=== PATIENT | female | born 1945 | race Caucasian/White ===

== ENCOUNTER 2021-04-15 17:16 | Inpatient (IN) | payer MEDICARE, OTHER ==
[~2021-04-15] VITALS: Ht 172.7 cm; Wt 86.0 kg
[~2021-04-15 17:16] MED LIST: CALCIUM; ESTR50GE TD; MAGN400C PO; NORCO10T PO; OMEP-84 PO; ROSU20TA2 PO; SYN0.088T PO
--- NOTE | 2021-04-15 17:42 | NUR ---
DAUGHTER CALLED NUMBER IS IN CHART WANTS TO BE UPDATED ON PT WHEN CAN.
[2021-04-15 17:54] LABS: URINE AMPHETAMINE SCREEN NEGATIVE (Neg); URINE BARBITUATE SCREEN NEGATIVE (Neg); URINE BENZODIAZEPINES SCREEN NEGATIVE (Neg); URINE CANNABINOID SCREEN NEGATIVE (Neg); URINE COCAINE SCREEN NEGATIVE (Neg); URINE METHADONE SCREEN NEGATIVE (Neg); URINE OPIATE SCREEN NEGATIVE (Neg); URINE PHENCYCLIDINE SCREEN NEGATIVE (Neg)
[2021-04-15 18:26] LABS: BASOPHILS % (AUTO) 0.8 % (0-1); EOSINOPHILS # (AUTO) 0.1 X10'3 (0-0.9); EOSINOPHILS % (AUTO) 0.9 % (0-6); HEMATOCRIT 37.4 % (35.0-45.0); HEMOGLOBIN 12.2 g/dl (12.0-16.0); LYMPHOCYTES # (AUTO) 1.5 X10'3 (1.1-4.8); LYMPHOCYTES % (AUTO) 24.8 % (21-51); MEAN CORPUSCULAR HEMOGLOBIN 26.6 PG (27.0-31.0); MEAN CORPUSCULAR HGB CONC 32.7 g/dL (33.0-36.5); MEAN CORPUSCULAR VOLUME 81.4 FL (78-98); MEAN PLATELET VOLUME 9.2 FL (7.4-10.4); MONOCYTES # (AUTO) 0.4 X10'3 (0-0.9); MONOCYTES % (AUTO) 7.2 % (2-12); NEUTROPHILS # (AUTO) 4.1 X10'3 (1.8-7.7); NEUTROPHILS % (AUTO) 66.3 % (42-75); PLATELET COUNT 194 X10'3 (140-440); RED CELL DISTRIBUTION WIDTH 19.2 % (11.5-14.5); WHITE BLOOD COUNT 6.2 X10'3 (4.5-11.0)
[2021-04-15 18:37] LABS: APTT 23 SECONDS (22-32)
[2021-04-15 18:42] LABS: ALANINE AMINOTRANSFERASE 79 U/L (12-78); ALBUMIN 3.5 G/DL (3.4-5.0); ALBUMIN/GLOBULIN RATIO 0.8 (1.1-1.5); ALKALINE PHOSPHATASE 103 IU/L (46-116); ANION GAP 13 (8-16); ASPARTATE AMINO TRANSFERASE 88 U/L (10-37); BILIRUBIN,TOTAL 0.2 MG/DL (0.1-1.0); BLOOD UREA NITROGEN 16 MG/DL (7-18); BUN/CREATININE RATIO 15.5 (6.6-38.0); CALCIUM 8.6 MG/DL (8.5-10.1); CHLORIDE 97 MMOL/L (99-107); CREATININE 1.03 MG/DL (0.40-0.90); GLUCOSE 112 MG/DL (70-104); SODIUM 138 MMOL/L (135-145); TOTAL CARBON DIOXIDE 27.6 MMOL/L (24-32); TOTAL PROTEIN 7.9 G/DL (6.4-8.2); eGFR 53 ML/MIN
[2021-04-15 18:46] LABS: POTASSIUM 3.3 MMOL/L (3.5-5.1)
[2021-04-15 18:52] LABS: ETHANOL < 0.010 GM/DL (0.0-0.010)
--- NOTE | 2021-04-15 19:27 | NUR ---
NOTED DURING REPORT THAT MAURICE BERMAN ORIGINALLY CARING FOR PT HAD DISCUSSED WITH DR MARISCAL TO NOT HAVE PT ON A STROKE ALERT.
[2021-04-15 20:13] LABS: CLARITY,URINE CLEAR (Clear); COLOR,URINE YELLOW (Yellow); GLUCOSE, URINE NEGATIVE (Neg); KETONES,URINE TRACE mg/dl (Neg); LEUKOCYTE ESTERASE ,URINE NEGATIVE (Neg); NITRITES, URINE NEGATIVE (Neg); OCCULT BLOOD,URINE SMALL (Neg); PH,URINE 6.5 (4.8-8.0); PROTEIN,URINE 100 mg/dl (Neg); UROBILINOGEN,URINE 0.2 E.U/dL (0.2-1.0)
[2021-04-15 20:20] LABS: UA COLLECTION TYPE STRAIGHT CATH
[2021-04-15 20:27] LABS: BACTERIA,URINE NONE SEEN /HPF (Neg); RBC,URINE 0-2 /HPF (0-2); SQUAMOUS EPITHELIAL CELL,UR FEW /LPF (FEW); WBC,URINE 0-4 /HPF (0-4)
--- NOTE | 2021-04-15 20:31 | NUR ---
SPOKE WITH DR. MATOS REGARDING PATIENT AND MOST RECENT NEURO ASSESSMENT. ALSO RELAYED INFORMATION FROM CAREGIVER REGARING PATIENT'S FLU-LIKE SYMPTOMS FOR FIVE DAYS--SORE THROAT, BODY ACHES, AND DIFFICULTY BREATHING. ALSO PREFACED THAT PATIENT HAS BEEN TAKING 20MG CORTIZONE IN THE AM AND 10MG CORTIZONE IN THE PM.
[2021-04-15] MEDS ORDERED: normal saline 1000ml 1,000 ML IV SCH (21:10)
[2021-04-15] MEDS ORDERED: ondansetron/PF 4mg/2ml inj IV PRN (21:10)
[2021-04-15] MEDS ORDERED: mag hydrox/Alum hydrox/simeth 30ml oral suspension PO PRN (21:10)
[2021-04-15] MEDS ORDERED: magnesium 2GM in 50ml NS 50 ML IV PRN (21:10)
[2021-04-15] MEDS ORDERED: magnesium Cl slow-release 64mg tablet PO PRN (21:10)
[2021-04-15] MEDS ORDERED: magnesium hydroxide 30ml (MOM) UD suspension PO PRN (21:10)
[2021-04-15] MEDS ORDERED: potassium Cl 20 mEq SR tablet PO PRN (21:10)
[2021-04-15] MEDS ORDERED: potassium CL 10mEq/100ml bag 100 ML IV PRN (21:10)
[2021-04-15] MEDS ORDERED: magnesium 4gm in 100ml NS 100 ML IV PRN (21:10)
[2021-04-15 21:15] LABS: TOTAL CELLS COUNTED 100
[2021-04-15 21:16] LABS: ANISOCYTOSIS 2+; LARGE PLATELETS FEW; PLATELET ESTIMATE NORMAL
[2021-04-15 21:17] LABS: POLYCHROMASIA FEW; TOXIC GRANULATION 1+; TOXIC VACUOLATION 1+
[2021-04-15] MEDS ORDERED: levoTHYROXINE sod inj. 100mcg/5 ml vial IV ONE (21:20)
[2021-04-15] MEDS ORDERED: dexamethasone 4mg/ml inj IV ONE (21:40)
[2021-04-15 22:05] LABS: MAGNESIUM 1.6 MG/DL (1.5-2.4)
[2021-04-16 01:25] LABS: BASOPHILS # (AUTO) 0.1 X10'3 (0-0.2); BASOPHILS % (AUTO) 0.9 % (0-1); EOSINOPHILS % (AUTO) 0.3 % (0-6); HEMATOCRIT 35.9 % (35.0-45.0); LYMPHOCYTES # (AUTO) 0.7 X10'3 (1.1-4.8); LYMPHOCYTES % (AUTO) 8.5 % (21-51); MEAN CORPUSCULAR HEMOGLOBIN 26.9 PG (27.0-31.0); MEAN CORPUSCULAR HGB CONC 33.3 g/dL (33.0-36.5); MEAN PLATELET VOLUME 8.3 FL (7.4-10.4); MONOCYTES # (AUTO) 0.4 X10'3 (0-0.9); MONOCYTES % (AUTO) 4.9 % (2-12); NEUTROPHILS # (AUTO) 6.5 X10'3 (1.8-7.7); NEUTROPHILS % (AUTO) 85.4 % (42-75); PLATELET COUNT 211 X10'3 (140-440); RED BLOOD COUNT 4.44 X10'6 (4.20-5.60); WHITE BLOOD COUNT 7.7 X10'3 (4.5-11.0)
[2021-04-16 01:39] LABS: ALANINE AMINOTRANSFERASE 80 U/L (12-78); ALBUMIN 3.2 G/DL (3.4-5.0); ALBUMIN/GLOBULIN RATIO 0.8 (1.1-1.5); ALKALINE PHOSPHATASE 101 IU/L (46-116); ANION GAP 12 (8-16); ASPARTATE AMINO TRANSFERASE 96 U/L (10-37); BILIRUBIN,TOTAL 0.3 MG/DL (0.1-1.0); BLOOD UREA NITROGEN 15 MG/DL (7-18); BUN/CREATININE RATIO 16.7 (6.6-38.0); CALCIUM 8.1 MG/DL (8.5-10.1); CHLORIDE 100 MMOL/L (99-107); GLUCOSE 154 MG/DL (70-104); MAGNESIUM 1.7 MG/DL (1.5-2.4); POTASSIUM 3.3 MMOL/L (3.5-5.1); SODIUM 138 MMOL/L (135-145); TOTAL CARBON DIOXIDE 26.2 MMOL/L (24-32); TOTAL PROTEIN 7.4 G/DL (6.4-8.2); eGFR 61 ML/MIN
[2021-04-16 02:53] LABS: LARGE PLATELETS FEW; PLATELET ESTIMATE NORMAL; POLYCHROMASIA FEW
[2021-04-16 02:54] LABS: ANISOCYTOSIS 2+
--- NOTE | 2021-04-16 07:55 | NUR ---
Patient in room ED HALL03. I have received report from Ozzie RICHARDS and had the opportunity to ask questions and assume patient care.
[2021-04-16] MEDS ORDERED: enoxaparin 40mg/0.4ml syringe SUBCUT SCH (08:00)
[2021-04-16] MEDS: docusate sod 100mg capsule PO SCH ×2 (08:00→20:00)
[2021-04-16] MEDS: K and/or MAG REPLACEMENT MC SCH ×2 (08:00→20:00)
[2021-04-16] MEDS ORDERED: dexamethasone inj 6 MG in normal saline 50ml IV soln 50 ML IV SCH (08:00)
[2021-04-16 08:30] VITALS: BP 114/65
[2021-04-16] MEDS: potassium Cl 20 mEq SR tablet PO PRN ×3 (08:55→17:56)
[2021-04-16] MEDS: acetaminophen 325mg tablet PO PRN (08:55)
[2021-04-16 10:38] VITALS: BP 123/59
[2021-04-16] MEDS ORDERED: HYDR20TA24 PO (12:02)
[2021-04-16] MEDS ORDERED: HYDR12.55 PO (12:02)
[2021-04-16] MEDS ORDERED: HYDR-4318 PO (12:02)
--- NOTE | 2021-04-16 12:02 | NUR ---
BMI screen: Pt BMI 2.7 w/ current wt not scaled likely error at 8.18kg. MARY d/w RN regarding scaled wt this admit. Addendum: 04/16/21 at [address] Amended: Links added.
--- NOTE | 2021-04-16 12:04 | NUR ---
PAGER ID: [phone] MESSAGE: [phone], [place] new medications entered into medrec, please address. thank you, john [phone]
--- NOTE | 2021-04-16 12:07 | NUR ---
wants to know who manages this patients hydrocortisone prior to addressing her med rec.
--- NOTE | 2021-04-16 12:13 | NUR ---
Patient states she takes 20 mg of hydrocortisone in the morning and 10mg at night, patient is alert and oriented x4. Dr. 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 Called [facility] in [place] to ask for a faxed report of medications she gets filled there. Had a documented allergy to prednisone, patient states she is not allergic to prednisone to her knowledge. Attempted to call Dr. Shelton, no answer at the office.
[2021-04-16] MEDS ORDERED: pneumococcal 23-VAL P-sac vacc 25 mcg/0.5ml vial IMVAC ONE (13:15)
[2021-04-16] MEDS ORDERED: CALC-1215 PO (13:43)
--- NOTE | 2021-04-16 14:09 | NUR ---
PAGER ID: [phone] MESSAGE: [phone], [place] patient is complaining of 8/10 back pain, takes norco at home. Can i please get something ordered for her? john [phone]
--- NOTE | 2021-04-16 14:13 | NUR ---
Dr. Sanchez office coordinator receptionist returned my call and confirmed that patient takes hydrocortisone 20mg in the morning and 10mg at night, as patient stated.
[2021-04-16] MEDS ORDERED: HYDROcodone/acetaminophen 10/325mg tab PO ONE (14:15)
[2021-04-16 14:37] VITALS: BP 131/76
--- NOTE | 2021-04-16 15:27 | NUR ---
Agreeable to flu and pneumococcal vaccine, would like to wait until d/c to receive them.
--- NOTE | 2021-04-16 15:55 | NUR ---
Per MD we are not pursing a stroke work up, patient has no stroke deficits and is alert and oriented x4
[2021-04-16 18:00] VITALS: BP 123/60
--- NOTE | 2021-04-16 18:27 | NUR ---
Problems reprioritized. Patient report given, questions answered & plan of care reviewed with Jerilyn RICHARDS.
[2021-04-16] MEDS: HYDROcodone/acetaminophen 10/325mg tab PO PRN (19:19)
[2021-04-16] MEDS ORDERED: hydrocortisone 10mg tablet PO SCH ×2 (20:00→21:00)
[2021-04-16 22:37] VITALS: BP 123/70
[2021-04-17 02:00] VITALS: BP 126/60
--- NOTE | 2021-04-17 06:14 | NUR ---
Patient in room ORTHO 4022. I have received report from Jerilyn RICHARDS and had the opportunity to ask questions and assume patient care.
[2021-04-17 06:38] VITALS: BP 132/77
[2021-04-17] MEDS ORDERED: levoTHYROXINE 112mcg tablet PO SCH (07:00)
--- NOTE | 2021-04-17 07:02 | NUR ---
PAGER ID: [phone] MESSAGE: [phone], [place] complaining of shortness of breath and chest pain, doing EKG now. Can i please get albuterol inhaler? sp02 on room air is 95%. Catrina [phone]
[2021-04-17] MEDS ORDERED: ALBUTEROL INHALER 1 PUFF/90 MCG INHALER IH PRN (07:05)
[2021-04-17] MEDS: docusate sod 100mg capsule PO SCH (08:00)
[2021-04-17] MEDS: K and/or MAG REPLACEMENT MC SCH (08:00)
[2021-04-17] MEDS ORDERED: HYDROchlorothiazide 25mg tablet PO SCH (08:00)
[2021-04-17] MEDS ORDERED: hydrocortisone 10mg tablet PO SCH (08:00)
[2021-04-17] MEDS ORDERED: HYDROchlorothiazide 12.5mg capsule PO SCH (08:00)
[2021-04-17] MEDS ORDERED: enoxaparin 30mg/0.3ml syringe SUBCUT SCH (08:00)
[2021-04-17] MEDS ORDERED: FLU VACC QS2021-22(6MOS UP)/PF 60 MCG/0.5 ML SYRINGE IM ONE (08:00)
[2021-04-17 08:05] LABS: BASOPHILS % (AUTO) 0.1 % (0-1); EOSINOPHILS % (AUTO) 0 % (0-6); HEMATOCRIT 36.3 % (35.0-45.0); HEMOGLOBIN 11.8 g/dl (12.0-16.0); LYMPHOCYTES % (AUTO) 6.6 % (21-51); MEAN CORPUSCULAR HEMOGLOBIN 26.9 PG (27.0-31.0); MEAN CORPUSCULAR HGB CONC 32.5 g/dL (33.0-36.5); MEAN CORPUSCULAR VOLUME 82.6 FL (78-98); MEAN PLATELET VOLUME 9.4 FL (7.4-10.4); MONOCYTES # (AUTO) 0.7 X10'3 (0-0.9); MONOCYTES % (AUTO) 4.4 % (2-12); NEUTROPHILS # (AUTO) 13.5 X10'3 (1.8-7.7); NEUTROPHILS % (AUTO) 88.9 % (42-75); PLATELET COUNT 207 X10'3 (140-440); RED BLOOD COUNT 4.39 X10'6 (4.20-5.60); WHITE BLOOD COUNT 15.2 X10'3 (4.5-11.0)
[2021-04-17] MEDS: HYDROcodone/acetaminophen 10/325mg tab PO PRN (08:17)
--- NOTE | 2021-04-17 09:19 | NUR ---
Patient complained of shortness of breath and chest pain this morning, EKG done, sinus rhythm. Paged Dr. Richmond, got albuterol inhaler ordered. Patients sp02 at this time was in high 90s on room air, norco given for back pain.
[2021-04-17 09:53] LABS: ALANINE AMINOTRANSFERASE 69 U/L (12-78); ALBUMIN 3.1 G/DL (3.4-5.0); ALBUMIN/GLOBULIN RATIO 0.7 (1.1-1.5); ALKALINE PHOSPHATASE 91 IU/L (46-116); ANION GAP 11 (8-16); ASPARTATE AMINO TRANSFERASE 64 U/L (10-37); BILIRUBIN,TOTAL 0.3 MG/DL (0.1-1.0); BLOOD UREA NITROGEN 19 MG/DL (7-18); BUN/CREATININE RATIO 18.8 (6.6-38.0); CALCIUM 8.8 MG/DL (8.5-10.1); CHLORIDE 104 MMOL/L (99-107); CREATININE 1.01 MG/DL (0.40-0.90); GLUCOSE 154 MG/DL (70-104); MAGNESIUM 1.7 MG/DL (1.5-2.4); POTASSIUM 4.1 MMOL/L (3.5-5.1); SODIUM 140 MMOL/L (135-145); TOTAL CARBON DIOXIDE 25.2 MMOL/L (24-32); TOTAL PROTEIN 7.3 G/DL (6.4-8.2); eGFR 54 ML/MIN
[2021-04-17 10:25] VITALS: BP 148/75
--- NOTE | 2021-04-17 11:08 | NUR ---
Initial: Pt admit DX COVID-19, hypothyroidism, and encephalopathy-now resolved per EMR. Pt PO 100% heart healthy diet on room air meeting estimated needs. RD d/w RN regarding liberalization to regular diet if MD agreeable given no cardiac PMH per EMR and serum Na WNL. RN aware of BMI 2.7 pending scaled wt as current wt 8.18kg error. Pt daily etoh per MD note however RN reports pt drinks glass of wine w/ dinner and no more; tox screen WNL on admit. No nutrition intervention at this time. Will continue to monitor. Rec: 1. liberalize to regular diet; no cardiac hx per EMR w/ serum Na WNL 2. routine bowel care 3. scaled wt this admit; subsequent weekly wts Addendum: 04/17/21 at [address] Amended: Links added.
[2021-04-17] MEDS: acetaminophen 325mg tablet PO PRN (11:25)
--- NOTE | 2021-04-17 11:38 | NUR ---
Medicated patient for fever.
--- NOTE | 2021-04-17 13:17 | NUR ---
Discussed with MD patients fever and episode of shortness of breath this AM, MD to d/c patient. Per patient she has no one to take her home, lives in [place]. Page sent to case management.
--- NOTE | 2021-04-17 13:27 | NUR ---
Attempted to call patients daughter regarding discharge and need for a ride, no answer. Mailbox was full, not able to leave a message at this time.
--- NOTE | 2021-04-17 13:33 | NUR ---
discharged pt for home today, pt does not have a ride home, case mangcarrie got a hold of [facility] [employer] and behavioral health case manager told me that [employer] [facility] would take this pt home to [place] but will be charging an extra 100 dollars because the pt is from COVID unit, nursing sup consented for pt to be driven home by [employer]
--- NOTE | 2021-04-17 13:43 | NUR ---
Per case management [facility] will take covid patients. Attempting to call cab company now.
[2021-04-17] MEDS ORDERED: POTA10TA37 PO (14:08)
[2021-04-17] MEDS ORDERED: LEVO112T5 PO (14:08)
--- NOTE | 2021-04-17 14:48 | NUR ---
Called medications in to [facility]
--- NOTE | 2021-04-17 14:53 | NUR ---
Walked patient with [facility] 60 feet, sp02 96% during ambulation therefor did not qualify for home oxygen.
--- NOTE | 2021-04-17 15:12 | NUR ---
Patient discharged home via [facility], medications called in to [facility] in [place]. Patient was given discharge instructions including when to seek help if needed. Provided patient with sp02 monitor to monitor oxygen at home. Patient understood all instructions that were given to her and had no questions for this RN. IVs removed cannula intact, no s/s of phlebitis.
[2021-04-18] MEDS ORDERED: LEVO112T5 PO (20:12)
[2021-04-18] MEDS ORDERED: POTA-280 PO (20:12)
== END 2021-04-17 15:00 | disposition home or self-care (01) | DRG 178 ==
LOC: ER 17:17 → ED HOLD 21:12 → EDBEDREQ 04-16 07:29 → ORTHO 4S 04-16 08:25
PROVIDERS: ADMIT Internal Medicine; ATTEND Internal Medicine
DX: U07.1 COVID-19 (principal); G93.49 Other encephalopathy; E23.0 Hypopituitarism; E03.9 Hypothyroidism, unspecified; E78.5 Hyperlipidemia, unspecified; R47.81 Slurred speech; R94.6 Abnormal results of thyroid function studies; I25.10 Atherosclerotic heart disease of native coronary artery without angina pectoris; I44.7 Left bundle-branch block, unspecified; Z79.890 Hormone replacement therapy; Z28.21 Immunization not carried out because of patient refusal; Z88.8 Allergy status to other drugs, medicaments and biological substances; Z79.899 Other long term (current) drug therapy; Z72.89 Other problems related to lifestyle
CPT/HCPCS: 36415; 70450; 71045; 80053; 80305; 80320; 81001; 82948; 83735; 84132; 84145; 84439; 84443; 84484; 85007; 85008; 85025; 85610; 85730; 87081; 87635; 93005; 99285; C9803; G0378; J1100; J1650; J3480; J3490; J7030

== ENCOUNTER 2021-04-18 12:34 | Inpatient (IN) | payer MEDICARE ==
[2021-04-18] VITALS (8 sets, daily range): BP systolic 72–103; BP diastolic 43–58
[~2021-04-18] VITALS: Ht 160 cm; Wt 75.0 kg
[~2021-04-18 12:34] MED LIST changes: +CALC-1215 PO; -CALCIUM; +HYDR-4318 PO; +HYDR12.55 PO; +HYDR20TA24 PO; +LEVO112T5 PO; -NORCO10T PO; +POTA10TA37 PO; -SYN0.088T PO
[2021-04-18] MEDS ORDERED: normal saline 1000ML IV soln IV ONE (12:40)
[2021-04-18 13:55] LABS: ALANINE AMINOTRANSFERASE 104 U/L (12-78); ALBUMIN/GLOBULIN RATIO 0.7 (1.1-1.5); ALKALINE PHOSPHATASE 95 IU/L (46-116); ANION GAP 20 (8-16); ASPARTATE AMINO TRANSFERASE 330 U/L (10-37); BILIRUBIN,TOTAL 0.5 MG/DL (0.1-1.0); BLOOD UREA NITROGEN 32 MG/DL (7-18); BUN/CREATININE RATIO 14.3 (6.6-38.0); CHLORIDE 101 MMOL/L (99-107); CREATININE 2.23 MG/DL (0.40-0.90); GLUCOSE 125 MG/DL (70-104); MAGNESIUM 1.7 MG/DL (1.5-2.4); POTASSIUM 4.3 MMOL/L (3.5-5.1); SODIUM 139 MMOL/L (135-145); TOTAL CARBON DIOXIDE 17.7 MMOL/L (24-32); TOTAL PROTEIN 7.3 G/DL (6.4-8.2); eGFR 22 ML/MIN
[2021-04-18 14:10] LABS: BASOPHILS # (AUTO) 0.1 X10'3 (0-0.2); EOSINOPHILS % (AUTO) 0.1 % (0-6); MONOCYTES # (AUTO) 0.2 X10'3 (0-0.9); MONOCYTES % (AUTO) 1.5 % (2-12)
[2021-04-18] MEDS ORDERED: piperacillin/tazo 3.375gm/50ml 50 ML IV ONE (14:10)
[2021-04-18] MEDS ORDERED: vancomycin/NS 1 GM ADD-VANTAGE 250 ML IV ONE (14:10)
[2021-04-18] MEDS ORDERED: aspirin 300mg supp.rect RC ONE (14:10)
[2021-04-18 14:11] LABS: BASOPHILS % (AUTO) 0.8 % (0-1); HEMATOCRIT 36.8 % (35.0-45.0); HEMOGLOBIN 11.9 g/dl (12.0-16.0); LYMPHOCYTES # (AUTO) 1.8 X10'3 (1.1-4.8); MEAN CORPUSCULAR HEMOGLOBIN 26.5 PG (27.0-31.0); MEAN CORPUSCULAR HGB CONC 32.4 g/dL (33.0-36.5); MEAN CORPUSCULAR VOLUME 81.7 FL (78-98); MEAN PLATELET VOLUME 8.9 FL (7.4-10.4); NEUTROPHILS # (AUTO) 9.6 X10'3 (1.8-7.7); NEUTROPHILS % (AUTO) 82.6 % (42-75); PLATELET COUNT 206 X10'3 (140-440); RED BLOOD COUNT 4.51 X10'6 (4.20-5.60); WHITE BLOOD COUNT 11.7 X10'3 (4.5-11.0)
[2021-04-18] MEDS ORDERED: ringers solution, lacted 1,000 ML IV ONE ×2 (14:15→23:00)
[2021-04-18] MEDS ORDERED: hydrocortisone sod succ/PF 100mg/2ml inj. IV ONE (14:15)
[2021-04-18] MEDS ORDERED: heparin 10,000 units/1 ML INJ IV PRN ×2 (14:20→19:40)
[2021-04-18] MEDS ORDERED: heparin 10,000 units/1 ML INJ IV ONE ×2 (14:20→19:40)
[2021-04-18 14:57] LABS: ANISOCYTOSIS 2+; PLATELET ESTIMATE NORMAL; TOTAL CELLS COUNTED 100
--- NOTE | 2021-04-18 15:05 | NUR ---
DAWIT [phone] BENNETT
[2021-04-18 15:25] LABS: APTT 25 SECONDS (22-32)
[2021-04-18 15:25] LABS: ABG BASE EXCESS -9.6 mmol/L (-2.0-2.0); ABG HCO3 13.7 mmol/L (22.0-26.0); ABG OXYGEN SATURATION 90.2 % (94-97); ABG PCO2 (T) 25.2 mmHg (32.0-45.0); ABG PO2 (T) 68.7 mmHg (75.0-100.0); FCOHb 0.3 % (0.0-3.9); FLOW 4 L/min; FMetHb 0.1 % (0.0-1.5); FO2Hb 89.8 % (94-97); PATIENT TEMPERATURE 38.3; TOTAL HEMOGLOBIN 12.1 G/dl (12.0-16.0)
[2021-04-18 15:32] LABS: CLARITY,URINE SLIGHTLY CLOUDY (Clear); COLOR,URINE YELLOW (Yellow); GLUCOSE, URINE NEGATIVE (Neg); KETONES,URINE NEGATIVE (Neg); LEUKOCYTE ESTERASE ,URINE NEGATIVE (Neg); NITRITES, URINE NEGATIVE (Neg); OCCULT BLOOD,URINE LARGE (Neg); PROTEIN,URINE >=300 mg/dl (Neg); UROBILINOGEN,URINE 0.2 E.U/dL (0.2-1.0)
[2021-04-18 15:44] LABS: UA COLLECTION TYPE NON-SPECIFIED
[2021-04-18 15:45] LABS: HYALINE CASTS 0-3 /LPF (NEGATIVE); SQUAMOUS EPITHELIAL CELL,UR FEW /LPF (FEW)
[2021-04-18 15:46] LABS: BACTERIA,URINE 1+ /HPF (Neg); MUCUS STRANDS FEW /LPF (Neg); WBC,URINE 0-4 /HPF (0-4)
[2021-04-18] MEDS: heparin 25,000 UNIT/250ml bag 250 ML IV SCH (16:02)
--- NOTE | 2021-04-18 16:50 | NUR ---
DR CHEEMA MADE AWARE OF TEMP 101.1 NO ORDERS AT THIS TIME
[2021-04-18 16:53] LABS: CREATINE KINASE 15504 U/L (26-192)
[2021-04-18] MEDS ORDERED: acetaminophen 325mg tablet PO ONE (18:35)
[2021-04-18] MEDS ORDERED: acetaminophen 325mg tablet PO PRN (19:40)
[2021-04-18] MEDS ORDERED: heparin 25,000 UNIT/250ml bag 250 ML IV SCH (19:40)
[2021-04-18] MEDS ORDERED: ondansetron/PF 4mg/2ml inj IV PRN (19:40)
[2021-04-18] MEDS ORDERED: potassium Cl 20mEq/100mL bag 100 ML IV PRN (19:40)
[2021-04-18] MEDS ORDERED: vancomycin inj 1,250 MG in normal saline 250ml IV soln 250 ML IV SCH (20:00)
[2021-04-18] MEDS ORDERED: POTA-280 PO (20:12)
[2021-04-18] MEDS ORDERED: LEVO112T5 PO (20:12)
[2021-04-18] MEDS: normal saline 1000ml 1,000 ML IV SCH (20:39)
[2021-04-18 20:44] LABS: BASOPHILS % (AUTO) 0.1 % (0-1); EOSINOPHILS % (AUTO) 0 % (0-6); HEMATOCRIT 37.3 % (35.0-45.0); HEMOGLOBIN 12.1 g/dl (12.0-16.0); LYMPHOCYTES # (AUTO) 0.5 X10'3 (1.1-4.8); LYMPHOCYTES % (AUTO) 3.8 % (21-51); MEAN CORPUSCULAR HEMOGLOBIN 26.4 PG (27.0-31.0); MEAN CORPUSCULAR HGB CONC 32.5 g/dL (33.0-36.5); MEAN CORPUSCULAR VOLUME 81.4 FL (78-98); MEAN PLATELET VOLUME 8.8 FL (7.4-10.4); MONOCYTES # (AUTO) 0.1 X10'3 (0-0.9); MONOCYTES % (AUTO) 1.2 % (2-12); NEUTROPHILS # (AUTO) 11.5 X10'3 (1.8-7.7); NEUTROPHILS % (AUTO) 94.9 % (42-75); PLATELET COUNT 207 X10'3 (140-440); RED BLOOD COUNT 4.58 X10'6 (4.20-5.60); RED CELL DISTRIBUTION WIDTH 19.5 % (11.5-14.5); WHITE BLOOD COUNT 12.1 X10'3 (4.5-11.0)
[2021-04-18] MEDS ORDERED: REMDESIVIR 200 MG in NS 100ml IVPB Loading dose IV ONE (20:50)
[2021-04-18 21:02] LABS: APTT 72 SECONDS (22-32)
[2021-04-18 21:07] LABS: ALANINE AMINOTRANSFERASE 94 U/L (12-78); ALBUMIN 2.2 G/DL (3.4-5.0); ALBUMIN/GLOBULIN RATIO 0.6 (1.1-1.5); ALKALINE PHOSPHATASE 74 IU/L (46-116); ANION GAP 16 (8-16); ASPARTATE AMINO TRANSFERASE 326 U/L (10-37); BILIRUBIN,TOTAL 0.5 MG/DL (0.1-1.0); BLOOD UREA NITROGEN 30 MG/DL (7-18); BUN/CREATININE RATIO 16.9 (6.6-38.0); CALCIUM 7.8 MG/DL (8.5-10.1); CHLORIDE 105 MMOL/L (99-107); CREATININE 1.78 MG/DL (0.40-0.90); GLUCOSE 165 MG/DL (70-104); SODIUM 140 MMOL/L (135-145); TOTAL CARBON DIOXIDE 18.9 MMOL/L (24-32); eGFR 28 ML/MIN
[2021-04-18 21:08] LABS: AMYLASE 188 U/L (25-115); BILIRUBIN,DIRECT 0.2 MG/DL (0-0.3); LIPASE 322 U/L (73-393); MAGNESIUM 1.4 MG/DL (1.5-2.4); PHOSPHORUS 4.4 MG/DL (2.3-4.5)
[2021-04-18 21:51] LABS: ANISOCYTOSIS 2+; PLATELET ESTIMATE NORMAL
[2021-04-18 21:52] LABS: BURR CELLS FEW; ELLIPTOCYTES FEW
[2021-04-18] MEDS ORDERED: NORepinephrine 8mg/ 250ml NS 250 ML IV SCH (23:00)
[2021-04-18] MEDS ORDERED: NORepinephrine 8mg/ 250ml NS 250 ML IV ONE (23:06)
[2021-04-19] VITALS (17 sets, daily range): BP systolic 91–136; BP diastolic 40–72
[2021-04-19] MEDS ORDERED: dexamethasone 4mg/ml inj IM SCH
[2021-04-19] MEDS: dexamethasone inj 8 MG in normal saline 50ml IV soln 50 ML IV SCH ×4 (00:40→23:54)
[2021-04-19] MEDS: piperacillin/tazo 3.375gm/50ml 50 ML IV SCH ×4 (00:46→23:54)
[2021-04-19 02:58] LABS: BASOPHILS % (AUTO) 0.1 % (0-1); EOSINOPHILS % (AUTO) 0 % (0-6); HEMATOCRIT 34.1 % (35.0-45.0); HEMOGLOBIN 11.2 g/dl (12.0-16.0); LYMPHOCYTES # (AUTO) 0.6 X10'3 (1.1-4.8); LYMPHOCYTES % (AUTO) 3.8 % (21-51); MEAN CORPUSCULAR HEMOGLOBIN 26.7 PG (27.0-31.0); MEAN CORPUSCULAR HGB CONC 32.9 g/dL (33.0-36.5); MONOCYTES # (AUTO) 0.2 X10'3 (0-0.9); MONOCYTES % (AUTO) 1.5 % (2-12); NEUTROPHILS # (AUTO) 14.3 X10'3 (1.8-7.7); NEUTROPHILS % (AUTO) 94.6 % (42-75); PLATELET COUNT 200 X10'3 (140-440); RED BLOOD COUNT 4.21 X10'6 (4.20-5.60); RED CELL DISTRIBUTION WIDTH 19.5 % (11.5-14.5); WHITE BLOOD COUNT 15.1 X10'3 (4.5-11.0)
[2021-04-19 03:10] LABS: APTT 63 SECONDS (22-32)
[2021-04-19 03:18] LABS: ALANINE AMINOTRANSFERASE 85 U/L (12-78); ALBUMIN 2.1 G/DL (3.4-5.0); ALBUMIN/GLOBULIN RATIO 0.6 (1.1-1.5); ALKALINE PHOSPHATASE 66 IU/L (46-116); ANION GAP 13 (8-16); ASPARTATE AMINO TRANSFERASE 286 U/L (10-37); BILIRUBIN,TOTAL 0.5 MG/DL (0.1-1.0); BLOOD UREA NITROGEN 30 MG/DL (7-18); BUN/CREATININE RATIO 18.4 (6.6-38.0); CALCIUM 7.8 MG/DL (8.5-10.1); CHLORIDE 108 MMOL/L (99-107); CREATININE 1.63 MG/DL (0.40-0.90); GLUCOSE 146 MG/DL (70-104); MAGNESIUM 1.1 MG/DL (1.5-2.4); PHOSPHORUS 5.4 MG/DL (2.3-4.5); POTASSIUM 4.1 MMOL/L (3.5-5.1); SODIUM 142 MMOL/L (135-145); TOTAL CARBON DIOXIDE 21.3 MMOL/L (24-32); TOTAL PROTEIN 5.7 G/DL (6.4-8.2); eGFR 31 ML/MIN
[2021-04-19 04:00] LABS: ANISOCYTOSIS 2+; PLATELET ESTIMATE NORMAL; TOTAL CELLS COUNTED 100
[2021-04-19 04:01] LABS: BURR CELLS 1+
[2021-04-19 04:02] LABS: ELLIPTOCYTES FEW
[2021-04-19] MEDS ORDERED: magnesium 2GM in 50ml NS 50 ML IV ONE (04:35)
[2021-04-19] MEDS ORDERED: rocuronium 10mg/ml inj IV ONE (08:00)
[2021-04-19] MEDS ORDERED: etomidate 2mg/ml inj. ONE (08:00)
[2021-04-19] MEDS ORDERED: sod chloride 0.9% 10ml flush syringe IV ONE (08:00)
[2021-04-19] MEDS ORDERED: pantoprazole 40MG/D5 100ML BAG 100 ML IV SCH (08:00)
[2021-04-19] MEDS: acetaminophen 1,000mg/100ml IV 100 ML IV SCH ×3 (08:28→20:00)
[2021-04-19] MEDS: K and/or MAG REPLACEMENT MC SCH (08:31)
[2021-04-19 10:10] LABS: C DIFF SPECIMEN=DIARRHEA? ACCEPTABLE; C DIFFICILE TOXINS A&B NEGATIVE (Neg)
[2021-04-19] MEDS: pantoprazole 40MG/NS 100ML BAG 100 ML IV SCH (10:42)
[2021-04-19] MEDS ORDERED: PERFLUTREN PROTEIN-A MICROSPHR (Optison) 0.22 MG/ML 3ML VIAL IV ONE (13:00)
--- NOTE | 2021-04-19 13:18 | NUR ---
Pt transferred to [facility]. Pt belongings accounted for prior to transfer.
[2021-04-19 16:36] LABS: BASOPHILS % (AUTO) 0.1 % (0-1); EOSINOPHILS % (AUTO) 0 % (0-6); HEMATOCRIT 34.2 % (35.0-45.0); HEMOGLOBIN 11.2 g/dl (12.0-16.0); LYMPHOCYTES # (AUTO) 0.4 X10'3 (1.1-4.8); LYMPHOCYTES % (AUTO) 2.4 % (21-51); MEAN CORPUSCULAR HEMOGLOBIN 26.5 PG (27.0-31.0); MEAN CORPUSCULAR HGB CONC 32.6 g/dL (33.0-36.5); MEAN PLATELET VOLUME 8.8 FL (7.4-10.4); MONOCYTES # (AUTO) 0.2 X10'3 (0-0.9); MONOCYTES % (AUTO) 1.2 % (2-12); NEUTROPHILS # (AUTO) 15.4 X10'3 (1.8-7.7); NEUTROPHILS % (AUTO) 96.3 % (42-75); PLATELET COUNT 194 X10'3 (140-440); RED BLOOD COUNT 4.22 X10'6 (4.20-5.60); RED CELL DISTRIBUTION WIDTH 20.3 % (11.5-14.5)
[2021-04-19 16:54] LABS: ALANINE AMINOTRANSFERASE 81 U/L (12-78); ALBUMIN/GLOBULIN RATIO 0.5 (1.1-1.5); ALKALINE PHOSPHATASE 61 IU/L (46-116); ANION GAP 14 (8-16); ASPARTATE AMINO TRANSFERASE 252 U/L (10-37); BILIRUBIN,TOTAL 0.4 MG/DL (0.1-1.0); BLOOD UREA NITROGEN 28 MG/DL (7-18); BUN/CREATININE RATIO 17.4 (6.6-38.0); CALCIUM 7.9 MG/DL (8.5-10.1); CHLORIDE 111 MMOL/L (99-107); CREATININE 1.61 MG/DL (0.40-0.90); GLUCOSE 169 MG/DL (70-104); POTASSIUM 4.1 MMOL/L (3.5-5.1); SODIUM 146 MMOL/L (135-145); TOTAL PROTEIN 6.2 G/DL (6.4-8.2); eGFR 31 ML/MIN
[2021-04-19 17:05] LABS: BILIRUBIN,DIRECT 0.2 MG/DL (0-0.3); MAGNESIUM 2.3 MG/DL (1.5-2.4); PHOSPHORUS 4.7 MG/DL (2.3-4.5)
[2021-04-19 17:21] LABS: CREATINE KINASE 13155 U/L (26-192)
[2021-04-19] MEDS: vancomycin inj 500 MG in normal saline 100ml IV soln 100 ML IV SCH (17:30)
[2021-04-19] MEDS: heparin 25,000 UNIT/250ml bag 250 ML IV SCH (17:33)
--- NOTE | 2021-04-19 19:00 | NUR ---
Stopped the Heparin drip as ordered by the physician. Heparin SQ will start at midnight.
--- NOTE | 2021-04-19 20:00 | NUR ---
Med details say that pt has already reached max dose of acetaminophen. However, I added up the doses with the cupola charger Kayla and pt has not. Med was given as ordered.
[2021-04-19] MEDS ORDERED: REMDESIVIR 100 MG in NS 100ml IVPB IV SCH (21:00)
[2021-04-19] MEDS: normal saline 1000ml 1,000 ML IV SCH ×2 (23:17→23:21)
[2021-04-19] MEDS: heparin, porcine 5000 units/ml vial SQ SCH (23:54)
[2021-04-20 02:00] VITALS: BP 145/67
[2021-04-20] MEDS: acetaminophen 1,000mg/100ml IV 100 ML IV SCH (02:06)
[2021-04-20 04:48] LABS: BASOPHILS % (AUTO) 0.2 % (0-1); EOSINOPHILS % (AUTO) 0 % (0-6); HEMATOCRIT 30.8 % (35.0-45.0); HEMOGLOBIN 10.1 g/dl (12.0-16.0); LYMPHOCYTES # (AUTO) 0.3 X10'3 (1.1-4.8); LYMPHOCYTES % (AUTO) 2.3 % (21-51); MEAN CORPUSCULAR HEMOGLOBIN 26.7 PG (27.0-31.0); MEAN CORPUSCULAR HGB CONC 32.9 g/dL (33.0-36.5); MEAN PLATELET VOLUME 8.9 FL (7.4-10.4); MONOCYTES # (AUTO) 0.3 X10'3 (0-0.9); MONOCYTES % (AUTO) 1.7 % (2-12); NEUTROPHILS # (AUTO) 14.5 X10'3 (1.8-7.7); NEUTROPHILS % (AUTO) 95.8 % (42-75); PLATELET COUNT 178 X10'3 (140-440); RED BLOOD COUNT 3.81 X10'6 (4.20-5.60); RED CELL DISTRIBUTION WIDTH 19.7 % (11.5-14.5); WHITE BLOOD COUNT 15.1 X10'3 (4.5-11.0)
[2021-04-20 05:02] LABS: APTT 63 SECONDS (22-32)
[2021-04-20 05:06] LABS: ALANINE AMINOTRANSFERASE 76 U/L (12-78); ALBUMIN 1.9 G/DL (3.4-5.0); ALBUMIN/GLOBULIN RATIO 0.5 (1.1-1.5); ALKALINE PHOSPHATASE 53 IU/L (46-116); ANION GAP 14 (8-16); ASPARTATE AMINO TRANSFERASE 241 U/L (10-37); BILIRUBIN,TOTAL 0.4 MG/DL (0.1-1.0); BLOOD UREA NITROGEN 29 MG/DL (7-18); BUN/CREATININE RATIO 18.7 (6.6-38.0); CALCIUM 7.4 MG/DL (8.5-10.1); CHLORIDE 107 MMOL/L (99-107); CREATININE 1.55 MG/DL (0.40-0.90); GLUCOSE 146 MG/DL (70-104); MAGNESIUM 2.1 MG/DL (1.5-2.4); PHOSPHORUS 4.3 MG/DL (2.3-4.5); POTASSIUM 3.7 MMOL/L (3.5-5.1); SODIUM 142 MMOL/L (135-145); TOTAL PROTEIN 6.1 G/DL (6.4-8.2); eGFR 33 ML/MIN
[2021-04-20 06:00] VITALS: BP 134/75
--- NOTE | 2021-04-20 06:39 | NUR ---
Patient in room ORTHO 4017. I have received report from Darci RICHARDS and had the opportunity to ask questions and assume patient care.
--- NOTE | 2021-04-20 07:19 | NUR ---
PAGER ID: [phone] MESSAGE: Omayra [phone] - RE: Amy Mitchell in 4017. Pt is requesting, every 15 minutes to get a diet ordered. Can she eat?
[2021-04-20] MEDS ORDERED: furosemide 20 MG/2 ML vial IV ONE (07:30)
[2021-04-20] MEDS: K and/or MAG REPLACEMENT MC SCH (08:00)
[2021-04-20 08:40] LABS: D-DIMER 2.61 MG/L FEU (0-0.50)
[2021-04-20] MEDS: heparin, porcine 5000 units/ml vial SQ SCH ×2 (08:50→16:34)
[2021-04-20] MEDS: pantoprazole 40MG/NS 100ML BAG 100 ML IV SCH (08:51)
[2021-04-20] MEDS: levoTHYROXINE 112mcg tablet PO SCH (08:51)
[2021-04-20] MEDS: atorvastatin 20mg tablet PO SCH (08:51)
[2021-04-20] MEDS: dexamethasone inj 8 MG in normal saline 50ml IV soln 50 ML IV SCH ×2 (08:51→16:32)
[2021-04-20 08:57] LABS: C-REACTIVE PROTEIN 30.94 MG/DL (0.0-0.5); CREATINE KINASE 7934 U/L (26-192)
[2021-04-20 10:00] VITALS: BP 140/72
[2021-04-20] MEDS: piperacillin/tazo 3.375gm/50ml 50 ML IV SCH ×2 (10:02→16:00)
[2021-04-20 14:00] VITALS: BP 152/77
[2021-04-20] MEDS: vancomycin inj 500 MG in normal saline 100ml IV soln 100 ML IV SCH (15:46)
[2021-04-20] MEDS: acetaminophen 325mg tablet PO PRN (17:40)
[2021-04-20 17:43] VITALS: BP 146/82
--- NOTE | 2021-04-20 18:30 | NUR ---
Patient in room ORTHO 4017. I have received report from LORETTA RICHARDS and had the opportunity to ask questions and assume patient care.
--- NOTE | 2021-04-20 18:39 | NUR ---
Problems reprioritized. Patient report given, questions answered & plan of care reviewed with Reyna RICHARDS.
--- NOTE | 2021-04-20 20:30 | NUR ---
PATIENT FOUND WITH OXYGEN/NC OUT OF HER NOSE AND SATS DOWN TO 83%. WILL EXPLAIN THAT SHE NEEDS TO KEEP HER OXYGEN ON BUT IS NOT UNDERSTANDING. HAS BEEN NON-VERBAL THIS SHIFT AND NOT ANSWERING QUESTIONS OF ORIENTATION WHEN ASKED. SPOKE TO PATIENT'S SISTER WHO INFORMED ME PATIENT'S NORMAL BASELINE IS ALERT AND ORIENTED X4. TANNA, PATIENT'S SISTER IS WANTING TO HAVE DISCHARGE PLANNING CONTACT SHE OR PATIENTS DAUGHTER PRIOR TO DISCHG FOR PLAN RATHER THAN DISCHARGING THE PATIENT HOME ALONE. EITHER SHE OR PTS. DAUGHTER WILL HAVE HER COME TO THEIR HOME AT TIME OF DISCHARGE.
[2021-04-20 22:00] VITALS: BP 129/72
[2021-04-21] MEDS: dexamethasone inj 8 MG in normal saline 50ml IV soln 50 ML IV SCH ×4 (00:45→23:36)
[2021-04-21] MEDS: heparin, porcine 5000 units/ml vial SQ SCH ×4 (00:45→23:36)
[2021-04-21] MEDS: piperacillin/tazo 3.375gm/50ml 50 ML IV SCH ×3 (00:52→16:22)
[2021-04-21] MEDS: acetaminophen 325mg tablet PO PRN (01:27)
--- NOTE | 2021-04-21 01:43 | NUR ---
Paged RT because she can't maintain her oxygen, the O2 is at 6liters NC and her oxygen saturation is 82-84% and she also has a fever of >101 so Tylenol was given orally. RT is going to set her up with high flow oxygen at this time.
[2021-04-21 02:00] VITALS: BP 147/78
--- NOTE | 2021-04-21 02:35 | NUR ---
0150 RT SET UP HIFLO N/C AND PLACED ON PATIENT INITIALLY PLACED HER AT 8 LITERS, BUT COULD NOT GET HER SATS UP ABOVE 84. WORKED UP IN INCREMENTS OF 1 TO 2 L'S UNTIL 14L, PATIENTS SATS WERE AT 90 AND ABLE TO MAINTAIN THOSE. FEBRILE AND WAS GIVEN TYLENOL FOR TEMP. VISIBLY SHAKING AND USE OF ACCESSORY MUSCLES NOTED. RR AT 30. WILL CONTINUE TO MONITOR CLOSELY.
--- NOTE | 2021-04-21 02:41 | NUR ---
PATIENT AWAKE, SATS AT 93%, RR RATE AT 20 AND NO LONGER SHAKING. ABLE TO ANSWER YES/NO TO QUESTIONS AND STATED "YES" WHEN I ASKED HER TO KEEP HER OXYGEN IN HER NOSE. PATIENT LOOKS BETTER AND STATED "YES" WHEN I ASKED IF SHE WAS FEELING BETTER.
[2021-04-21 06:00] VITALS: BP 144/71
[2021-04-21 06:09] LABS: BASOPHILS % (AUTO) 0.1 % (0-1); EOSINOPHILS % (AUTO) 0 % (0-6); HEMOGLOBIN 9.7 g/dl (12.0-16.0); LYMPHOCYTES # (AUTO) 0.4 X10'3 (1.1-4.8); LYMPHOCYTES % (AUTO) 2.7 % (21-51); MEAN CORPUSCULAR HEMOGLOBIN 26.3 PG (27.0-31.0); MEAN CORPUSCULAR HGB CONC 32.4 g/dL (33.0-36.5); MEAN CORPUSCULAR VOLUME 81.2 FL (78-98); MEAN PLATELET VOLUME 8.9 FL (7.4-10.4); MONOCYTES # (AUTO) 0.3 X10'3 (0-0.9); MONOCYTES % (AUTO) 2.2 % (2-12); NEUTROPHILS # (AUTO) 13.2 X10'3 (1.8-7.7); PLATELET COUNT 199 X10'3 (140-440); RED BLOOD COUNT 3.69 X10'6 (4.20-5.60); RED CELL DISTRIBUTION WIDTH 19.9 % (11.5-14.5); WHITE BLOOD COUNT 13.9 X10'3 (4.5-11.0)
[2021-04-21 06:32] LABS: APTT 33 SECONDS (22-32); D-DIMER 1.85 MG/L FEU (0-0.50)
[2021-04-21 06:38] LABS: PLATELET ESTIMATE NORMAL; POLYCHROMASIA 1+
[2021-04-21 06:39] LABS: ANISOCYTOSIS 2+; BURR CELLS 1+; ROULEAUX 1+; TARGET CELLS FEW
[2021-04-21 06:40] LABS: ALANINE AMINOTRANSFERASE 68 U/L (12-78); ALBUMIN 1.9 G/DL (3.4-5.0); ALBUMIN/GLOBULIN RATIO 0.4 (1.1-1.5); ALKALINE PHOSPHATASE 77 IU/L (46-116); ANION GAP 12 (8-16); ASPARTATE AMINO TRANSFERASE 166 U/L (10-37); BILIRUBIN,TOTAL 0.4 MG/DL (0.1-1.0); BLOOD UREA NITROGEN 27 MG/DL (7-18); BUN/CREATININE RATIO 17.6 (6.6-38.0); C-REACTIVE PROTEIN 16.36 MG/DL (0.0-0.5); CHLORIDE 111 MMOL/L (99-107); CREATININE 1.53 MG/DL (0.40-0.90); GLUCOSE 121 MG/DL (70-104); PHOSPHORUS 4.5 MG/DL (2.3-4.5); POTASSIUM 3.6 MMOL/L (3.5-5.1); SODIUM 146 MMOL/L (135-145); TOTAL CARBON DIOXIDE 22.6 MMOL/L (24-32); TOTAL PROTEIN 6.2 G/DL (6.4-8.2); eGFR 33 ML/MIN
--- NOTE | 2021-04-21 06:51 | NUR ---
Patient in room ORTHO 4017. I have received report from MAURICE Orellana and had the opportunity to ask questions and assume patient care.
--- NOTE | 2021-04-21 07:05 | NUR ---
Problems reprioritized. Patient report given, questions answered & plan of care reviewed with EMILIA RICHARDS.
[2021-04-21] MEDS: atorvastatin 20mg tablet PO SCH (07:24)
[2021-04-21] MEDS: levoTHYROXINE 112mcg tablet PO SCH (07:24)
[2021-04-21] MEDS: carVEDilol 3.125mg tablet PO SCH ×2 (07:24→20:42)
[2021-04-21] MEDS: lisinopril 5mg tablet PO SCH (07:25)
[2021-04-21] MEDS: K and/or MAG REPLACEMENT MC SCH (08:00)
[2021-04-21] MEDS: pantoprazole 40MG/NS 100ML BAG 100 ML IV SCH (08:20)
--- NOTE | 2021-04-21 09:05 | NUR ---
Initial: Pt admitted after being found down w/ acute hypoxemic respiratory failure secondary to Covid and w/ sepsis per EMR. Pt noted to require 14L oxygen. Currently on Heart Healthy diet w/ variable PO intake, avg 31% x 4 meals not meeting needs w/ minimal assistance need w/ meals.. Pt could benefit from Ensure Enlive TID for additional calorie and protein. LBM 04/20 noted to be diarrhea. Brenden score of 10, pt w/ rash on R foot though no open wounds per documentation. Will continue to monitor. Recs: 1. Liberalize to Regular diet if MD agreeable 2. Ensure Enlive TID; pending MD verification 3. Bowel care per rx, consider anti-diarrheal if diarrhea persists 4. Scaled wt this admit, subsequent weekly wts Addendum: 04/21/21 at [address] Amended: Links added.
[2021-04-21 10:00] VITALS: BP 151/80
[2021-04-21] MEDS ORDERED: lactose-reduced food (Ensure Enlive) - 237ml bottle PO SCH (13:00)
[2021-04-21 14:00] VITALS: BP 141/70
[2021-04-21] MEDS: vancomycin inj 500 MG in normal saline 100ml IV soln 100 ML IV SCH (14:20)
[2021-04-21] MEDS ORDERED: VANCOMYCIN LEVEL IV ONE ×2 (14:30)
--- NOTE | 2021-04-21 15:23 | NUR ---
Page Sent PAGER ID: [phone] MESSAGE: Chayo [phone] Re: Suri reyez [phone] pt is experiencing pain. Can I have an order for [place] please? Thank you
[2021-04-21] MEDS: traMADol 50MG tablet PO PRN (15:58)
[2021-04-21 18:00] VITALS: BP 146/76
--- NOTE | 2021-04-21 18:18 | NUR ---
Problems reprioritized. Patient report given, questions answered & plan of care reviewed with MAURICE Goodwin.
[2021-04-21] MEDS: lactobacillus rhamnosus 10,000 MMU CELLS/CAPSULE PO SCH (20:42)
[2021-04-21 22:00] VITALS: BP 165/84
[2021-04-22] MEDS: piperacillin/tazo 3.375gm/50ml 50 ML IV SCH ×4 (00:01→23:46)
[2021-04-22 02:00] VITALS: BP 151/96
[2021-04-22] MEDS: traMADol 50MG tablet PO PRN ×3 (04:32→11:58)
--- NOTE | 2021-04-22 04:35 | NUR ---
tramadol dropped on floor and put into rx waste. will administer another dose now
[2021-04-22 06:00] VITALS: BP 150/54
--- NOTE | 2021-04-22 06:13 | NUR ---
Patient in room ORTHO 4017. I have received report from MAURICE Goodwin and had the opportunity to ask questions and assume patient care.
[2021-04-22 07:42] LABS: BASOPHILS % (AUTO) 0.1 % (0-1); EOSINOPHILS % (AUTO) 0 % (0-6); HEMATOCRIT 31.2 % (35.0-45.0); HEMOGLOBIN 10.2 g/dl (12.0-16.0); LYMPHOCYTES # (AUTO) 0.6 X10'3 (1.1-4.8); LYMPHOCYTES % (AUTO) 3.8 % (21-51); MEAN CORPUSCULAR HEMOGLOBIN 26.4 PG (27.0-31.0); MEAN CORPUSCULAR HGB CONC 32.7 g/dL (33.0-36.5); MEAN CORPUSCULAR VOLUME 80.7 FL (78-98); MEAN PLATELET VOLUME 9.5 FL (7.4-10.4); MONOCYTES # (AUTO) 0.6 X10'3 (0-0.9); MONOCYTES % (AUTO) 3.9 % (2-12); NEUTROPHILS # (AUTO) 14.2 X10'3 (1.8-7.7); NEUTROPHILS % (AUTO) 92.2 % (42-75); PLATELET COUNT 209 X10'3 (140-440); RED BLOOD COUNT 3.87 X10'6 (4.20-5.60); RED CELL DISTRIBUTION WIDTH 20.2 % (11.5-14.5); WHITE BLOOD COUNT 15.4 X10'3 (4.5-11.0)
[2021-04-22 07:52] LABS: APTT 26 SECONDS (22-32); D-DIMER 1.49 MG/L FEU (0-0.50)
[2021-04-22] MEDS: dexamethasone inj 8 MG in normal saline 50ml IV soln 50 ML IV SCH ×3 (08:23→23:46)
[2021-04-22] MEDS: levoTHYROXINE 112mcg tablet PO SCH (08:23)
[2021-04-22] MEDS: carVEDilol 3.125mg tablet PO SCH ×2 (08:23→20:14)
[2021-04-22] MEDS: lactobacillus rhamnosus 10,000 MMU CELLS/CAPSULE PO SCH ×2 (08:23→20:14)
[2021-04-22] MEDS: lisinopril 5mg tablet PO SCH (08:23)
[2021-04-22] MEDS: heparin, porcine 5000 units/ml vial SQ SCH ×3 (08:24→23:46)
[2021-04-22 08:26] LABS: ALANINE AMINOTRANSFERASE 83 U/L (12-78); ALBUMIN/GLOBULIN RATIO 0.4 (1.1-1.5); ALKALINE PHOSPHATASE 96 IU/L (46-116); ANION GAP 12 (8-16); ASPARTATE AMINO TRANSFERASE 152 U/L (10-37); BILIRUBIN,TOTAL 0.4 MG/DL (0.1-1.0); BLOOD UREA NITROGEN 27 MG/DL (7-18); BUN/CREATININE RATIO 22.3 (6.6-38.0); C-REACTIVE PROTEIN 10.41 MG/DL (0.0-0.5); CALCIUM 8.2 MG/DL (8.5-10.1); CHLORIDE 109 MMOL/L (99-107); CREATININE 1.21 MG/DL (0.40-0.90); GLUCOSE 117 MG/DL (70-104); MAGNESIUM 2.1 MG/DL (1.5-2.4); PHOSPHORUS 3.4 MG/DL (2.3-4.5); POTASSIUM 3.7 MMOL/L (3.5-5.1); SODIUM 145 MMOL/L (135-145); TOTAL CARBON DIOXIDE 23.6 MMOL/L (24-32); TOTAL PROTEIN 6.5 G/DL (6.4-8.2); eGFR 44 ML/MIN
[2021-04-22] MEDS: pantoprazole 40MG/NS 100ML BAG 100 ML IV SCH (08:50)
[2021-04-22 10:00] VITALS: BP 146/72
--- NOTE | 2021-04-22 12:30 | NUR ---
Page Sent PAGER ID: [phone] MESSAGE: Chayo [phone] re: [place] Suri [phone] pt refuses to keep oxygen on, even with the sitter. She keeps pushing our hands away when we try to put it on her. Can I get a restraint order please? Thank you
[2021-04-22] MEDS: lactose-reduced food (Ensure Enlive) - 237ml bottle PO SCH ×2 (13:12→18:23)
[2021-04-22 14:00] VITALS: BP 150/77
[2021-04-22] MEDS ORDERED: VANCOMYCIN LEVEL IV ONE (14:30)
--- NOTE | 2021-04-22 15:47 | NUR ---
Paged Dr. Keane to see if she wanted tele for patient, waiting to here back.
--- NOTE | 2021-04-22 15:53 | NUR ---
PRESSURE ULCER EDUCATION: DEFINITION: A pressure ulcer is an area of skin that breaks down when you stay in one position too long. The constant pressure against the skin reduces the blood flow to that area and the affected tissue dies. CAUSES: "Being bedridden or in a wheelchair "Fragile skin "Having a chronic condition, such as diabetes or vascular disease "Inability to move certain parts of your body without assistance "Older age "Incontinence of urine or stool SYMPTOMS: "A reddened area that DOES NOT turn white when pressed on - this can be the beginning of a pressure ulcer "A blister, deep sore or a crater - these can be advanced pressure ulcers FIRST AID: "Relieve the pressure on this area "Keep the area clean and dry "Call your primary doctor if you see any of the above symptoms "DO NOT massage the area "DO NOT use a donut shaped or ring shaped pillow- these actually interfere with the blood flow and cause complications PREVENTION: "Check for pressure ulcers everyday "Change position at least every two hours to relieve pressure "Use items that help relieve pressure- pillows, sheepskin, foam padding, and powders. "Keep skin clean and dry "Eat healthy well balanced meals "Exercise daily IF YOU SEE ANY OF THESE SYMPTOMS WHILE IN THE HOSPITAL - TELL YOUR NURSE IMMEDIATELY. IF YOU SEE ANY OF THESE SYMPTOMS WHILE AT HOME OR HAVE ANY QUESTIONS OR CONCERNS ABOUT PRESSURE ULCERS - CALL YOUR PRIMARY DOCTOR IMMEDIATELY. Addendum: 04/22/21 at 1554 by Reyna Mckeon RN Amended: Links added.
--- NOTE | 2021-04-22 16:13 | NUR ---
paged RT regarding pt's saturation. She was restrained at 1555 b/c she kept taking her O2 off and desatting. She is currently satting at 84% with HF NC@15 and NRB@15 in restraints. Asking RT to come evaluate pt as she may need more support.
[2021-04-22] MEDS: ALBUTEROL INHALER 1 PUFF/90 MCG INHALER IH PRN ×2 (16:42→20:39)
[2021-04-22 17:00] LABS: ALANINE AMINOTRANSFERASE 102 U/L (12-78); ALBUMIN/GLOBULIN RATIO 0.4 (1.1-1.5); ALKALINE PHOSPHATASE 145 IU/L (46-116); ANION GAP 11 (8-16); ASPARTATE AMINO TRANSFERASE 212 U/L (10-37); BASOPHILS % (AUTO) 0.1 % (0-1); BILIRUBIN,TOTAL 0.4 MG/DL (0.1-1.0); BLOOD UREA NITROGEN 32 MG/DL (7-18); BUN/CREATININE RATIO 26.7 (6.6-38.0); CALCIUM 8.4 MG/DL (8.5-10.1); CHLORIDE 107 MMOL/L (99-107); EOSINOPHILS % (AUTO) 0 % (0-6); GLUCOSE 172 MG/DL (70-104); HEMATOCRIT 32.6 % (35.0-45.0); HEMOGLOBIN 10.5 g/dl (12.0-16.0); LYMPHOCYTES # (AUTO) 0.4 X10'3 (1.1-4.8); LYMPHOCYTES % (AUTO) 2.7 % (21-51); MEAN CORPUSCULAR HEMOGLOBIN 26.4 PG (27.0-31.0); MEAN CORPUSCULAR HGB CONC 32.3 g/dL (33.0-36.5); MEAN CORPUSCULAR VOLUME 81.7 FL (78-98); MEAN PLATELET VOLUME 9.5 FL (7.4-10.4); MONOCYTES # (AUTO) 0.7 X10'3 (0-0.9); MONOCYTES % (AUTO) 4.4 % (2-12); NEUTROPHILS # (AUTO) 15.1 X10'3 (1.8-7.7); NEUTROPHILS % (AUTO) 92.8 % (42-75); PLATELET COUNT 242 X10'3 (140-440); POTASSIUM 4.1 MMOL/L (3.5-5.1); RED BLOOD COUNT 3.99 X10'6 (4.20-5.60); RED CELL DISTRIBUTION WIDTH 20.1 % (11.5-14.5); SODIUM 143 MMOL/L (135-145); TOTAL CARBON DIOXIDE 25.5 MMOL/L (24-32); TOTAL PROTEIN 6.8 G/DL (6.4-8.2); WHITE BLOOD COUNT 16.3 X10'3 (4.5-11.0); eGFR 44 ML/MIN
--- NOTE | 2021-04-22 17:02 | NUR ---
Page Sent PAGER ID: [phone] MESSAGE: Chayo [phone] Re: [place], Suri 1469 pt's lungs are sounding wet now. she is also satting 83-84 on HF NC@15 and NRB@15. can i get Lasix to help with wetness? RT has seen pt and plans on putting her on tower or like. Thank you
[2021-04-22] MEDS ORDERED: furosemide 40mg/4ml inj IV ONE ×2 (17:10→19:45)
[2021-04-22 17:12] LABS: BILIRUBIN,DIRECT 0.2 MG/DL (0-0.3); PHOSPHORUS 4.3 MG/DL (2.3-4.5)
[2021-04-22 17:16] LABS: CREATINE KINASE 1122 U/L (26-192)
--- NOTE | 2021-04-22 18:06 | NUR ---
pt has received 40 mg of lasix for wet lungs. pt currently satting low 80s (81-82%). paged RT to let them know. Yue, RT said they would bring up a higher-flow machine for pt.
[2021-04-22 18:14] LABS: ANISOCYTOSIS 3+; HYPERSEGMENTED NEUTROPHILS 1+; PLATELET ESTIMATE NORMAL; TOTAL CELLS COUNTED 100
[2021-04-22 18:15] LABS: ELLIPTOCYTES FEW; SCHISTOCYTES FEW
--- NOTE | 2021-04-22 18:24 | NUR ---
Problems reprioritized. Patient report given, questions answered & plan of care reviewed with MAURICE Jean-Baptiste.
[2021-04-22 18:34] VITALS: BP 175/93
[2021-04-22] MEDS: morphine 10mg/0.5ml (conc. morphine) oral syringe PO PRN (20:15)
[2021-04-22 21:59] VITALS: BP 159/93
[2021-04-23] MEDS: morphine 10mg/0.5ml (conc. morphine) oral syringe PO PRN ×4 (01:46→20:50)
[2021-04-23 02:00] VITALS: BP 167/91
[2021-04-23 06:00] VITALS: BP 166/87
--- NOTE | 2021-04-23 06:10 | NUR ---
Patient in room ORTHO 4017. I have received report from MAURICE Jean-Baptiste and had the opportunity to ask questions and assume patient care.
[2021-04-23 06:14] LABS: APTT 24 SECONDS (22-32); D-DIMER 1.68 MG/L FEU (0-0.50)
[2021-04-23 06:20] LABS: BASOPHILS % (AUTO) 0 % (0-1); EOSINOPHILS % (AUTO) 0 % (0-6); HEMATOCRIT 34.2 % (35.0-45.0); HEMOGLOBIN 11.1 g/dl (12.0-16.0); LYMPHOCYTES # (AUTO) 0.6 X10'3 (1.1-4.8); LYMPHOCYTES % (AUTO) 3.6 % (21-51); MEAN CORPUSCULAR HEMOGLOBIN 26.6 PG (27.0-31.0); MEAN CORPUSCULAR HGB CONC 32.6 g/dL (33.0-36.5); MEAN CORPUSCULAR VOLUME 81.6 FL (78-98); MEAN PLATELET VOLUME 9.4 FL (7.4-10.4); NEUTROPHILS # (AUTO) 14.4 X10'3 (1.8-7.7); NEUTROPHILS % (AUTO) 90.4 % (42-75); PLATELET COUNT 276 X10'3 (140-440); RED BLOOD COUNT 4.19 X10'6 (4.20-5.60); RED CELL DISTRIBUTION WIDTH 19.7 % (11.5-14.5); WHITE BLOOD COUNT 15.9 X10'3 (4.5-11.0)
[2021-04-23 06:32] LABS: ALANINE AMINOTRANSFERASE 120 U/L (12-78); ALBUMIN 2.1 G/DL (3.4-5.0); ALBUMIN/GLOBULIN RATIO 0.4 (1.1-1.5); ALKALINE PHOSPHATASE 164 IU/L (46-116); ANION GAP 12 (8-16); ASPARTATE AMINO TRANSFERASE 143 U/L (10-37); BILIRUBIN,TOTAL 0.6 MG/DL (0.1-1.0); BLOOD UREA NITROGEN 44 MG/DL (7-18); BUN/CREATININE RATIO 27.5 (6.6-38.0); C-REACTIVE PROTEIN 6.37 MG/DL (0.0-0.5); CALCIUM 9.1 MG/DL (8.5-10.1); CHLORIDE 110 MMOL/L (99-107); GLUCOSE 142 MG/DL (70-104); PHOSPHORUS 3.5 MG/DL (2.3-4.5); POTASSIUM 3.5 MMOL/L (3.5-5.1); SODIUM 150 MMOL/L (135-145); TOTAL PROTEIN 6.8 G/DL (6.4-8.2); eGFR 32 ML/MIN
[2021-04-23] MEDS: carVEDilol 3.125mg tablet PO SCH ×2 (07:02→20:50)
[2021-04-23] MEDS: levoTHYROXINE 112mcg tablet PO SCH (07:02)
[2021-04-23] MEDS: lactobacillus rhamnosus 10,000 MMU CELLS/CAPSULE PO SCH ×2 (07:02→20:50)
[2021-04-23] MEDS: dexamethasone inj 8 MG in normal saline 50ml IV soln 50 ML IV SCH ×2 (07:02→15:33)
[2021-04-23] MEDS: lisinopril 5mg tablet PO SCH (07:03)
[2021-04-23] MEDS: heparin, porcine 5000 units/ml vial SQ SCH ×2 (07:04→15:33)
--- NOTE | 2021-04-23 08:04 | NUR ---
Paged Dr. Keane about patient low 02's sats and about her having lasix last night ect. She ordered new chest -xray and abg analysis. She said what ever RT thinks for oxygenation we can order as for as c/pap, bi-pap if needed. Addendum: 04/23/21 at 0836 by Louisa Mon RN pagejitendra Keane about abg result.
[2021-04-23 08:29] LABS: ABG BASE EXCESS 1.8 mmol/L (-2.0-2.0); ABG HCO3 25.6 mmol/L (22.0-26.0); ABG OXYGEN SATURATION 81.2 % (94-97); ABG PCO2 (T) 37.4 mmHg (32.0-45.0); ALLEN'S TEST Modified; FCOHb 0.3 % (0.0-3.9); FLOW 15 L/min; FMetHb 0.2 % (0.0-1.5); FO2Hb 80.8 % (94-97); TOTAL HEMOGLOBIN 12.7 G/dl (12.0-16.0)
[2021-04-23] MEDS: lactose-reduced food (Ensure Enlive) - 237ml bottle PO SCH ×3 (08:51→18:03)
[2021-04-23] MEDS: pantoprazole 40MG/NS 100ML BAG 100 ML IV SCH (08:51)
[2021-04-23 09:26] LABS: ANISOCYTOSIS 2+; LARGE PLATELETS FEW; NUCLEATED RED BLOOD CELLS 1 /100WBC (0-0); PLATELET ESTIMATE NORMAL; POLYCHROMASIA 1+; TOTAL CELLS COUNTED 100
[2021-04-23 09:27] LABS: HYPERSEGMENTED NEUTROPHILS 2+
[2021-04-23] MEDS: piperacillin/tazo 3.375gm/50ml 50 ML IV SCH ×2 (09:41→15:55)
[2021-04-23 10:00] VITALS: BP 121/68
[2021-04-23 14:00] VITALS: BP 140/68
[2021-04-23 15:57] LABS: EOSINOPHILS % (AUTO) 0 % (0-6); LYMPHOCYTES # (AUTO) 0.5 X10'3 (1.1-4.8); MEAN CORPUSCULAR HEMOGLOBIN 26.3 PG (27.0-31.0); MEAN PLATELET VOLUME 9.6 FL (7.4-10.4); WHITE BLOOD COUNT 16.3 X10'3 (4.5-11.0)
[2021-04-23 15:59] LABS: BASOPHILS % (AUTO) 0.2 % (0-1); HEMATOCRIT 33.8 % (35.0-45.0); HEMOGLOBIN 10.9 g/dl (12.0-16.0); MEAN CORPUSCULAR HGB CONC 32.2 g/dL (33.0-36.5); MEAN CORPUSCULAR VOLUME 81.7 FL (78-98); MONOCYTES % (AUTO) 6.3 % (2-12); NEUTROPHILS # (AUTO) 14.7 X10'3 (1.8-7.7); NEUTROPHILS % (AUTO) 90.5 % (42-75); PLATELET COUNT 313 X10'3 (140-440); RED BLOOD COUNT 4.14 X10'6 (4.20-5.60); RED CELL DISTRIBUTION WIDTH 20.2 % (11.5-14.5)
[2021-04-23 16:11] LABS: ALANINE AMINOTRANSFERASE 120 U/L (12-78); ALBUMIN 2.1 G/DL (3.4-5.0); ALBUMIN/GLOBULIN RATIO 0.4 (1.1-1.5); ALKALINE PHOSPHATASE 195 IU/L (46-116); ANION GAP 14 (8-16); ASPARTATE AMINO TRANSFERASE 144 U/L (10-37); BILIRUBIN,TOTAL 0.5 MG/DL (0.1-1.0); BLOOD UREA NITROGEN 56 MG/DL (7-18); BUN/CREATININE RATIO 29.9 (6.6-38.0); CALCIUM 8.8 MG/DL (8.5-10.1); CHLORIDE 109 MMOL/L (99-107); CREATININE 1.87 MG/DL (0.40-0.90); GLUCOSE 202 MG/DL (70-104); POTASSIUM 3.3 MMOL/L (3.5-5.1); SODIUM 151 MMOL/L (135-145); TOTAL CARBON DIOXIDE 27.9 MMOL/L (24-32); TOTAL PROTEIN 6.8 G/DL (6.4-8.2); eGFR 26 ML/MIN
[2021-04-23 16:17] LABS: BILIRUBIN,DIRECT 0.2 MG/DL (0-0.3); CREATINE KINASE 373 U/L (26-192); MAGNESIUM 2.1 MG/DL (1.5-2.4); PHOSPHORUS 3.1 MG/DL (2.3-4.5)
--- NOTE | 2021-04-23 16:24 | NUR ---
Page Sent PAGER ID: [phone] MESSAGE: Chayo [phone] Re: Suri Mitchell [phone] pt's K+ came back slightly low at 3.3. May I order replacement protocol please? Thanks!
--- NOTE | 2021-04-23 18:10 | NUR ---
Problems reprioritized. Patient report given, questions answered & plan of care reviewed with MAURICE Goodwin.
[2021-04-23 18:30] VITALS: BP 166/78
[2021-04-23 21:51] LABS: NUCLEATED RED BLOOD CELLS 1 /100WBC (0-0); PLATELET ESTIMATE NORMAL; TOTAL CELLS COUNTED 100
[2021-04-23 21:52] LABS: ANISOCYTOSIS 3+; POLYCHROMASIA 1+
[2021-04-23 22:00] VITALS: BP 159/102
[2021-04-23 22:06] LABS: TARGET CELLS FEW
[2021-04-23 22:07] LABS: HYPERSEGMENTED NEUTROPHILS 1+; LARGE PLATELETS FEW
[2021-04-24] MEDS: heparin, porcine 5000 units/ml vial SQ SCH ×4 (00:08→23:02)
[2021-04-24] MEDS: dexamethasone inj 8 MG in normal saline 50ml IV soln 50 ML IV SCH ×4 (00:09→23:03)
[2021-04-24] MEDS: piperacillin/tazo 3.375gm/50ml 50 ML IV SCH ×4 (00:12→23:03)
[2021-04-24] MEDS: morphine 10mg/0.5ml (conc. morphine) oral syringe PO PRN ×5 (00:55→21:29)
[2021-04-24 02:00] VITALS: BP 172/97
[2021-04-24] MEDS: dextrose 5%-water 1,000 ML IV SCH ×2 (02:45→13:41)
[2021-04-24 06:35] LABS: BASOPHILS % (AUTO) 0.1 % (0-1); EOSINOPHILS % (AUTO) 0.1 % (0-6); HEMATOCRIT 26.3 % (35.0-45.0); HEMOGLOBIN 8.7 g/dl (12.0-16.0); LYMPHOCYTES # (AUTO) 0.8 X10'3 (1.1-4.8); LYMPHOCYTES % (AUTO) 3.9 % (21-51); MEAN CORPUSCULAR HEMOGLOBIN 26.8 PG (27.0-31.0); MEAN CORPUSCULAR VOLUME 81.2 FL (78-98); MEAN PLATELET VOLUME 9.5 FL (7.4-10.4); MONOCYTES # (AUTO) 0.7 X10'3 (0-0.9); MONOCYTES % (AUTO) 3.3 % (2-12); NEUTROPHILS # (AUTO) 18.7 X10'3 (1.8-7.7); NEUTROPHILS % (AUTO) 92.6 % (42-75); PLATELET COUNT 385 X10'3 (140-440); RED BLOOD COUNT 3.24 X10'6 (4.20-5.60); RED CELL DISTRIBUTION WIDTH 19.6 % (11.5-14.5); WHITE BLOOD COUNT 20.2 X10'3 (4.5-11.0)
--- NOTE | 2021-04-24 06:35 | NUR ---
Patient in room ORTHO 4017. I have received report from Christa RN and had the opportunity to ask questions and assume patient care.
[2021-04-24 06:36] VITALS: BP 175/98
[2021-04-24 06:46] LABS: APTT 24 SECONDS (22-32); D-DIMER 1.99 MG/L FEU (0-0.50)
--- NOTE | 2021-04-24 06:51 | NUR ---
PAGER ID: [phone] MESSAGE: [phone] [place], can i order potassium replacement for this patient? she was 3.3 yesterday and never replaced, thanks! john [phone]
[2021-04-24] MEDS ORDERED: magnesium 2GM in 50ml NS 50 ML IV PRN (06:55)
[2021-04-24] MEDS ORDERED: magnesium 4gm in 100ml NS 100 ML IV PRN (06:55)
[2021-04-24] MEDS ORDERED: magnesium Cl slow-release 64mg tablet PO PRN (06:55)
[2021-04-24] MEDS ORDERED: potassium Cl 20 mEq SR tablet PO PRN ×2 (06:55)
[2021-04-24 06:56] LABS: ALANINE AMINOTRANSFERASE 153 U/L (12-78); ALBUMIN 2.2 G/DL (3.4-5.0); ALBUMIN/GLOBULIN RATIO 0.4 (1.1-1.5); ALKALINE PHOSPHATASE 223 IU/L (46-116); ANION GAP 12 (8-16); ASPARTATE AMINO TRANSFERASE 158 U/L (10-37); BILIRUBIN,TOTAL 0.8 MG/DL (0.1-1.0); BLOOD UREA NITROGEN 64 MG/DL (7-18); BUN/CREATININE RATIO 35.8 (6.6-38.0); C-REACTIVE PROTEIN 4.04 MG/DL (0.0-0.5); CALCIUM 9.4 MG/DL (8.5-10.1); CHLORIDE 117 MMOL/L (99-107); CREATINE KINASE 301 U/L (26-192); CREATININE 1.79 MG/DL (0.40-0.90); GLUCOSE 182 MG/DL (70-104); LACTATE DEHYDROGENASE 845 U/L (81-234); MAGNESIUM 2.3 MG/DL (1.5-2.4); PHOSPHORUS 4.2 MG/DL (2.3-4.5); POTASSIUM 3.4 MMOL/L (3.5-5.1); TOTAL CARBON DIOXIDE 30.1 MMOL/L (24-32); TOTAL PROTEIN 7.1 G/DL (6.4-8.2); eGFR 28 ML/MIN
[2021-04-24 07:04] LABS: SODIUM 159 MMOL/L (135-145)
[2021-04-24] MEDS: carVEDilol 3.125mg tablet PO SCH ×2 (07:08→20:03)
[2021-04-24] MEDS: pantoprazole 40MG/NS 100ML BAG 100 ML IV SCH (07:08)
[2021-04-24] MEDS: furosemide 20 MG/2 ML vial IV SCH ×2 (07:08→20:03)
[2021-04-24] MEDS: lisinopril 5mg tablet PO SCH (07:09)
[2021-04-24] MEDS: lactobacillus rhamnosus 10,000 MMU CELLS/CAPSULE PO SCH ×2 (07:09→20:03)
[2021-04-24] MEDS: levoTHYROXINE 112mcg tablet PO SCH (07:09)
[2021-04-24 07:10] LABS: ANISOCYTOSIS 2+; HYPERSEGMENTED NEUTROPHILS 1+; NUCLEATED RED BLOOD CELLS 2 /100WBC (0-0); PLATELET ESTIMATE NORMAL; TOTAL CELLS COUNTED 100
[2021-04-24 07:11] LABS: SCHISTOCYTES FEW
--- NOTE | 2021-04-24 07:42 | NUR ---
TARA ID: [phone] MESSAGE: [phone], [place] critical sodium of 159, john [phone]
[2021-04-24] MEDS: potassium CL 10mEq/100ml bag 100 ML IV PRN ×4 (07:43→12:14)
[2021-04-24] MEDS: lactose-reduced food (Ensure Enlive) - 237ml bottle PO SCH ×3 (08:00→18:00)
[2021-04-24] MEDS: K and/or MAG REPLACEMENT MC SCH ×2 (08:00→19:05)
--- NOTE | 2021-04-24 09:24 | NUR ---
Removed patients restraints to change bedding, patient non-compliant with leaving CPAP on without restraints on. Re-applied.
--- NOTE | 2021-04-24 09:51 | NUR ---
PAGER ID: [phone] MESSAGE: [phone], [place] patient is very sick, on 100% cpap and is strict i&o and is incontinent and wont leave a wick in place. Skin is also red and broken down, can i put in a kruger please? thanks john [phone]
[2021-04-24 09:56] VITALS: BP 115/76
--- NOTE | 2021-04-24 10:46 | NUR ---
Talked to patients sister Mariposa about plan of care
--- NOTE | 2021-04-24 11:09 | NUR ---
PAGER ID: [phone] MESSAGE: [phone], [place], patient is painful while urinating and is going little bits at a time, can i get a UA please considering WBC and neutrophils are both up today and she is altered. thank you. john [phone]
--- NOTE | 2021-04-24 11:09 | NUR ---
Patient is very restless, will not leave a wicc in place, betty skin is extremely reddened and painful looking. Paged MD regard critical sodium this morning with no response, paged to ask for kruger cath to protect skin as it is excoriated, no response. Paged again to ask for UA considering patients altered mental status, frequent little bits of urination and pain while she is urinating, no response.
[2021-04-24] MEDS ORDERED: LIDOcaine 2% 10ml TOPICAL JELLY (Urojet) TP ONE (11:25)
[2021-04-24 11:48] LABS: CLARITY,URINE CLEAR (Clear); GLUCOSE, URINE NEGATIVE (Neg); KETONES,URINE NEGATIVE (Neg); LEUKOCYTE ESTERASE ,URINE NEGATIVE (Neg); NITRITES, URINE NEGATIVE (Neg); OCCULT BLOOD,URINE TRACE-LYSED (Neg); PROTEIN,URINE NEGATIVE (Neg); UROBILINOGEN,URINE 0.2 E.U/dL (0.2-1.0)
[2021-04-24 11:57] LABS: ABG BASE EXCESS 1.5 mmol/L (-2.0-2.0); ABG HCO3 25.2 mmol/L (22.0-26.0); ABG OXYGEN SATURATION 90.7 % (94-97); ABG PCO2 (T) 36.3 mmHg (32.0-45.0); ABG PO2 (T) 62.2 mmHg (75.0-100.0); ALLEN'S TEST Modified; FCOHb 0.3 % (0.0-3.9); FMetHb 0.1 % (0.0-1.5); FO2Hb 90.3 % (94-97); TOTAL HEMOGLOBIN 11.5 G/dl (12.0-16.0)
--- NOTE | 2021-04-24 12:04 | NUR ---
Wynn catheter placed, patient was urinating just prior to it being placed and had 1100 out once placed. ABG done and looks OK, vascular paged for bilateral arterial ultrasound of the lower extremity. MD present at bedside and addressed all concerns
[2021-04-24 12:12] LABS: COLOR,URINE YELLOW (Yellow); UA COLLECTION TYPE FOLEY CATH
[2021-04-24 12:14] LABS: BACTERIA,URINE NONE SEEN /HPF (Neg); MUCUS STRANDS NONE SEEN /LPF (Neg); RBC,URINE 0-2 /HPF (0-2); SQUAMOUS EPITHELIAL CELL,UR NONE SEEN /LPF (FEW); WBC,URINE 0-4 /HPF (0-4)
--- NOTE | 2021-04-24 12:26 | NUR ---
Provided patient with a fan for comfort.
--- NOTE | 2021-04-24 12:27 | NUR ---
Medicated patient with oral morphine for air hunger.
--- NOTE | 2021-04-24 12:30 | NUR ---
PAGER ID: [phone] MESSAGE: [phone] [place], call me i want to talk to you about something to do with this patient, thanks! john [phone]
--- NOTE | 2021-04-24 12:50 | NUR ---
Spoke with daughter Livier and updated on plan of care.
--- NOTE | 2021-04-24 13:09 | NUR ---
relieving RN for lunch, pt is resting quietly on bed, softly moaning, tolerating bipap well,
--- NOTE | 2021-04-24 13:44 | NUR ---
Patient is very restless, discussed concerns of diabetes insipidus with hospitalist given patients pituitary history. She has been more restless throughout the shift and now is mumbling incomprehensible words over the CPAP. All VSS at this time. Restraints and sitter present.
--- NOTE | 2021-04-24 13:44 | NUR ---
Ultrasound present at bedside
--- NOTE | 2021-04-24 13:59 | NUR ---
PAGER ID: [phone] MESSAGE: [phone] [place], data warehousing manager called, picc line was placed yesterday she isn't taking in any nutrition. Do you want to do TPN? Catrina [phone]
--- NOTE | 2021-04-24 14:17 | NUR ---
Reassessment: Pt respiratory status has declined, now on 100% CPAP per EMR, pt getting very restless and agitated. RN states that pt is not very safe to swallow at this time given respiratory status, recommending NPO at this time though pt did consume 100% of ONS TID 04/23 per documentation. Pt would likely not tolerate feeding tube placement and currently w/ a PICC, may need TPN at this time to meet nutrient needs, d/w RN. Currently receiving D5 at 100ml/hr providing 408kcals/day LBM 04/24. Will continue to monitor. Recs: 1. IF TPN, Continuous TPN using 2:1 Clinimix non-E 5/20 at 70ml/hr goal w/ additional 100ml 20% ILE to run at 8.33ml/hr for 12hr/day. To provide 1780ml volume 1573kcals,78g AA, 312g Dextrose (2.87mg/kg/min GIR) 2. IF safe for PO, Recommend Regular diet 3. IF safe for PO, Ensure Enlive TID 4. Bowel care per rx, consider anti-diarrheal if diarrhea persists 5. Scaled wt this admit, subsequent weekly wts Addendum: 04/24/21 at [address] Amended: Links added.
--- NOTE | 2021-04-24 14:18 | NUR ---
Per MD no TPN to be started at this time as patient is fluid overloaded and we do not want to give her more fluids at this time.
[2021-04-24 14:46] VITALS: BP 163/93
[2021-04-24 18:00] VITALS: BP 151/86
--- NOTE | 2021-04-24 18:27 | NUR ---
Problems reprioritized. Patient report given, questions answered & plan of care reviewed with Angelina RICHARDS.
[2021-04-24 21:55] LABS: ALBUMIN 2.3 G/DL (3.4-5.0); ANION GAP 13 (8-16); BLOOD UREA NITROGEN 66 MG/DL (7-18); BUN/CREATININE RATIO 36.3 (6.6-38.0); CHLORIDE 116 MMOL/L (99-107); CREATININE 1.82 MG/DL (0.40-0.90); GLUCOSE 242 MG/DL (70-104); POTASSIUM 3.3 MMOL/L (3.5-5.1); TOTAL CARBON DIOXIDE 31.3 MMOL/L (24-32); eGFR 27 ML/MIN
[2021-04-24 22:00] VITALS: BP 135/63
[2021-04-24 22:09] LABS: SODIUM 160 MMOL/L (135-145)
--- NOTE | 2021-04-24 22:09 | NUR ---
Received Critical lab value Sodium of 160. Page to MD Richmond.
--- NOTE | 2021-04-24 22:45 | NUR ---
2nd Page sent regarding critical lab value for sodium 160. Call back received from MD Richmond stating she will take a look at the patient. No new orders.
[2021-04-24] MEDS ORDERED: sodium chloride 0.45% 1,000 ML IV SCH (22:50)
[2021-04-25] VITALS (28 sets, daily range): BP systolic 76–174; BP diastolic 44–85
[2021-04-25] MEDS: potassium CL 10mEq/100ml bag 100 ML IV PRN ×2 (00:44→01:59)
[2021-04-25] MEDS: morphine 10mg/0.5ml (conc. morphine) oral syringe PO PRN (01:59)
--- NOTE | 2021-04-25 02:27 | NUR ---
Page to MD Richmond regarding patient decrease in 02 Stat. Patient trending in low 80's. RT was at bedside recommending possible ativan dose. Cpap settings changed on pressure to 15. MD not agreeable to new medication order at this time. MD Richmond asked to keep monitoring and if possible to update family on patient current condition. And to pass family contact information to her.
--- NOTE | 2021-04-25 02:50 | NUR ---
Pt daughter Livier was called with update on patient current condition. Daughter Livier did indicate that patient is still to be a full code with intubation if needed as her and her aunt feel this is what the patient would want.
--- NOTE | 2021-04-25 03:12 | NUR ---
MD Richmond was at bedside to assess patient decline in condition. New orders received for Stat ABG and Chest x-ray. Orders placed and page sent to corresponding departments. Daughter Livier updated on new orders received.
[2021-04-25 03:38] LABS: ABG BASE EXCESS 0.2 mmol/L (-2.0-2.0); ABG HCO3 23.9 mmol/L (22.0-26.0); ABG PCO2 (T) 34.5 mmHg (32.0-45.0); ABG PO2 (T) 48.3 mmHg (75.0-100.0); ALLEN'S TEST POSITIVE; FCOHb 0.3 % (0.0-3.9); FMetHb 0.2 % (0.0-1.5); FO2Hb 82.6 % (94-97); PATIENT TEMPERATURE 36.2; TOTAL HEMOGLOBIN 11.9 G/dl (12.0-16.0)
[2021-04-25] MEDS ORDERED: albuterol 2.5 MG/3 ML nebule CONTNEB PRN (03:55)
--- NOTE | 2021-04-25 03:56 | NUR ---
Dr. Richmond called to inform nursing Dr. Valenzuela is to eval pt via video with Rn Anahy. They are all aware of pts condition Abg chest xray along with mail handlers supervisor per Dr. Richmond.
--- NOTE | 2021-04-25 04:37 | NUR ---
Patient has been transferred with all belongings to room 2013 per MD order for critical monitoring r/t decline in patient 02 stat and responsiveness. Bedside report was given to Anahy RICHARDSprofessional architect nurse. All important POC updates were communicated with all questions and concerns addressed at that time with Anahy RICHARDS. Call was made to patient's daughter Livier ([phone]) to update her on the room transfer of the patient and her current condition. All of Livier's questions and concerns were addressed.
[2021-04-25] MEDS ORDERED: naloxone 0.4 mg/ml inj ONE (04:51)
[2021-04-25] MEDS ORDERED: etomidate 2mg/ml inj. IV ONE (05:03)
[2021-04-25] MEDS ORDERED: rocuronium 10mg/ml inj IV ONE (05:05)
[2021-04-25] MEDS ORDERED: vancomycin/NS 1 GM ADD-VANTAGE 250 ML IV ONE (05:20)
[2021-04-25] MEDS ORDERED: FENTANYL-0.9 % NACL/PF 100 ML IV SCH (05:25)
[2021-04-25 05:28] LABS: ABG BASE EXCESS 3.3 mmol/L (-2.0-2.0); ABG HCO3 28.7 mmol/L (22.0-26.0); ABG OXYGEN SATURATION 88.1 % (94-97); ABG PCO2 (T) 47.2 mmHg (32.0-45.0); ABG PO2 (T) 61.9 mmHg (75.0-100.0); ALLEN'S TEST POSITIVE; FCOHb 0.3 % (0.0-3.9); FMetHb 0.3 % (0.0-1.5); FO2Hb 87.6 % (94-97); PATIENT TEMPERATURE 37.1; PEEP 14 cm H2O; RESPIRATORY RATE 22 b/min; TIDAL VOLUME 400 mL; TOTAL HEMOGLOBIN 11.6 G/dl (12.0-16.0)
[2021-04-25 06:04] LABS: APTT 30 SECONDS (22-32); LYMPHOCYTES # (AUTO) 0.4 X10'3 (1.1-4.8); MONOCYTES # (AUTO) 0.2 X10'3 (0-0.9)
[2021-04-25 06:05] LABS: BASOPHILS % (AUTO) 0.1 % (0-1); EOSINOPHILS % (AUTO) 0 % (0-6); HEMATOCRIT 33.8 % (35.0-45.0); HEMOGLOBIN 10.8 g/dl (12.0-16.0); LYMPHOCYTES % (AUTO) 3.2 % (21-51); MEAN CORPUSCULAR HGB CONC 32.1 g/dL (33.0-36.5); MEAN PLATELET VOLUME 9.3 FL (7.4-10.4); MONOCYTES % (AUTO) 1.3 % (2-12); NEUTROPHILS # (AUTO) 13.1 X10'3 (1.8-7.7); NEUTROPHILS % (AUTO) 95.4 % (42-75); PLATELET COUNT 322 X10'3 (140-440); RED BLOOD COUNT 4.02 X10'6 (4.20-5.60); RED CELL DISTRIBUTION WIDTH 19.7 % (11.5-14.5); WHITE BLOOD COUNT 13.8 X10'3 (4.5-11.0)
[2021-04-25 06:12] LABS: ALANINE AMINOTRANSFERASE 160 U/L (12-78); ALBUMIN 2.2 G/DL (3.4-5.0); ALBUMIN/GLOBULIN RATIO 0.5 (1.1-1.5); ALKALINE PHOSPHATASE 240 IU/L (46-116); ANION GAP 13 (8-16); ASPARTATE AMINO TRANSFERASE 149 U/L (10-37); BILIRUBIN,TOTAL 0.7 MG/DL (0.1-1.0); BLOOD UREA NITROGEN 65 MG/DL (7-18); BUN/CREATININE RATIO 36.3 (6.6-38.0); C-REACTIVE PROTEIN 7.14 MG/DL (0.0-0.5); CALCIUM 8.9 MG/DL (8.5-10.1); CHLORIDE 118 MMOL/L (99-107); CREATININE 1.79 MG/DL (0.40-0.90); GLUCOSE 202 MG/DL (70-104); MAGNESIUM 2.2 MG/DL (1.5-2.4); PHOSPHORUS 5.5 MG/DL (2.3-4.5); POTASSIUM 3.4 MMOL/L (3.5-5.1); TOTAL PROTEIN 6.9 G/DL (6.4-8.2); eGFR 28 ML/MIN
[2021-04-25 06:15] LABS: SODIUM 161 MMOL/L (135-145)
--- NOTE | 2021-04-25 06:30 | NUR ---
Patient in room CICU 2013. I have received report from Anahy RICHARDS and had the opportunity to ask questions and assume patient care.
--- NOTE | 2021-04-25 06:31 | NUR ---
Received report from MAURICE Alfaro; pt from ortho floor at 0415 for emergent intubation; to room 2013 w/belongings; pt unresponsive, sats in low 80s on bipap 100%; video conference done w/dr Linares; Dr. Moreno from ER here to intubate pt at 0506; intubated w/o problems, OG placed; initially BP low after intubation but now WNL, fentanyl gtt started; report given to MAURICE Domingo; questions answered.
[2021-04-25] MEDS: dextrose 5%-water 1,000 ML IV SCH (07:00)
[2021-04-25] MEDS: levoTHYROXINE 112mcg tablet PO SCH (08:00)
[2021-04-25] MEDS: K and/or MAG REPLACEMENT MC SCH ×2 (08:00→20:00)
[2021-04-25] MEDS: lactobacillus rhamnosus 10,000 MMU CELLS/CAPSULE PO SCH ×2 (08:03→21:12)
[2021-04-25] MEDS: dexamethasone inj 8 MG in normal saline 50ml IV soln 50 ML IV SCH (08:03)
[2021-04-25] MEDS: heparin, porcine 5000 units/ml vial SQ SCH (08:04)
[2021-04-25] MEDS: pantoprazole 40MG/NS 100ML BAG 100 ML IV SCH (09:23)
[2021-04-25 10:06] LABS: ANISOCYTOSIS 2+; NUCLEATED RED BLOOD CELLS 2 /100WBC (0-0); PLATELET ESTIMATE NORMAL; POLYCHROMASIA FEW; TOTAL CELLS COUNTED 100
[2021-04-25] MEDS: piperacillin/tazo 3.375gm/50ml 50 ML IV SCH ×3 (10:08→23:56)
[2021-04-25] MEDS ORDERED: midazolam 100mg in NS 100ml 100 ML IV PRN (10:30)
[2021-04-25] MEDS ORDERED: POTASSIUM BICARB 20meq eff tab 20 MEQ TABLET.EFF OGT PRN (10:45)
[2021-04-25] MEDS ORDERED: FENTANYL CITRATE/D5W/PF 100 ML IV SCH (10:55)
[2021-04-25 10:59] LABS: HBSAG SCREEN Negative (Negative); HEP A AB, IGM Negative (Negative); HEPATITIS C ANTIBODY <0.1 s/co ratio (0.0-0.9)
--- NOTE | 2021-04-25 11:05 | NUR ---
TF consult: Per face and fill packer pt with decreased responsiveness with declined O2 sat. Pt transferred to critical care and intubated at this time. Pt documented with an OGT in place, to begin TF per MD, see recommendations below. LBM 04/24. Will continue to follow closely. Recommendations: 1) Continuous TF via OGT using Vital AF with 65 mL/hr goal. To provide 1560 mL total volume/day, 1872 kcal, 117 g protein, and 1265 mL water 2) Monitor for scaled weight and adjust TF recs as appropriate 3) Additional 300 mL water flush Q4H; monitor serum Na and need to adjust 4) Prealbumin q Thursday/ 5) Daily scaled weights Addendum: 04/25/21 at [address] Amended: Links added.
[2021-04-25 11:35] LABS: CLARITY,URINE CLOUDY (Clear); COLOR,URINE YELLOW (Yellow); GLUCOSE, URINE NEGATIVE (Neg); KETONES,URINE NEGATIVE (Neg); LEUKOCYTE ESTERASE ,URINE NEGATIVE (Neg); NITRITES, URINE NEGATIVE (Neg); OCCULT BLOOD,URINE LARGE (Neg); PROTEIN,URINE TRACE mg/dl (Neg); UROBILINOGEN,URINE 0.2 E.U/dL (0.2-1.0)
[2021-04-25 11:36] LABS: EOSINOPHILS % (AUTO) 0.1 % (0-6); MONOCYTES # (AUTO) 0.2 X10'3 (0-0.9); MONOCYTES % (AUTO) 1.1 % (2-12)
[2021-04-25 11:38] LABS: BASOPHILS % (AUTO) 0.1 % (0-1); HEMATOCRIT 31.7 % (35.0-45.0); HEMOGLOBIN 10.2 g/dl (12.0-16.0); LYMPHOCYTES # (AUTO) 0.6 X10'3 (1.1-4.8); LYMPHOCYTES % (AUTO) 3.5 % (21-51); MEAN CORPUSCULAR HEMOGLOBIN 26.5 PG (27.0-31.0); MEAN CORPUSCULAR HGB CONC 32.2 g/dL (33.0-36.5); MEAN CORPUSCULAR VOLUME 82.4 FL (78-98); MEAN PLATELET VOLUME 9.3 FL (7.4-10.4); NEUTROPHILS # (AUTO) 15.5 X10'3 (1.8-7.7); NEUTROPHILS % (AUTO) 95.2 % (42-75); PLATELET COUNT 325 X10'3 (140-440); RED BLOOD COUNT 3.85 X10'6 (4.20-5.60); RED CELL DISTRIBUTION WIDTH 20.1 % (11.5-14.5); WHITE BLOOD COUNT 16.3 X10'3 (4.5-11.0)
[2021-04-25 11:48] LABS: ANION GAP 13 (8-16); BLOOD UREA NITROGEN 69 MG/DL (7-18); BUN/CREATININE RATIO 38.3 (6.6-38.0); CALCIUM 8.4 MG/DL (8.5-10.1); CHLORIDE 119 MMOL/L (99-107); GLUCOSE 197 MG/DL (70-104); POTASSIUM 3.6 MMOL/L (3.5-5.1); PREALBUMIN 16.5 MG/DL (19-36); TOTAL CARBON DIOXIDE 28.4 MMOL/L (24-32); eGFR 28 ML/MIN
[2021-04-25] MEDS: MIDAZolam inj 100 MG in dextrose 5%-water 80 ML IV PRN (11:52)
[2021-04-25] MEDS: fentaNYL/PF inj 1,000 MCG in dextrose 5%-water 80 ML IV SCH (11:52)
[2021-04-25 11:58] LABS: SODIUM 160 MMOL/L (135-145)
[2021-04-25 12:09] LABS: UA COLLECTION TYPE FOLEY CATH
[2021-04-25 12:11] LABS: BACTERIA,URINE 1+ /HPF (Neg); MUCUS STRANDS FEW /LPF (Neg); SQUAMOUS EPITHELIAL CELL,UR FEW /LPF (FEW); WBC,URINE 0-4 /HPF (0-4)
[2021-04-25] MEDS ORDERED: heparin 10,000 units/1 ML INJ IV ONE ×3 (12:45)
[2021-04-25] MEDS ORDERED: heparin 10,000 units/1 ML INJ IV PRN ×3 (12:45)
[2021-04-25] MEDS ORDERED: heparin 25,000 UNIT/250ml bag 250 ML IV SCH ×2 (12:45)
[2021-04-25] MEDS: heparin 25,000 UNIT/250ml bag 250 ML IV SCH (14:00)
[2021-04-25] MEDS ORDERED: glucagon, human recombinant 1mg kit SUBCUT PRN (14:20)
[2021-04-25] MEDS ORDERED: dextrose 50%-water 50ml dispensing syringe IV PRN (14:20)
[2021-04-25] MEDS ORDERED: ringers solution, lacted 1,000 ML IV ONE (14:35)
[2021-04-25] MEDS: insulin regular, human U-100 3ml vial - multi-dose SQ SCH ×2 (14:53→21:34)
[2021-04-25] MEDS ORDERED: dexamethasone inj 8 MG in dextrose 5%-water 100 ML IV SCH (16:00)
--- NOTE | 2021-04-25 18:17 | NUR ---
Problems reprioritized. Patient report given, questions answered & plan of care reviewed with Jen RICHARDS.
--- NOTE | 2021-04-25 18:30 | NUR ---
Patient in room [facility] 2013. I have received report from Chayo RICHARDS and had the opportunity to ask questions and assume patient care. Addendum: 04/25/21 at 1906 by Jen Sheriff RN Amended: Links added.
--- NOTE | 2021-04-25 19:21 | NUR ---
Patient now intubated. Corners of mouth padded with non sterile 4x4s to protect from pressure from ET tube mosqueda. Addendum: 04/25/21 at 1923 by Jen Sheriff RN Amended: Links added.
[2021-04-25] MEDS ORDERED: NORepinephrine 8mg/ 250ml NS 250 ML IV ONE (19:50)
[2021-04-25] MEDS ORDERED: NORepinephrine 8mg/ 250ml NS 250 ML IV PRN (20:45)
[2021-04-25 20:58] LABS: ALBUMIN 1.7 G/DL (3.4-5.0); ANION GAP 14 (8-16); BLOOD UREA NITROGEN 66 MG/DL (7-18); BUN/CREATININE RATIO 32.7 (6.6-38.0); CALCIUM 7.8 MG/DL (8.5-10.1); CHLORIDE 116 MMOL/L (99-107); CREATININE 2.02 MG/DL (0.40-0.90); GLUCOSE 238 MG/DL (70-104); POTASSIUM 3.6 MMOL/L (3.5-5.1); TOTAL CARBON DIOXIDE 26.1 MMOL/L (24-32); eGFR 24 ML/MIN
[2021-04-25 21:06] LABS: SODIUM 156 MMOL/L (135-145)
[2021-04-25] MEDS: NOREPINEPHRINE BITARTRATE/D5W 250 ML IV PRN (21:13)
[2021-04-25] MEDS: insulin glargine (Lantus) pen - multi-dose SQ SCH (21:35)
--- NOTE | 2021-04-25 22:43 | NUR ---
Dr. Valenzuela notified of patient's intermittent bradycardia. EKG obtained. See chart for strips and EKG. BP maintained on Levophed at 0.1mcg. No new orders at this time.
[2021-04-25] MEDS: methylPREDNISolone sod succ 125mg/2ml vial IV SCH (23:56)
[2021-04-26] VITALS (24 sets, daily range): BP systolic 90–131; BP diastolic 46–78
[2021-04-26] MEDS: dextrose 5%-water 1,000 ML IV SCH ×2 (01:30→04:45)
[2021-04-26] MEDS: insulin regular, human U-100 3ml vial - multi-dose SQ SCH ×4 (02:35→20:31)
[2021-04-26 02:52] LABS: EOSINOPHILS % (AUTO) 0.1 % (0-6); HEMOGLOBIN 8.9 g/dl (12.0-16.0); MONOCYTES # (AUTO) 0.1 X10'3 (0-0.9)
[2021-04-26 02:54] LABS: BASOPHILS % (AUTO) 0 % (0-1); HEMATOCRIT 27.6 % (35.0-45.0); LYMPHOCYTES # (AUTO) 0.4 X10'3 (1.1-4.8); MEAN CORPUSCULAR HGB CONC 32.3 g/dL (33.0-36.5); MEAN CORPUSCULAR VOLUME 83.7 FL (78-98); MEAN PLATELET VOLUME 9.2 FL (7.4-10.4); MONOCYTES % (AUTO) 0.8 % (2-12); NEUTROPHILS % (AUTO) 96.1 % (42-75); PLATELET COUNT 302 X10'3 (140-440); WHITE BLOOD COUNT 14.6 X10'3 (4.5-11.0)
[2021-04-26 03:14] LABS: ABG BASE EXCESS -0.1 mmol/L (-2.0-2.0); ABG HCO3 24.9 mmol/L (22.0-26.0); ABG OXYGEN SATURATION 88.9 % (94-97); ABG PCO2 (T) 39.3 mmHg (32.0-45.0); ABG PO2 (T) 56.7 mmHg (75.0-100.0); ALLEN'S TEST POSITIVE; FCOHb 0.3 % (0.0-3.9); FMetHb 0.3 % (0.0-1.5); FO2Hb 88.4 % (94-97); PATIENT TEMPERATURE 35.5; PEEP 14 cm H2O; RESPIRATORY RATE 26 b/min; TIDAL VOLUME 350 mL; TOTAL HEMOGLOBIN 9.8 G/dl (12.0-16.0)
[2021-04-26 03:18] LABS: D-DIMER 2.06 MG/L FEU (0-0.50)
[2021-04-26 03:20] LABS: ALANINE AMINOTRANSFERASE 121 U/L (12-78); ALBUMIN 1.8 G/DL (3.4-5.0); ALBUMIN/GLOBULIN RATIO 0.4 (1.1-1.5); ALKALINE PHOSPHATASE 179 IU/L (46-116); ANION GAP 12 (8-16); ASPARTATE AMINO TRANSFERASE 98 U/L (10-37); BILIRUBIN,TOTAL 0.6 MG/DL (0.1-1.0); BLOOD UREA NITROGEN 71 MG/DL (7-18); BUN/CREATININE RATIO 36.6 (6.6-38.0); C-REACTIVE PROTEIN 14.16 MG/DL (0.0-0.5); CALCIUM 7.9 MG/DL (8.5-10.1); CHLORIDE 112 MMOL/L (99-107); CREATININE 1.94 MG/DL (0.40-0.90); GLUCOSE 196 MG/DL (70-104); MAGNESIUM 2.2 MG/DL (1.5-2.4); PHOSPHORUS 5.6 MG/DL (2.3-4.5); POTASSIUM 3.3 MMOL/L (3.5-5.1); SODIUM 153 MMOL/L (135-145); TOTAL CARBON DIOXIDE 29.3 MMOL/L (24-32); TOTAL PROTEIN 6.2 G/DL (6.4-8.2); eGFR 25 ML/MIN
[2021-04-26 03:30] LABS: APTT 118 SECONDS (22-32)
[2021-04-26 04:07] LABS: ANISOCYTOSIS 2+; LARGE PLATELETS FEW; NUCLEATED RED BLOOD CELLS 2 /100WBC (0-0); PLATELET ESTIMATE NORMAL; TOTAL CELLS COUNTED 100
[2021-04-26 04:08] LABS: SCHISTOCYTES FEW
[2021-04-26 04:11] LABS: POLYCHROMASIA FEW
--- NOTE | 2021-04-26 04:37 | NUR ---
Updated Dr. Lewis on patient's current labs including K of 3.3 and AM ABG result during rounds. Orders to be placed by .
[2021-04-26] MEDS: potassium Cl 20mEq/100mL bag 100 ML IV PRN ×2 (05:52→08:26)
--- NOTE | 2021-04-26 06:00 | NUR ---
Patient in room CICU 2013. I have received report from Jen RICHARDS and had the opportunity to ask questions and assume patient care.
[2021-04-26] MEDS ORDERED: Potassium Cl inj 40 MEQ in sodium chloride 0.45% 500ml 500 ML IV ONE (06:05)
--- NOTE | 2021-04-26 06:17 | NUR ---
Problems reprioritized. Patient report given, questions answered & plan of care reviewed with Chayo RICHARDS.
[2021-04-26] MEDS: fentaNYL/PF inj 1,000 MCG in dextrose 5%-water 80 ML IV SCH ×2 (07:05→12:25)
[2021-04-26] MEDS: K and/or MAG REPLACEMENT MC SCH ×2 (08:00→18:15)
[2021-04-26] MEDS: lactobacillus rhamnosus 10,000 MMU CELLS/CAPSULE PO SCH ×2 (08:26→19:24)
[2021-04-26] MEDS: levoTHYROXINE 112mcg tablet PO SCH (08:26)
[2021-04-26] MEDS: methylPREDNISolone sod succ 125mg/2ml vial IV SCH ×3 (08:26→23:02)
[2021-04-26] MEDS: pantoprazole 40MG/NS 100ML BAG 100 ML IV SCH (08:26)
[2021-04-26] MEDS: heparin 25,000 UNIT/250ml bag 250 ML IV SCH (09:08)
[2021-04-26] MEDS: piperacillin/tazo 3.375gm/50ml 50 ML IV SCH ×2 (10:09→15:07)
[2021-04-26] MEDS: desmopressin 0.1mg/ml nasal spray 5ml btl NS SCH ×2 (10:20→19:24)
[2021-04-26] MEDS: MIDAZolam inj 100 MG in dextrose 5%-water 80 ML IV PRN (12:25)
--- NOTE | 2021-04-26 18:09 | NUR ---
Problems reprioritized. Patient report given, questions answered & plan of care reviewed with Juliane RICHARDS.
[2021-04-26] MEDS: insulin glargine (Lantus) pen - multi-dose SQ SCH (20:32)
[2021-04-26] MEDS: NOREPINEPHRINE BITARTRATE/D5W 250 ML IV PRN (21:52)
[2021-04-27] VITALS (27 sets, daily range): BP systolic 86–120; BP diastolic 44–70
[2021-04-27] MEDS: insulin regular, human U-100 3ml vial - multi-dose SQ SCH ×4 (02:41→21:39)
[2021-04-27 03:13] LABS: ABG BASE EXCESS -3.5 mmol/L (-2.0-2.0); ABG HCO3 22.3 mmol/L (22.0-26.0); ABG OXYGEN SATURATION 91.5 % (94-97); ABG PCO2 (T) 42.2 mmHg (32.0-45.0); ABG PO2 (T) 66.1 mmHg (75.0-100.0); ALLEN'S TEST POSITIVE; FCOHb 0.3 % (0.0-3.9); FMetHb 0.3 % (0.0-1.5); PATIENT TEMPERATURE 36.2; PEEP 14 cm H2O; RESPIRATORY RATE 26 b/min; TIDAL VOLUME 350 mL
[2021-04-27] MEDS: heparin 25,000 UNIT/250ml bag 250 ML IV SCH (03:13)
[2021-04-27 04:34] LABS: EOSINOPHILS % (AUTO) 0 % (0-6); MONOCYTES # (AUTO) 0.2 X10'3 (0-0.9); MONOCYTES % (AUTO) 1.5 % (2-12)
[2021-04-27 04:35] LABS: BASOPHILS % (AUTO) 0.2 % (0-1); LYMPHOCYTES # (AUTO) 0.4 X10'3 (1.1-4.8); LYMPHOCYTES % (AUTO) 2.7 % (21-51); MEAN CORPUSCULAR HEMOGLOBIN 27.9 PG (27.0-31.0); MEAN CORPUSCULAR HGB CONC 32.4 g/dL (33.0-36.5); MEAN PLATELET VOLUME 9.5 FL (7.4-10.4); NEUTROPHILS % (AUTO) 95.6 % (42-75); PLATELET COUNT 241 X10'3 (140-440); RED BLOOD COUNT 2.51 X10'6 (4.20-5.60); RED CELL DISTRIBUTION WIDTH 19.8 % (11.5-14.5); WHITE BLOOD COUNT 14.7 X10'3 (4.5-11.0)
[2021-04-27 04:45] LABS: APTT 61 SECONDS (22-32); D-DIMER 2.33 MG/L FEU (0-0.50)
[2021-04-27 04:56] LABS: HEMATOCRIT 21.6 % (35.0-45.0)
[2021-04-27 05:13] LABS: ALANINE AMINOTRANSFERASE 109 U/L (12-78); ALBUMIN 1.4 G/DL (3.4-5.0); ALBUMIN/GLOBULIN RATIO 0.3 (1.1-1.5); ALKALINE PHOSPHATASE 142 IU/L (46-116); ANION GAP 10 (8-16); ASPARTATE AMINO TRANSFERASE 101 U/L (10-37); BILIRUBIN,TOTAL 0.4 MG/DL (0.1-1.0); BLOOD UREA NITROGEN 88 MG/DL (7-18); BUN/CREATININE RATIO 37.4 (6.6-38.0); C-REACTIVE PROTEIN 8.94 MG/DL (0.0-0.5); CALCIUM 7.5 MG/DL (8.5-10.1); CHLORIDE 103 MMOL/L (99-107); CREATININE 2.35 MG/DL (0.40-0.90); GLUCOSE 129 MG/DL (70-104); MAGNESIUM 2.2 MG/DL (1.5-2.4); PHOSPHORUS 5.7 MG/DL (2.3-4.5); POTASSIUM 3.6 MMOL/L (3.5-5.1); SODIUM 139 MMOL/L (135-145); TOTAL CARBON DIOXIDE 25.9 MMOL/L (24-32); TOTAL PROTEIN 5.5 G/DL (6.4-8.2); eGFR 20 ML/MIN
[2021-04-27 05:45] LABS: ANISOCYTOSIS 2+; NUCLEATED RED BLOOD CELLS 1 /100WBC (0-0); PLATELET ESTIMATE NORMAL; TOTAL CELLS COUNTED 100
[2021-04-27] MEDS: levoTHYROXINE 112mcg tablet PO SCH (07:41)
[2021-04-27] MEDS: methylPREDNISolone sod succ 125mg/2ml vial IV SCH ×2 (07:41→15:29)
[2021-04-27] MEDS: lactobacillus rhamnosus 10,000 MMU CELLS/CAPSULE PO SCH ×2 (07:41→20:28)
[2021-04-27] MEDS: desmopressin 0.1mg/ml nasal spray 5ml btl NS SCH ×2 (07:42→20:28)
[2021-04-27] MEDS: K and/or MAG REPLACEMENT MC SCH ×2 (07:54→20:00)
[2021-04-27] MEDS ORDERED: pantoprazole 40MG/D5 100ML BAG 100 ML IV SCH (08:00)
[2021-04-27] MEDS: MIDAZolam inj 100 MG in dextrose 5%-water 80 ML IV PRN (08:21)
[2021-04-27] MEDS: fentaNYL/PF inj 1,000 MCG in dextrose 5%-water 80 ML IV SCH (09:35)
[2021-04-27 09:52] LABS: BASOPHILS % (AUTO) 0.1 % (0-1); EOSINOPHILS % (AUTO) 0 % (0-6); LYMPHOCYTES # (AUTO) 0.5 X10'3 (1.1-4.8)
[2021-04-27 09:54] LABS: LYMPHOCYTES % (AUTO) 3.4 % (21-51); MEAN CORPUSCULAR HEMOGLOBIN 28.1 PG (27.0-31.0); MEAN CORPUSCULAR HGB CONC 32.1 g/dL (33.0-36.5); MEAN CORPUSCULAR VOLUME 87.5 FL (78-98); MEAN PLATELET VOLUME 10.1 FL (7.4-10.4); MONOCYTES # (AUTO) 0.2 X10'3 (0-0.9); MONOCYTES % (AUTO) 1.2 % (2-12); NEUTROPHILS # (AUTO) 13.1 X10'3 (1.8-7.7); NEUTROPHILS % (AUTO) 95.3 % (42-75); PLATELET COUNT 221 X10'3 (140-440); RED BLOOD COUNT 2.21 X10'6 (4.20-5.60); RED CELL DISTRIBUTION WIDTH 19.7 % (11.5-14.5); WHITE BLOOD COUNT 13.8 X10'3 (4.5-11.0)
[2021-04-27 09:58] LABS: HEMATOCRIT 19.3 % (35.0-45.0); HEMOGLOBIN 6.2 g/dl (12.0-16.0)
--- NOTE | 2021-04-27 10:43 | NUR ---
Informed Dr. Zavaleta about critical H&H 6.06/08.3 and Na 139. ordered 1 unit of blood, occult stool, dc d5w, and urine Na and osmolality.
[2021-04-27 11:11] LABS: ANISOCYTOSIS 2+; NUCLEATED RED BLOOD CELLS 1 /100WBC (0-0); PLATELET ESTIMATE NORMAL; TOTAL CELLS COUNTED 100
[2021-04-27 11:13] LABS: HYPOCHROMASIA 1+; POLYCHROMASIA FEW
[2021-04-27 11:15] LABS: SCHISTOCYTES FEW
[2021-04-27 12:21] LABS: OSMOLALITY UA 340 MOSM/K (50-1400)
[2021-04-27 12:25] LABS: SODIUM,URINE RANDOM < 15 MEQ/L
[2021-04-27 12:26] LABS: OCCULT BLOOD STOOL POSITIVE (Neg)
--- NOTE | 2021-04-27 13:16 | NUR ---
Received TC regarding patient's water flushes and current serum Na of 139 MMOL/L. Pt currently receiving 300 mL water flush Q4H, d/w RN recommendation to decrease water flushes to 200 mL Q4H, EMR updated. Pt remains intubated and tolerating TF at goal rate with GRV WNL. LBM 04/26. Will continue to follow closely and make recommendations as appropriate. Recommendations: 1) Continuous TF via OGT using Vital AF with 65 mL/hr goal. To provide 1560 mL total volume/day, 1872 kcal, 117 g protein, and 1265 mL water 2) Monitor for scaled weight and adjust TF recs as appropriate 3) Additional 200 mL water flush Q4H; monitor serum Na and need to adjust 4) Prealbumin q Thursday/ 5) Daily scaled weights Addendum: 04/27/21 at [address] Amended: Links added.
[2021-04-27 13:34] LABS: ALBUMIN 1.4 G/DL (3.4-5.0); ANION GAP 10 (8-16); BILIRUBIN,TOTAL 0.4 MG/DL (0.1-1.0); BLOOD UREA NITROGEN 89 MG/DL (7-18); BUN/CREATININE RATIO 37.2 (6.6-38.0); CALCIUM 7.1 MG/DL (8.5-10.1); CHLORIDE 100 MMOL/L (99-107); CREATININE 2.39 MG/DL (0.40-0.90); GLUCOSE 191 MG/DL (70-104); POTASSIUM 3.6 MMOL/L (3.5-5.1); SODIUM 136 MMOL/L (135-145); TOTAL CARBON DIOXIDE 26.1 MMOL/L (24-32); TOTAL PROTEIN 5.4 G/DL (6.4-8.2); eGFR 20 ML/MIN
[2021-04-27 13:35] LABS: ALANINE AMINOTRANSFERASE 104 U/L (12-78); ALBUMIN/GLOBULIN RATIO 0.4 (1.1-1.5); ALKALINE PHOSPHATASE 133 IU/L (46-116); ASPARTATE AMINO TRANSFERASE 99 U/L (10-37)
--- NOTE | 2021-04-27 18:14 | NUR ---
Problems reprioritized. Patient report given, questions answered & plan of care reviewed with Brittanie RICHARDS.
--- NOTE | 2021-04-27 18:25 | NUR ---
Patient in room CICU 2013. I have received report from MAURICE Domingo and had the opportunity to ask questions and assume patient care.
[2021-04-27] MEDS: famotidine/PF 10 mg/ml inj IV SCH (20:28)
[2021-04-27] MEDS: insulin glargine (Lantus) pen - multi-dose SQ SCH (21:37)
[2021-04-28] VITALS (24 sets, daily range): BP systolic 90–111; BP diastolic 45–58
[2021-04-28] MEDS: methylPREDNISolone sod succ 125mg/2ml vial IV SCH ×3 (00:30→15:47)
[2021-04-28] MEDS: fentaNYL/PF inj 1,000 MCG in dextrose 5%-water 80 ML IV SCH (00:38)
[2021-04-28] MEDS: insulin regular, human U-100 3ml vial - multi-dose SQ SCH ×4 (02:23→20:38)
[2021-04-28 03:17] LABS: ABG BASE EXCESS -4.8 mmol/L (-2.0-2.0); ABG HCO3 21.5 mmol/L (22.0-26.0); ABG OXYGEN SATURATION 96.6 % (94-97); ABG PCO2 (T) 42.9 mmHg (32.0-45.0); ABG PO2 (T) 92.2 mmHg (75.0-100.0); ALLEN'S TEST POSITIVE; FCOHb 0.3 % (0.0-3.9); FMetHb 0.3 % (0.0-1.5); PATIENT TEMPERATURE 35.8; PEEP 14 cm H2O; RESPIRATORY RATE 26 b/min; TIDAL VOLUME 350 mL; TOTAL HEMOGLOBIN 8.7 G/dl (12.0-16.0)
[2021-04-28 03:21] LABS: APTT 59 SECONDS (22-32)
[2021-04-28] MEDS ORDERED: CALCIUM GLUC 1gm/50ml NACL,iso 50 ML IV ONE (04:10)
[2021-04-28] MEDS: potassium Cl 20mEq/100mL bag 100 ML IV PRN (04:27)
[2021-04-28 04:28] LABS: BASOPHILS % (AUTO) 0.1 % (0-1); EOSINOPHILS % (AUTO) 0 % (0-6); HEMOGLOBIN 7.6 g/dl (12.0-16.0); MEAN CORPUSCULAR HEMOGLOBIN 28.1 PG (27.0-31.0); MONOCYTES # (AUTO) 0.4 X10'3 (0-0.9); WHITE BLOOD COUNT 14.2 X10'3 (4.5-11.0)
[2021-04-28 04:29] LABS: HEMATOCRIT 22.8 % (35.0-45.0); LYMPHOCYTES # (AUTO) 0.3 X10'3 (1.1-4.8); LYMPHOCYTES % (AUTO) 2.4 % (21-51); MEAN CORPUSCULAR HGB CONC 33.3 g/dL (33.0-36.5); MEAN CORPUSCULAR VOLUME 84.6 FL (78-98); MEAN PLATELET VOLUME 9.4 FL (7.4-10.4); MONOCYTES % (AUTO) 2.8 % (2-12); NEUTROPHILS # (AUTO) 13.5 X10'3 (1.8-7.7); NEUTROPHILS % (AUTO) 94.7 % (42-75); PLATELET COUNT 219 X10'3 (140-440); RED CELL DISTRIBUTION WIDTH 19.4 % (11.5-14.5)
[2021-04-28 04:33] LABS: ALBUMIN 1.3 G/DL (3.4-5.0); ANION GAP 11 (8-16); BLOOD UREA NITROGEN 105 MG/DL (7-18); BUN/CREATININE RATIO 44.9 (6.6-38.0); CALCIUM 7.4 MG/DL (8.5-10.1); CHLORIDE 99 MMOL/L (99-107); CREATININE 2.34 MG/DL (0.40-0.90); GLUCOSE 143 MG/DL (70-104); POTASSIUM 4.1 MMOL/L (3.5-5.1); SODIUM 135 MMOL/L (135-145); TOTAL CARBON DIOXIDE 25.5 MMOL/L (24-32); eGFR 20 ML/MIN
[2021-04-28] MEDS: MIDAZolam inj 100 MG in dextrose 5%-water 80 ML IV PRN (04:37)
--- NOTE | 2021-04-28 06:18 | NUR ---
Problems reprioritized. Patient report given, questions answered & plan of care reviewed with MAURICE Lock.
[2021-04-28 07:23] LABS: ANISOCYTOSIS 2+; NUCLEATED RED BLOOD CELLS 3 /100WBC (0-0); PLATELET ESTIMATE NORMAL; ROULEAUX 1+; TOTAL CELLS COUNTED 100
[2021-04-28 07:24] LABS: HYPOCHROMASIA 1+; POIKILOCYTOSIS 1+; POLYCHROMASIA 2+
[2021-04-28] MEDS: desmopressin 0.1mg/ml nasal spray 5ml btl NS SCH ×2 (07:50→20:15)
[2021-04-28] MEDS: K and/or MAG REPLACEMENT MC SCH ×2 (07:51→20:00)
[2021-04-28] MEDS: levoTHYROXINE 112mcg tablet PO SCH (07:51)
[2021-04-28] MEDS: lactobacillus rhamnosus 10,000 MMU CELLS/CAPSULE PO SCH ×2 (07:51→20:13)
[2021-04-28] MEDS: famotidine/PF 10 mg/ml inj IV SCH ×2 (07:51→20:13)
[2021-04-28] MEDS: FENTANYL-0.9 % NACL/PF 100 ML IV SCH ×2 (17:03)
--- NOTE | 2021-04-28 18:10 | NUR ---
Patient in room CICU 2013. I have received report from MAURICE Lock and had the opportunity to ask questions and assume patient care.
[2021-04-28] MEDS: midazolam 100mg in NS 100ml 100 ML IV PRN (20:14)
[2021-04-28] MEDS: insulin glargine (Lantus) pen - multi-dose SQ SCH (20:37)
[2021-04-28] MEDS: NORepinephrine 8mg/ 250ml NS 250 ML IV PRN (22:02)
[2021-04-29] VITALS (24 sets, daily range): BP systolic 98–132; BP diastolic 48–69
[2021-04-29 04:06] LABS: BASOPHILS % (AUTO) 0.1 % (0-1); EOSINOPHILS % (AUTO) 0 % (0-6); HEMATOCRIT 24.3 % (35.0-45.0); HEMOGLOBIN 7.8 g/dl (12.0-16.0); LYMPHOCYTES # (AUTO) 0.3 X10'3 (1.1-4.8); LYMPHOCYTES % (AUTO) 1.8 % (21-51); MEAN CORPUSCULAR HEMOGLOBIN 27.8 PG (27.0-31.0); MEAN CORPUSCULAR HGB CONC 32.2 g/dL (33.0-36.5); MEAN CORPUSCULAR VOLUME 86.2 FL (78-98); MEAN PLATELET VOLUME 9.9 FL (7.4-10.4); MONOCYTES # (AUTO) 0.5 X10'3 (0-0.9); MONOCYTES % (AUTO) 3.7 % (2-12); NEUTROPHILS # (AUTO) 13.6 X10'3 (1.8-7.7); NEUTROPHILS % (AUTO) 94.4 % (42-75); PLATELET COUNT 238 X10'3 (140-440); RED BLOOD COUNT 2.82 X10'6 (4.20-5.60); RED CELL DISTRIBUTION WIDTH 19.8 % (11.5-14.5); WHITE BLOOD COUNT 14.4 X10'3 (4.5-11.0)
[2021-04-29] MEDS: insulin regular, human U-100 3ml vial - multi-dose SQ SCH ×3 (04:17→14:29)
[2021-04-29 04:28] LABS: ALANINE AMINOTRANSFERASE 106 U/L (12-78); ALBUMIN 1.3 G/DL (3.4-5.0); ALBUMIN/GLOBULIN RATIO 0.3 (1.1-1.5); ALKALINE PHOSPHATASE 139 IU/L (46-116); ANION GAP 8 (8-16); ASPARTATE AMINO TRANSFERASE 86 U/L (10-37); BILIRUBIN,TOTAL 0.3 MG/DL (0.1-1.0); BLOOD UREA NITROGEN 125 MG/DL (7-18); BUN/CREATININE RATIO 53.9 (6.6-38.0); CALCIUM 7.4 MG/DL (8.5-10.1); CHLORIDE 98 MMOL/L (99-107); CREATININE 2.32 MG/DL (0.40-0.90); GLUCOSE 191 MG/DL (70-104); MAGNESIUM 2.4 MG/DL (1.5-2.4); PHOSPHORUS 7.1 MG/DL (2.3-4.5); SODIUM 133 MMOL/L (135-145); TOTAL CARBON DIOXIDE 27.2 MMOL/L (24-32); TOTAL PROTEIN 5.9 G/DL (6.4-8.2); eGFR 21 ML/MIN
[2021-04-29 04:36] LABS: ABG BASE EXCESS -5.6 mmol/L (-2.0-2.0); ABG HCO3 21.7 mmol/L (22.0-26.0); ABG OXYGEN SATURATION 95.7 % (94-97); ABG PO2 (T) 83.5 mmHg (75.0-100.0); ALLEN'S TEST POSITIVE; FCOHb 0.3 % (0.0-3.9); FMetHb 0.3 % (0.0-1.5); FO2Hb 95.1 % (94-97); PATIENT TEMPERATURE 35.6; PEEP 14 cm H2O; RESPIRATORY RATE 26 b/min; TIDAL VOLUME 350 mL; TOTAL HEMOGLOBIN 8.7 G/dl (12.0-16.0)
[2021-04-29 04:43] LABS: ANISOCYTOSIS 2+; NUCLEATED RED BLOOD CELLS 2 /100WBC (0-0); PLATELET ESTIMATE NORMAL; TOTAL CELLS COUNTED 100
[2021-04-29 04:44] LABS: POLYCHROMASIA 1+
[2021-04-29 04:45] LABS: HYPOCHROMASIA 1+; LARGE PLATELETS FEW
[2021-04-29 04:53] LABS: APTT 24 SECONDS (22-32)
[2021-04-29] MEDS: FENTANYL-0.9 % NACL/PF 100 ML IV SCH ×2 (05:54→17:16)
[2021-04-29] MEDS: K and/or MAG REPLACEMENT MC SCH ×2 (07:03→18:21)
[2021-04-29] MEDS: lactobacillus rhamnosus 10,000 MMU CELLS/CAPSULE PO SCH ×2 (07:19→19:09)
[2021-04-29] MEDS: methylPREDNISolone sod succ 125mg/2ml vial IV SCH ×3 (07:19→16:06)
[2021-04-29] MEDS: levoTHYROXINE 112mcg tablet PO SCH (07:19)
[2021-04-29] MEDS: famotidine/PF 10 mg/ml inj IV SCH ×2 (07:19→19:08)
[2021-04-29] MEDS: desmopressin 0.1mg/ml nasal spray 5ml btl NS SCH ×2 (07:20→19:09)
[2021-04-29] MEDS: midazolam 100mg in NS 100ml 100 ML IV PRN (17:15)
[2021-04-29] MEDS: insulin glargine (Lantus) pen - multi-dose SQ SCH (21:22)
[2021-04-30] VITALS (25 sets, daily range): BP systolic 97–129; BP diastolic 46–69
[2021-04-30] MEDS: methylPREDNISolone sod succ 125mg/2ml vial IV SCH ×4 (01:00→23:14)
[2021-04-30 01:54] LABS: BASOPHILS % (AUTO) 0.2 % (0-1); EOSINOPHILS % (AUTO) 0 % (0-6); HEMATOCRIT 22.4 % (35.0-45.0); HEMOGLOBIN 7.4 g/dl (12.0-16.0); LYMPHOCYTES # (AUTO) 0.3 X10'3 (1.1-4.8); LYMPHOCYTES % (AUTO) 2.5 % (21-51); MEAN CORPUSCULAR HEMOGLOBIN 28.1 PG (27.0-31.0); MEAN CORPUSCULAR HGB CONC 32.9 g/dL (33.0-36.5); MEAN CORPUSCULAR VOLUME 85.6 FL (78-98); MEAN PLATELET VOLUME 9.7 FL (7.4-10.4); MONOCYTES # (AUTO) 0.6 X10'3 (0-0.9); MONOCYTES % (AUTO) 4.5 % (2-12); NEUTROPHILS # (AUTO) 11.3 X10'3 (1.8-7.7); NEUTROPHILS % (AUTO) 92.8 % (42-75); PLATELET COUNT 211 X10'3 (140-440); RED BLOOD COUNT 2.62 X10'6 (4.20-5.60); RED CELL DISTRIBUTION WIDTH 19.8 % (11.5-14.5); WHITE BLOOD COUNT 12.2 X10'3 (4.5-11.0)
[2021-04-30 02:07] LABS: APTT 22 SECONDS (22-32); D-DIMER 4.33 MG/L FEU (0-0.50)
[2021-04-30 02:18] LABS: ALANINE AMINOTRANSFERASE 85 U/L (12-78); ALBUMIN 1.4 G/DL (3.4-5.0); ALBUMIN/GLOBULIN RATIO 0.3 (1.1-1.5); ALKALINE PHOSPHATASE 136 IU/L (46-116); ANION GAP 12 (8-16); ASPARTATE AMINO TRANSFERASE 64 U/L (10-37); BILIRUBIN,TOTAL 0.3 MG/DL (0.1-1.0); BLOOD UREA NITROGEN 149 MG/DL (7-18); BUN/CREATININE RATIO 65.9 (6.6-38.0); C-REACTIVE PROTEIN 5.83 MG/DL (0.0-0.5); CALCIUM 7.5 MG/DL (8.5-10.1); CHLORIDE 96 MMOL/L (99-107); CREATININE 2.26 MG/DL (0.40-0.90); GLUCOSE 173 MG/DL (70-104); MAGNESIUM 2.4 MG/DL (1.5-2.4); PHOSPHORUS 6.5 MG/DL (2.3-4.5); POTASSIUM 5.4 MMOL/L (3.5-5.1); SODIUM 133 MMOL/L (135-145); TOTAL CARBON DIOXIDE 25.1 MMOL/L (24-32); TOTAL PROTEIN 5.6 G/DL (6.4-8.2); eGFR 21 ML/MIN
[2021-04-30 03:01] LABS: TOTAL CELLS COUNTED 100
[2021-04-30 03:02] LABS: NUCLEATED RED BLOOD CELLS 1 /100WBC (0-0)
[2021-04-30 03:03] LABS: ANISOCYTOSIS 2+; LARGE PLATELETS FEW; PLATELET ESTIMATE NORMAL
[2021-04-30 03:04] LABS: HYPOCHROMASIA 1+; POLYCHROMASIA 1+
[2021-04-30 03:37] LABS: ABG BASE EXCESS -2.4 mmol/L (-2.0-2.0); ABG HCO3 24.4 mmol/L (22.0-26.0); ABG OXYGEN SATURATION 93.4 % (94-97); ABG PCO2 (T) 51.3 mmHg (32.0-45.0); ABG PO2 (T) 73.8 mmHg (75.0-100.0); ALLEN'S TEST POSITIVE; FCOHb 0.3 % (0.0-3.9); FMetHb 0.1 % (0.0-1.5); PATIENT TEMPERATURE 36.5; PEEP 14 cm H2O; RESPIRATORY RATE 26 b/min; TIDAL VOLUME 350 mL; TOTAL HEMOGLOBIN 8.6 G/dl (12.0-16.0)
[2021-04-30] MEDS: NORepinephrine 8mg/ 250ml NS 250 ML IV PRN (05:20)
[2021-04-30] MEDS: K and/or MAG REPLACEMENT MC SCH ×2 (08:00→18:15)
[2021-04-30] MEDS: levoTHYROXINE 112mcg tablet PO SCH (08:00)
[2021-04-30] MEDS: desmopressin 0.1mg/ml nasal spray 5ml btl NS SCH (08:59)
[2021-04-30] MEDS: famotidine/PF 10 mg/ml inj IV SCH ×2 (09:00→18:58)
[2021-04-30] MEDS: enoxaparin 30mg/0.3ml syringe SUBCUT SCH (09:00)
[2021-04-30] MEDS: lactobacillus rhamnosus 10,000 MMU CELLS/CAPSULE PO SCH (09:00)
[2021-04-30] MEDS: FENTANYL-0.9 % NACL/PF 100 ML IV SCH (09:02)
[2021-04-30] MEDS: insulin regular, human U-100 3ml vial - multi-dose SQ SCH ×2 (10:12→13:51)
[2021-04-30] MEDS ORDERED: acetaminophen 325mg/10.15ml oral unit dose solution OGT PRN ×2 (11:00)
[2021-04-30] MEDS: calcium acetate 667mg (PhosLO) capsule OGT SCH ×4 (12:38→23:15)
[2021-04-30] MEDS: midazolam 100mg in NS 100ml 100 ML IV PRN (12:39)
--- NOTE | 2021-04-30 13:34 | NUR ---
Reassessment: Pt remains intubated and tolerating TF at goal rate with GRV WNL. Serum Na now low at 133 MMOL/L, water flushes decreased to 100 mL Q4H per MD and medications adjusted per MD. Serum K and Phos elevated today, though phos down from 04/29, no adjustments to TF warranted at this time as pt receiving an appropriate amount of electrolytes from TF and pt started on Phos binder today. LBM 04/29. Will continue to follow and make recommendations as appropriate. Recommendations: 1) Continuous TF via OGT using Vital AF with 65 mL/hr goal. To provide 1560 mL total volume/day, 1872 kcal, 117 g protein, and 1265 mL water 2) Monitor for scaled weight and adjust TF recs as appropriate 3) Additional 100 mL water flush Q4H per MD; monitor serum Na and need to adjust 4) Prealbumin q Thursday/ 5) Daily scaled weights Addendum: 04/30/21 at [address] Amended: Links added.
[2021-04-30] MEDS: lactobacillus rhamnosus 10,000 MMU CELLS/CAPSULE OGT SCH (18:58)
[2021-04-30] MEDS: insulin glargine (Lantus) pen - multi-dose SQ SCH (21:27)
[2021-05-01] VITALS (24 sets, daily range): BP systolic 100–137; BP diastolic 41–71
[2021-05-01] MEDS: FENTANYL-0.9 % NACL/PF 100 ML IV SCH ×3 (01:27→22:38)
[2021-05-01] MEDS: insulin regular, human U-100 3ml vial - multi-dose SQ SCH ×4 (01:57→21:29)
[2021-05-01 02:43] LABS: BASOPHILS % (AUTO) 0.1 % (0-1); EOSINOPHILS % (AUTO) 0 % (0-6); HEMATOCRIT 23.1 % (35.0-45.0); HEMOGLOBIN 7.4 g/dl (12.0-16.0); LYMPHOCYTES # (AUTO) 0.2 X10'3 (1.1-4.8); LYMPHOCYTES % (AUTO) 1.4 % (21-51); MEAN CORPUSCULAR HEMOGLOBIN 27.7 PG (27.0-31.0); MEAN CORPUSCULAR HGB CONC 32.1 g/dL (33.0-36.5); MEAN CORPUSCULAR VOLUME 86.4 FL (78-98); MEAN PLATELET VOLUME 9.7 FL (7.4-10.4); MONOCYTES # (AUTO) 0.7 X10'3 (0-0.9); MONOCYTES % (AUTO) 5.6 % (2-12); NEUTROPHILS # (AUTO) 11.4 X10'3 (1.8-7.7); NEUTROPHILS % (AUTO) 92.9 % (42-75); PLATELET COUNT 192 X10'3 (140-440); RED BLOOD COUNT 2.67 X10'6 (4.20-5.60); RED CELL DISTRIBUTION WIDTH 19.8 % (11.5-14.5); WHITE BLOOD COUNT 12.3 X10'3 (4.5-11.0)
[2021-05-01 03:01] LABS: APTT 23 SECONDS (22-32)
[2021-05-01 03:02] LABS: ALANINE AMINOTRANSFERASE 69 U/L (12-78); ALBUMIN 1.4 G/DL (3.4-5.0); ALBUMIN/GLOBULIN RATIO 0.3 (1.1-1.5); ALKALINE PHOSPHATASE 128 IU/L (46-116); ANION GAP 7 (8-16); ASPARTATE AMINO TRANSFERASE 54 U/L (10-37); BILIRUBIN,TOTAL 0.3 MG/DL (0.1-1.0); CALCIUM 7.9 MG/DL (8.5-10.1); CHLORIDE 100 MMOL/L (99-107); CREATININE 1.93 MG/DL (0.40-0.90); GLUCOSE 133 MG/DL (70-104); MAGNESIUM 2.4 MG/DL (1.5-2.4); PHOSPHORUS 6.2 MG/DL (2.3-4.5); POTASSIUM 5.9 MMOL/L (3.5-5.1); SODIUM 135 MMOL/L (135-145); TOTAL CARBON DIOXIDE 27.8 MMOL/L (24-32); TOTAL PROTEIN 5.9 G/DL (6.4-8.2); eGFR 25 ML/MIN
[2021-05-01 03:30] LABS: BLOOD UREA NITROGEN 151 MG/DL (7-18); BUN/CREATININE RATIO 78.2 (6.6-38.0)
[2021-05-01 03:41] LABS: ABG BASE EXCESS -2.1 mmol/L (-2.0-2.0); ABG HCO3 24.1 mmol/L (22.0-26.0); ABG OXYGEN SATURATION 93.2 % (94-97); ABG PCO2 (T) 47.3 mmHg (32.0-45.0); ABG PO2 (T) 72.6 mmHg (75.0-100.0); ALLEN'S TEST POSITIVE; FCOHb 0.3 % (0.0-3.9); FMetHb 0.1 % (0.0-1.5); FO2Hb 92.8 % (94-97); PATIENT TEMPERATURE 36.5; PEEP 14 cm H2O; RESPIRATORY RATE 28 b/min; TIDAL VOLUME 350 mL; TOTAL HEMOGLOBIN 8.3 G/dl (12.0-16.0)
[2021-05-01] MEDS: calcium acetate 667mg (PhosLO) capsule OGT SCH ×5 (04:09→20:42)
[2021-05-01 04:25] LABS: ANISOCYTOSIS 2+; PLATELET ESTIMATE NORMAL; TOTAL CELLS COUNTED 100
[2021-05-01 04:27] LABS: HYPOCHROMASIA 1+; NUCLEATED RED BLOOD CELLS 1 /100WBC (0-0); POLYCHROMASIA 1+
[2021-05-01 04:28] LABS: LARGE PLATELETS FEW; POIKILOCYTOSIS FEW
[2021-05-01] MEDS: methylPREDNISolone sod succ 125mg/2ml vial IV SCH ×3 (07:20→23:35)
[2021-05-01] MEDS: lactobacillus rhamnosus 10,000 MMU CELLS/CAPSULE OGT SCH ×2 (07:21→20:42)
[2021-05-01] MEDS: famotidine/PF 10 mg/ml inj IV SCH (07:21)
[2021-05-01] MEDS: levoTHYROXINE 112mcg tablet OGT SCH (07:22)
[2021-05-01] MEDS: K and/or MAG REPLACEMENT MC SCH ×2 (07:22→20:00)
[2021-05-01] MEDS: enoxaparin 30mg/0.3ml syringe SUBCUT SCH (08:16)
[2021-05-01] MEDS: midazolam 100mg in NS 100ml 100 ML IV PRN (08:17)
[2021-05-01] MEDS: pantoprazole 40MG/NS 100ML BAG 100 ML IV SCH ×6 (12:49→23:36)
[2021-05-01] MEDS: insulin glargine (Lantus) pen - multi-dose SQ SCH (21:29)
[2021-05-02] VITALS (24 sets, daily range): BP systolic 107–145; BP diastolic 46–69
[2021-05-02] MEDS: midazolam 100mg in NS 100ml 100 ML IV PRN ×2 (01:43→17:02)
[2021-05-02] MEDS: insulin regular, human U-100 3ml vial - multi-dose SQ SCH ×3 (02:57→14:52)
[2021-05-02 03:28] LABS: HEMOGLOBIN 8.7 g/dl (12.0-16.0); LYMPHOCYTES # (AUTO) 0.2 X10'3 (1.1-4.8)
[2021-05-02 03:29] LABS: ABG BASE EXCESS -0.3 mmol/L (-2.0-2.0); ABG HCO3 25.5 mmol/L (22.0-26.0); ABG OXYGEN SATURATION 90.6 % (94-97); ABG PO2 (T) 60.5 mmHg (75.0-100.0); ALLEN'S TEST POSITIVE; FMetHb 0.3 % (0.0-1.5); FO2Hb 90.3 % (94-97); PATIENT TEMPERATURE 35.8; PEEP 14 cm H2O; RESPIRATORY RATE 28 b/min; TIDAL VOLUME 350 mL; TOTAL HEMOGLOBIN 8.7 G/dl (12.0-16.0)
[2021-05-02 03:32] LABS: BASOPHILS % (AUTO) 0.1 % (0-1); EOSINOPHILS % (AUTO) 0 % (0-6); HEMATOCRIT 26.5 % (35.0-45.0); LYMPHOCYTES % (AUTO) 1.6 % (21-51); MEAN CORPUSCULAR HEMOGLOBIN 28.2 PG (27.0-31.0); MEAN CORPUSCULAR HGB CONC 32.8 g/dL (33.0-36.5); MEAN CORPUSCULAR VOLUME 86.1 FL (78-98); MEAN PLATELET VOLUME 9.6 FL (7.4-10.4); MONOCYTES # (AUTO) 0.8 X10'3 (0-0.9); MONOCYTES % (AUTO) 7.3 % (2-12); NEUTROPHILS # (AUTO) 10.1 X10'3 (1.8-7.7); PLATELET COUNT 205 X10'3 (140-440); RED BLOOD COUNT 3.08 X10'6 (4.20-5.60); RED CELL DISTRIBUTION WIDTH 21.3 % (11.5-14.5); WHITE BLOOD COUNT 11.1 X10'3 (4.5-11.0)
[2021-05-02 03:38] LABS: APTT 22 SECONDS (22-32)
[2021-05-02 03:49] LABS: ALANINE AMINOTRANSFERASE 70 U/L (12-78); ALBUMIN 1.6 G/DL (3.4-5.0); ALBUMIN/GLOBULIN RATIO 0.4 (1.1-1.5); ALKALINE PHOSPHATASE 138 IU/L (46-116); ANION GAP 10 (8-16); ASPARTATE AMINO TRANSFERASE 72 U/L (10-37); BILIRUBIN,TOTAL 0.3 MG/DL (0.1-1.0); BLOOD UREA NITROGEN 147 MG/DL (7-18); BUN/CREATININE RATIO 84.5 (6.6-38.0); CALCIUM 8.3 MG/DL (8.5-10.1); CHLORIDE 101 MMOL/L (99-107); CREATININE 1.74 MG/DL (0.40-0.90); GLUCOSE 146 MG/DL (70-104); MAGNESIUM 2.5 MG/DL (1.5-2.4); PHOSPHORUS 4.7 MG/DL (2.3-4.5); POTASSIUM 5.8 MMOL/L (3.5-5.1); SODIUM 138 MMOL/L (135-145); TOTAL CARBON DIOXIDE 27.2 MMOL/L (24-32); eGFR 29 ML/MIN
[2021-05-02] MEDS: calcium acetate 667mg (PhosLO) capsule OGT SCH ×6 (04:37→18:29)
[2021-05-02] MEDS: pantoprazole 40MG/NS 100ML BAG 100 ML IV SCH ×4 (04:37→20:48)
[2021-05-02 04:49] LABS: ANISOCYTOSIS 3+; PLATELET ESTIMATE NORMAL
[2021-05-02 04:50] LABS: HYPOCHROMASIA 1+; LARGE PLATELETS FEW; POLYCHROMASIA FEW
[2021-05-02 04:51] LABS: BURR CELLS FEW
[2021-05-02] MEDS: K and/or MAG REPLACEMENT MC SCH ×2 (08:00→18:30)
[2021-05-02] MEDS: levoTHYROXINE 112mcg tablet OGT SCH (08:46)
[2021-05-02] MEDS: methylPREDNISolone sod succ 125mg/2ml vial IV SCH ×2 (08:46→16:20)
[2021-05-02] MEDS: lactobacillus rhamnosus 10,000 MMU CELLS/CAPSULE OGT SCH ×2 (08:46→20:48)
[2021-05-02] MEDS: enoxaparin 30mg/0.3ml syringe SUBCUT SCH (08:47)
[2021-05-02] MEDS: FENTANYL-0.9 % NACL/PF 100 ML IV SCH ×2 (12:09→18:30)
[2021-05-02] MEDS: insulin glargine (Lantus) pen - multi-dose SQ SCH (21:09)
[2021-05-03] VITALS (23 sets, daily range): BP systolic 105–124; BP diastolic 47–55
[2021-05-03] MEDS: pantoprazole 40MG/NS 100ML BAG 100 ML IV SCH ×2 (00:32→19:19)
[2021-05-03] MEDS: methylPREDNISolone sod succ 125mg/2ml vial IV SCH ×3 (00:32→16:29)
[2021-05-03 03:03] LABS: ABG BASE EXCESS 4.1 mmol/L (-2.0-2.0); ABG HCO3 30.5 mmol/L (22.0-26.0); ABG OXYGEN SATURATION 91.1 % (94-97); ABG PCO2 (T) 54.8 mmHg (32.0-45.0); ABG PO2 (T) 64.4 mmHg (75.0-100.0); ALLEN'S TEST POSITIVE; FCOHb 0.3 % (0.0-3.9); FMetHb 0.3 % (0.0-1.5); FO2Hb 90.6 % (94-97); PATIENT TEMPERATURE 36.4; PEEP 14 cm H2O; RESPIRATORY RATE 28 b/min; TIDAL VOLUME 350 mL; TOTAL HEMOGLOBIN 8.5 G/dl (12.0-16.0)
[2021-05-03 04:06] LABS: BASOPHILS % (AUTO) 0.1 % (0-1); EOSINOPHILS % (AUTO) 0 % (0-6); HEMATOCRIT 22.9 % (35.0-45.0); HEMOGLOBIN 7.4 g/dl (12.0-16.0); LYMPHOCYTES # (AUTO) 0.4 X10'3 (1.1-4.8); LYMPHOCYTES % (AUTO) 3.9 % (21-51); MEAN CORPUSCULAR HEMOGLOBIN 28.3 PG (27.0-31.0); MEAN CORPUSCULAR HGB CONC 32.3 g/dL (33.0-36.5); MEAN CORPUSCULAR VOLUME 87.6 FL (78-98); MEAN PLATELET VOLUME 9.1 FL (7.4-10.4); MONOCYTES # (AUTO) 0.6 X10'3 (0-0.9); NEUTROPHILS # (AUTO) 9.3 X10'3 (1.8-7.7); PLATELET COUNT 236 X10'3 (140-440); RED BLOOD COUNT 2.61 X10'6 (4.20-5.60); RED CELL DISTRIBUTION WIDTH 21.4 % (11.5-14.5); WHITE BLOOD COUNT 10.3 X10'3 (4.5-11.0)
[2021-05-03 04:19] LABS: ALANINE AMINOTRANSFERASE 59 U/L (12-78); ALBUMIN 1.4 G/DL (3.4-5.0); ALBUMIN/GLOBULIN RATIO 0.3 (1.1-1.5); ALKALINE PHOSPHATASE 116 IU/L (46-116); ANION GAP 5 (8-16); ASPARTATE AMINO TRANSFERASE 54 U/L (10-37); BILIRUBIN,TOTAL 0.2 MG/DL (0.1-1.0); BLOOD UREA NITROGEN 127 MG/DL (7-18); BUN/CREATININE RATIO 84.1 (6.6-38.0); CALCIUM 8.1 MG/DL (8.5-10.1); CHLORIDE 112 MMOL/L (99-107); CREATININE 1.51 MG/DL (0.40-0.90); GLUCOSE 125 MG/DL (70-104); SODIUM 147 MMOL/L (135-145); TOTAL CARBON DIOXIDE 30.2 MMOL/L (24-32); TOTAL PROTEIN 5.7 G/DL (6.4-8.2); eGFR 34 ML/MIN
[2021-05-03 04:23] LABS: D-DIMER 4.58 MG/L FEU (0-0.50)
[2021-05-03 04:27] LABS: POTASSIUM 6.3 MMOL/L (3.5-5.1)
[2021-05-03] MEDS ORDERED: furosemide 20 MG/2 ML vial IV ONE (04:40)
[2021-05-03] MEDS: calcium acetate 667mg (PhosLO) capsule OGT SCH ×6 (04:48→19:19)
[2021-05-03] MEDS: midazolam 100mg in NS 100ml 100 ML IV PRN ×2 (07:00→21:57)
[2021-05-03] MEDS: enoxaparin 30mg/0.3ml syringe SUBCUT SCH (07:48)
[2021-05-03] MEDS: levoTHYROXINE 112mcg tablet OGT SCH (07:48)
[2021-05-03] MEDS: lactobacillus rhamnosus 10,000 MMU CELLS/CAPSULE OGT SCH ×2 (07:49→19:19)
[2021-05-03 08:40] LABS: ALBUMIN 1.6 G/DL (3.4-5.0); ANION GAP 8 (8-16); BLOOD UREA NITROGEN 125 MG/DL (7-18); BUN/CREATININE RATIO 78.1 (6.6-38.0); CALCIUM 7.7 MG/DL (8.5-10.1); CHLORIDE 112 MMOL/L (99-107); GLUCOSE 153 MG/DL (70-104); MAGNESIUM 2.4 MG/DL (1.5-2.4); PHOSPHORUS 5.7 MG/DL (2.3-4.5); SODIUM 148 MMOL/L (135-145); TOTAL CARBON DIOXIDE 28.5 MMOL/L (24-32); eGFR 32 ML/MIN
[2021-05-03 08:44] LABS: POTASSIUM 6.1 MMOL/L (3.5-5.1)
--- NOTE | 2021-05-03 11:13 | NUR ---
Reassessment: Pt remains intubated and tolerating TF at goal rate with GRV WNL. LBM 05/02, documented with diarrhea, currently not receiving any bowel care. No changes to nutrition interventions at this time. Will continue to follow. Recommendations: 1) Continuous TF via OGT using Vital AF with 65 mL/hr goal. To provide 1560 mL total volume/day, 1872 kcal, 117 g protein, and 1265 mL water 2) Monitor for scaled weight and adjust TF recs as appropriate 3) Additional 100 mL water flush Q4H per MD; monitor serum Na and need to adjust 4) Prealbumin q Thursday/ 5) Daily scaled weights Addendum: 05/03/21 at [address] Amended: Links added.
[2021-05-03] MEDS: FENTANYL-0.9 % NACL/PF 100 ML IV SCH ×2 (11:55→18:37)
[2021-05-03] MEDS: insulin regular, human U-100 3ml vial - multi-dose SQ SCH (14:30)
[2021-05-03] MEDS ORDERED: ipratropium/albuterol 3ml nebule NEB PRN (17:10)
[2021-05-03] MEDS ORDERED: midazolam 100mg in NS 100ml 100 ML IV PRN (17:10)
[2021-05-03] MEDS ORDERED: fentaNYL/PF 50MCG/1 ML 2ML syringe IV PRN (17:10)
[2021-05-03] MEDS ORDERED: midazolam 1 mg/ML 2ml injection IV ONE (17:10)
[2021-05-03] MEDS ORDERED: FENTANYL-0.9 % NACL/PF 100 ML IV PRN (17:10)
[2021-05-03] MEDS: furosemide 40mg/4ml inj IV SCH (19:19)
[2021-05-03] MEDS: ipratropium/albuterol 3ml nebule NEB SCH ×2 (19:28→23:44)
[2021-05-03] MEDS: insulin glargine (Lantus) pen - multi-dose SQ SCH (20:09)
[2021-05-04] VITALS (24 sets, daily range): BP systolic 107–139; BP diastolic 50–72
[2021-05-04 03:17] LABS: BASOPHILS % (AUTO) 0 % (0-1); EOSINOPHILS % (AUTO) 0 % (0-6); HEMATOCRIT 23.1 % (35.0-45.0); HEMOGLOBIN 7.3 g/dl (12.0-16.0); LYMPHOCYTES # (AUTO) 0.2 X10'3 (1.1-4.8); LYMPHOCYTES % (AUTO) 1.7 % (21-51); MEAN CORPUSCULAR HEMOGLOBIN 28.6 PG (27.0-31.0); MEAN CORPUSCULAR HGB CONC 31.7 g/dL (33.0-36.5); MEAN CORPUSCULAR VOLUME 90.1 FL (78-98); MEAN PLATELET VOLUME 9.2 FL (7.4-10.4); MONOCYTES # (AUTO) 0.6 X10'3 (0-0.9); MONOCYTES % (AUTO) 5.5 % (2-12); NEUTROPHILS # (AUTO) 9.3 X10'3 (1.8-7.7); NEUTROPHILS % (AUTO) 92.8 % (42-75); PLATELET COUNT 265 X10'3 (140-440); RED BLOOD COUNT 2.56 X10'6 (4.20-5.60); RED CELL DISTRIBUTION WIDTH 22.8 % (11.5-14.5); WHITE BLOOD COUNT 10.1 X10'3 (4.5-11.0)
[2021-05-04 03:21] LABS: D-DIMER 2.87 MG/L FEU (0-0.50)
[2021-05-04] MEDS: ipratropium/albuterol 3ml nebule NEB SCH ×6 (03:27→23:26)
[2021-05-04 03:43] LABS: ALANINE AMINOTRANSFERASE 60 U/L (12-78); ALBUMIN 1.5 G/DL (3.4-5.0); ALBUMIN/GLOBULIN RATIO 0.4 (1.1-1.5); ALKALINE PHOSPHATASE 116 IU/L (46-116); ANION GAP 5 (8-16); ASPARTATE AMINO TRANSFERASE 45 U/L (10-37); BILIRUBIN,TOTAL 0.2 MG/DL (0.1-1.0); BLOOD UREA NITROGEN 127 MG/DL (7-18); C-REACTIVE PROTEIN 3.36 MG/DL (0.0-0.5); CALCIUM 8.5 MG/DL (8.5-10.1); CHLORIDE 114 MMOL/L (99-107); CREATININE 1.46 MG/DL (0.40-0.90); GLUCOSE 177 MG/DL (70-104); SODIUM 150 MMOL/L (135-145); TOTAL PROTEIN 5.6 G/DL (6.4-8.2); eGFR 35 ML/MIN
[2021-05-04 03:46] LABS: POTASSIUM 6.4 MMOL/L (3.5-5.1)
[2021-05-04 03:47] LABS: ABG BASE EXCESS 5.1 mmol/L (-2.0-2.0); ABG HCO3 32.4 mmol/L (22.0-26.0); ABG OXYGEN SATURATION 95.3 % (94-97); ABG PCO2 (T) 64.1 mmHg (32.0-45.0); ABG PO2 (T) 82.2 mmHg (75.0-100.0); ALLEN'S TEST POSITIVE; FCOHb 0.5 % (0.0-3.9); FMetHb 0.1 % (0.0-1.5); FO2Hb 94.7 % (94-97); PATIENT TEMPERATURE 36.8; PEEP 14 cm H2O; RESPIRATORY RATE 28 b/min; TIDAL VOLUME 350 mL
[2021-05-04] MEDS: calcium acetate 667mg (PhosLO) capsule OGT SCH ×6 (04:00→20:00)
[2021-05-04] MEDS ORDERED: insulin regular, human 10 units/0.1 ml syringe IV ONE (04:20)
[2021-05-04] MEDS ORDERED: CALCIUM GLUC 1gm/50ml NACL,iso 50 ML IV PRN (04:20)
[2021-05-04] MEDS ORDERED: sodium polystyrene sulfonate 15gm/60ml oral suspension PO ONE (04:20)
[2021-05-04] MEDS ORDERED: dextrose 50%-water 50ml dispensing syringe IV ONE (04:20)
[2021-05-04] MEDS ORDERED: sodium bicarbonate (8.4%) 1 mEq/ml syringe IV ONE (04:20)
[2021-05-04] MEDS ORDERED: furosemide 20 MG/2 ML vial IV ONE (04:20)
[2021-05-04] MEDS ORDERED: albuterol 2.5 MG/3 ML nebule NEB ONE (04:20)
[2021-05-04] MEDS: pantoprazole 40MG/NS 100ML BAG 100 ML IV SCH ×2 (08:05→20:00)
[2021-05-04] MEDS: FENTANYL-0.9 % NACL/PF 100 ML IV SCH ×2 (08:06→14:54)
[2021-05-04] MEDS: methylPREDNISolone sod succ 125mg/2ml vial IV SCH ×2 (08:08)
[2021-05-04] MEDS: lactobacillus rhamnosus 10,000 MMU CELLS/CAPSULE OGT SCH ×2 (08:09→20:00)
[2021-05-04] MEDS: furosemide 40mg/4ml inj IV SCH (08:09)
[2021-05-04] MEDS: levoTHYROXINE 112mcg tablet OGT SCH (08:09)
[2021-05-04] MEDS: enoxaparin 30mg/0.3ml syringe SUBCUT SCH (08:11)
[2021-05-04] MEDS: insulin regular, human U-100 3ml vial - multi-dose SQ SCH ×2 (10:10→14:32)
[2021-05-04] MEDS: methylPREDNISolone sod succ/PF 40mg inj. IV SCH (16:00)
[2021-05-04 18:16] LABS: ALBUMIN 1.4 G/DL (3.4-5.0); ANION GAP 5 (8-16); BLOOD UREA NITROGEN 112 MG/DL (7-18); BUN/CREATININE RATIO 91.1 (6.6-38.0); CALCIUM 8.1 MG/DL (8.5-10.1); CHLORIDE 120 MMOL/L (99-107); CREATININE 1.23 MG/DL (0.40-0.90); GLUCOSE 93 MG/DL (70-104); POTASSIUM 4.9 MMOL/L (3.5-5.1); eGFR 43 ML/MIN
[2021-05-04 18:18] LABS: SODIUM 159 MMOL/L (135-145)
[2021-05-04] MEDS: mineral oil/petrolatum ophthal oint EACHEYE SCH (20:00)
[2021-05-04] MEDS: insulin glargine (Lantus) pen - multi-dose SQ SCH (21:00)
[2021-05-05] VITALS (24 sets, daily range): BP systolic 101–138; BP diastolic 49–71
[2021-05-05] MEDS: mineral oil/petrolatum ophthal oint EACHEYE SCH ×4 (01:49→19:59)
[2021-05-05] MEDS: FENTANYL-0.9 % NACL/PF 100 ML IV SCH ×5 (02:34→22:59)
[2021-05-05] MEDS: ipratropium/albuterol 3ml nebule NEB SCH ×6 (03:23→23:12)
[2021-05-05 03:52] LABS: BASOPHILS % (AUTO) 0.1 % (0-1); EOSINOPHILS % (AUTO) 0.3 % (0-6); HEMATOCRIT 23.8 % (35.0-45.0); HEMOGLOBIN 7.6 g/dl (12.0-16.0); LYMPHOCYTES # (AUTO) 1.1 X10'3 (1.1-4.8); LYMPHOCYTES % (AUTO) 8.4 % (21-51); MEAN CORPUSCULAR HEMOGLOBIN 28.8 PG (27.0-31.0); MEAN PLATELET VOLUME 9.1 FL (7.4-10.4); MONOCYTES # (AUTO) 0.3 X10'3 (0-0.9); MONOCYTES % (AUTO) 2.4 % (2-12); NEUTROPHILS # (AUTO) 11.3 X10'3 (1.8-7.7); NEUTROPHILS % (AUTO) 88.8 % (42-75); PLATELET COUNT 282 X10'3 (140-440); RED BLOOD COUNT 2.65 X10'6 (4.20-5.60); RED CELL DISTRIBUTION WIDTH 23.4 % (11.5-14.5); WHITE BLOOD COUNT 12.8 X10'3 (4.5-11.0)
[2021-05-05 03:54] LABS: ALANINE AMINOTRANSFERASE 66 U/L (12-78); ALBUMIN 1.5 G/DL (3.4-5.0); ALBUMIN/GLOBULIN RATIO 0.3 (1.1-1.5); ALKALINE PHOSPHATASE 118 IU/L (46-116); ANION GAP 3 (8-16); ASPARTATE AMINO TRANSFERASE 52 U/L (10-37); BILIRUBIN,TOTAL 0.2 MG/DL (0.1-1.0); BLOOD UREA NITROGEN 106 MG/DL (7-18); BUN/CREATININE RATIO 90.6 (6.6-38.0); C-REACTIVE PROTEIN 3.69 MG/DL (0.0-0.5); CALCIUM 8.6 MG/DL (8.5-10.1); CHLORIDE 117 MMOL/L (99-107); CREATININE 1.17 MG/DL (0.40-0.90); GLUCOSE 101 MG/DL (70-104); POTASSIUM 5.2 MMOL/L (3.5-5.1); TOTAL CARBON DIOXIDE 36.1 MMOL/L (24-32); TOTAL PROTEIN 5.8 G/DL (6.4-8.2); eGFR 45 ML/MIN
[2021-05-05 04:06] LABS: ABG BASE EXCESS 11.6 mmol/L (-2.0-2.0); ABG HCO3 38.1 mmol/L (22.0-26.0); ABG OXYGEN SATURATION 90.3 % (94-97); ABG PCO2 (T) 60.6 mmHg (32.0-45.0); ABG PO2 (T) 58.3 mmHg (75.0-100.0); ALLEN'S TEST POSITIVE; FCOHb 0.3 % (0.0-3.9); FMetHb 0.1 % (0.0-1.5); FO2Hb 89.9 % (94-97); PATIENT TEMPERATURE 35.9; PEEP 14 cm H2O; RESPIRATORY RATE 28 b/min; TIDAL VOLUME 350 mL; TOTAL HEMOGLOBIN 8.7 G/dl (12.0-16.0)
[2021-05-05 04:07] LABS: SODIUM 156 MMOL/L (135-145)
[2021-05-05] MEDS: calcium acetate 667mg (PhosLO) capsule OGT SCH ×6 (04:49→19:58)
[2021-05-05] MEDS: pantoprazole 40MG/NS 100ML BAG 100 ML IV SCH ×2 (08:00→19:59)
[2021-05-05] MEDS: methylPREDNISolone sod succ/PF 40mg inj. IV SCH ×3 (08:58→16:00)
[2021-05-05] MEDS: lactobacillus rhamnosus 10,000 MMU CELLS/CAPSULE OGT SCH ×2 (08:58→19:59)
[2021-05-05] MEDS: enoxaparin 30mg/0.3ml syringe SUBCUT SCH (08:58)
[2021-05-05] MEDS: levoTHYROXINE 112mcg tablet OGT SCH (08:59)
[2021-05-05] MEDS: insulin regular, human U-100 3ml vial - multi-dose SQ SCH ×3 (09:35→21:15)
--- NOTE | 2021-05-05 18:30 | NUR ---
Patient in room CICU 2013. I have received report from MAURICE Jasso and had the opportunity to ask questions and assume patient care.
[2021-05-05] MEDS: midazolam 100mg in NS 100ml 100 ML IV PRN (18:46)
[2021-05-05] MEDS: insulin glargine (Lantus) pen - multi-dose SQ SCH (21:00)
[2021-05-06] VITALS (23 sets, daily range): BP systolic 105–155; BP diastolic 43–70
[2021-05-06] MEDS: methylPREDNISolone sod succ/PF 40mg inj. IV SCH ×3 (00:35→19:35)
[2021-05-06] MEDS: calcium acetate 667mg (PhosLO) capsule OGT SCH ×6 (00:35→19:35)
[2021-05-06] MEDS: mineral oil/petrolatum ophthal oint EACHEYE SCH ×4 (02:03→19:35)
[2021-05-06] MEDS: insulin regular, human U-100 3ml vial - multi-dose SQ SCH ×2 (02:25→08:00)
[2021-05-06 02:56] LABS: BASOPHILS % (AUTO) 0 % (0-1); EOSINOPHILS % (AUTO) 0.1 % (0-6); HEMATOCRIT 23.2 % (35.0-45.0); HEMOGLOBIN 7.2 g/dl (12.0-16.0); LYMPHOCYTES # (AUTO) 0.2 X10'3 (1.1-4.8); LYMPHOCYTES % (AUTO) 1.6 % (21-51); MEAN CORPUSCULAR HEMOGLOBIN 28.2 PG (27.0-31.0); MEAN CORPUSCULAR HGB CONC 30.9 g/dL (33.0-36.5); MEAN PLATELET VOLUME 9.2 FL (7.4-10.4); MONOCYTES # (AUTO) 0.3 X10'3 (0-0.9); MONOCYTES % (AUTO) 2.3 % (2-12); NEUTROPHILS # (AUTO) 11.3 X10'3 (1.8-7.7); PLATELET COUNT 302 X10'3 (140-440); RED BLOOD COUNT 2.55 X10'6 (4.20-5.60); RED CELL DISTRIBUTION WIDTH 23.3 % (11.5-14.5); WHITE BLOOD COUNT 11.8 X10'3 (4.5-11.0)
[2021-05-06] MEDS: ipratropium/albuterol 3ml nebule NEB SCH ×6 (03:10→23:27)
[2021-05-06 03:31] LABS: D-DIMER 2.51 MG/L FEU (0-0.50)
[2021-05-06 03:33] LABS: ALANINE AMINOTRANSFERASE 64 U/L (12-78); ALBUMIN 1.5 G/DL (3.4-5.0); ALBUMIN/GLOBULIN RATIO 0.3 (1.1-1.5); ALKALINE PHOSPHATASE 120 IU/L (46-116); ANION GAP 3 (8-16); ASPARTATE AMINO TRANSFERASE 53 U/L (10-37); BILIRUBIN,TOTAL 0.3 MG/DL (0.1-1.0); BLOOD UREA NITROGEN 93 MG/DL (7-18); BUN/CREATININE RATIO 80.2 (6.6-38.0); CALCIUM 8.9 MG/DL (8.5-10.1); CHLORIDE 117 MMOL/L (99-107); CREATININE 1.16 MG/DL (0.40-0.90); GLUCOSE 120 MG/DL (70-104); MAGNESIUM 2.5 MG/DL (1.5-2.4); PHOSPHORUS 4.5 MG/DL (2.3-4.5); POTASSIUM 5.7 MMOL/L (3.5-5.1); TOTAL CARBON DIOXIDE 36.7 MMOL/L (24-32); TOTAL PROTEIN 5.8 G/DL (6.4-8.2); eGFR 46 ML/MIN
[2021-05-06 03:50] LABS: ABG BASE EXCESS 11.8 mmol/L (-2.0-2.0); ABG HCO3 38.6 mmol/L (22.0-26.0); ABG OXYGEN SATURATION 89.6 % (94-97); ABG PCO2 (T) 65.6 mmHg (32.0-45.0); ABG PO2 (T) 60.1 mmHg (75.0-100.0); ALLEN'S TEST POSITIVE; FCOHb 0.4 % (0.0-3.9); FMetHb 0.3 % (0.0-1.5); PATIENT TEMPERATURE 36.5; PEEP 14 cm H2O; RESPIRATORY RATE 28 b/min; TIDAL VOLUME 350 mL; TOTAL HEMOGLOBIN 8.2 G/dl (12.0-16.0)
[2021-05-06 04:03] LABS: SODIUM 157 MMOL/L (135-145)
[2021-05-06 04:10] LABS: ANISOCYTOSIS 3+; HYPOCHROMASIA 1+; PLATELET ESTIMATE NORMAL; STOMATOCYTES FEW; TARGET CELLS FEW
--- NOTE | 2021-05-06 04:35 | NUR ---
Problems reprioritized. Patient report given, questions answered & plan of care reviewed with MAURICE Gu.
[2021-05-06] MEDS: midazolam 100mg in NS 100ml 100 ML IV PRN ×2 (04:44→21:43)
[2021-05-06] MEDS: FENTANYL-0.9 % NACL/PF 100 ML IV SCH ×3 (06:30→20:04)
[2021-05-06] MEDS: lactobacillus rhamnosus 10,000 MMU CELLS/CAPSULE OGT SCH ×2 (07:46→19:34)
[2021-05-06] MEDS: levoTHYROXINE 112mcg tablet OGT SCH (07:46)
[2021-05-06] MEDS: pantoprazole 40MG/NS 100ML BAG 100 ML IV SCH ×2 (07:47→19:43)
[2021-05-06] MEDS: enoxaparin 30mg/0.3ml syringe SUBCUT SCH (07:47)
--- NOTE | 2021-05-06 18:30 | NUR ---
Patient in room CICU 2013. I have received report from MAURICE Johnson and had the opportunity to ask questions and assume patient care. Patient is intubated and sedated, the plan is to prone her later tonight.
[2021-05-06] MEDS ORDERED: dextrose 50%-water 50ml dispensing syringe IV PRN ×2 (19:55)
[2021-05-06] MEDS: dextrose 50%-water 50ml dispensing syringe IV PRN (20:02)
[2021-05-06] MEDS: insulin glargine (Lantus) pen - multi-dose SQ SCH (21:00)
[2021-05-07] VITALS (27 sets, daily range): BP systolic 109–145; BP diastolic 52–75
[2021-05-07] MEDS: mineral oil/petrolatum ophthal oint EACHEYE SCH ×4 (02:26→20:18)
[2021-05-07] MEDS: insulin regular, human U-100 3ml vial - multi-dose SQ SCH ×4 (02:27→20:37)
[2021-05-07] MEDS: ipratropium/albuterol 3ml nebule NEB SCH ×6 (02:52→23:43)
[2021-05-07 02:58] LABS: BASOPHILS % (AUTO) 0.2 % (0-1); EOSINOPHILS % (AUTO) 0 % (0-6); LYMPHOCYTES # (AUTO) 0.2 X10'3 (1.1-4.8); LYMPHOCYTES % (AUTO) 2.1 % (21-51); MEAN CORPUSCULAR HEMOGLOBIN 29.1 PG (27.0-31.0); MEAN CORPUSCULAR HGB CONC 32.1 g/dL (33.0-36.5); MEAN CORPUSCULAR VOLUME 90.5 FL (78-98); MEAN PLATELET VOLUME 9.1 FL (7.4-10.4); MONOCYTES # (AUTO) 0.4 X10'3 (0-0.9); MONOCYTES % (AUTO) 3.6 % (2-12); NEUTROPHILS % (AUTO) 94.1 % (42-75); PLATELET COUNT 283 X10'3 (140-440); RED BLOOD COUNT 2.24 X10'6 (4.20-5.60); WHITE BLOOD COUNT 10.7 X10'3 (4.5-11.0)
[2021-05-07 03:03] LABS: D-DIMER 3.11 MG/L FEU (0-0.50)
[2021-05-07 03:09] LABS: HEMOGLOBIN 6.5 g/dl (12.0-16.0)
[2021-05-07 03:10] LABS: HEMATOCRIT 20.3 % (35.0-45.0)
[2021-05-07 03:15] LABS: ALANINE AMINOTRANSFERASE 59 U/L (12-78); ALBUMIN 1.4 G/DL (3.4-5.0); ALBUMIN/GLOBULIN RATIO 0.3 (1.1-1.5); ALKALINE PHOSPHATASE 106 IU/L (46-116); ANION GAP 4 (8-16); ASPARTATE AMINO TRANSFERASE 52 U/L (10-37); BILIRUBIN,TOTAL 0.2 MG/DL (0.1-1.0); BLOOD UREA NITROGEN 86 MG/DL (7-18); C-REACTIVE PROTEIN 8.92 MG/DL (0.0-0.5); CALCIUM 8.1 MG/DL (8.5-10.1); CHLORIDE 117 MMOL/L (99-107); GLUCOSE 137 MG/DL (70-104); MAGNESIUM 2.3 MG/DL (1.5-2.4); PHOSPHORUS 4.9 MG/DL (2.3-4.5); POTASSIUM 5.8 MMOL/L (3.5-5.1); TOTAL PROTEIN 5.7 G/DL (6.4-8.2); eGFR 54 ML/MIN
--- NOTE | 2021-05-07 03:20 | NUR ---
Cld Dr. Jeffers regarding patient's HH 6.520.3. Per MD order 1unit PRBC and get coags and CBC when done.
[2021-05-07 03:25] LABS: SODIUM 156 MMOL/L (135-145)
[2021-05-07 03:32] LABS: ABG BASE EXCESS 9.1 mmol/L (-2.0-2.0); ABG HCO3 35.8 mmol/L (22.0-26.0); ABG OXYGEN SATURATION 93.7 % (94-97); ABG PCO2 (T) 64.1 mmHg (32.0-45.0); ABG PO2 (T) 74.3 mmHg (75.0-100.0); ALLEN'S TEST POSITIVE; FCOHb 0.4 % (0.0-3.9); FMetHb 0.3 % (0.0-1.5); PATIENT TEMPERATURE 36.6; PEEP 14 cm H2O; RESPIRATORY RATE 28 b/min; TIDAL VOLUME 350 mL; TOTAL HEMOGLOBIN 7.9 G/dl (12.0-16.0)
[2021-05-07] MEDS: calcium acetate 667mg (PhosLO) capsule OGT SCH ×6 (03:56→20:18)
[2021-05-07] MEDS: FENTANYL-0.9 % NACL/PF 100 ML IV SCH ×5 (03:56→22:44)
[2021-05-07 06:12] LABS: ANISOCYTOSIS 3+; PLATELET ESTIMATE NORMAL
--- NOTE | 2021-05-07 06:29 | NUR ---
Problems reprioritized. Patient report given, questions answered & plan of care reviewed with MAURICE Corrales.
[2021-05-07] MEDS: enoxaparin 30mg/0.3ml syringe SUBCUT SCH (08:00)
[2021-05-07] MEDS: pantoprazole 40MG/NS 100ML BAG 100 ML IV SCH ×2 (08:20→20:17)
[2021-05-07] MEDS: lactobacillus rhamnosus 10,000 MMU CELLS/CAPSULE OGT SCH ×2 (08:20→20:18)
[2021-05-07] MEDS: methylPREDNISolone sod succ/PF 40mg inj. IV SCH ×2 (08:20→20:18)
[2021-05-07] MEDS: levoTHYROXINE 112mcg tablet OGT SCH (08:20)
[2021-05-07] MEDS: midazolam 100mg in NS 100ml 100 ML IV PRN (10:51)
--- NOTE | 2021-05-07 12:02 | NUR ---
Reassessment: Pt remains intubated and appears to be tolerating TF at goal rate with GRV WNL. Per chargemaster analyst it was reported that pt had emesis with proning at night though no documentation of it in EMR. MD agrees to changing pt to Corpak if needed. Noted pt not consistently receiving water flushes per rx which was increased to 250 mL Q4H per MD 05/04. Water flushes to change to 150 Q2H per MD at critical care rounds today, EMR updated and RN notified. LBM 05/06, documented with diarrhea, not receiving routine bowel care. Will continue to follow. Recommendations: 1) Continuous TF via OGT using Vital AF with 65 mL/hr goal. To provide 1560 mL total volume/day, 1872 kcal, 117 g protein, and 1265 mL water 2) Monitor for scaled weight and adjust TF recs as appropriate 3) Additional 150 mL water flush Q2H per MD; monitor serum Na and need to adjust 4) Prealbumin q Thursday/ 5) Daily scaled weights Addendum: 05/07/21 at [address] Amended: Links added.
[2021-05-07 12:47] LABS: BASOPHILS % (AUTO) 0.1 % (0-1); EOSINOPHILS % (AUTO) 0.1 % (0-6); HEMATOCRIT 27.8 % (35.0-45.0); HEMOGLOBIN 8.5 g/dl (12.0-16.0); LYMPHOCYTES # (AUTO) 0.2 X10'3 (1.1-4.8); LYMPHOCYTES % (AUTO) 1.8 % (21-51); MEAN CORPUSCULAR HEMOGLOBIN 27.6 PG (27.0-31.0); MEAN CORPUSCULAR HGB CONC 30.5 g/dL (33.0-36.5); MEAN CORPUSCULAR VOLUME 90.5 FL (78-98); MEAN PLATELET VOLUME 9.3 FL (7.4-10.4); MONOCYTES # (AUTO) 0.4 X10'3 (0-0.9); MONOCYTES % (AUTO) 3.4 % (2-12); NEUTROPHILS # (AUTO) 10.5 X10'3 (1.8-7.7); NEUTROPHILS % (AUTO) 94.6 % (42-75); PLATELET COUNT 285 X10'3 (140-440); RED BLOOD COUNT 3.07 X10'6 (4.20-5.60); RED CELL DISTRIBUTION WIDTH 22.2 % (11.5-14.5); WHITE BLOOD COUNT 11.1 X10'3 (4.5-11.0)
[2021-05-07 13:09] LABS: APTT < 20 SECONDS (22-32)
[2021-05-07] MEDS ORDERED: dextrose 50%-water 50ml dispensing syringe IV ONE (13:55)
[2021-05-07] MEDS ORDERED: insulin regular, human 10 units/0.1 ml syringe SQ ONE (13:55)
[2021-05-07] MEDS ORDERED: sodium bicarbonate (8.4%) 1 mEq/ml syringe IV ONE (13:55)
[2021-05-07] MEDS ORDERED: CALCIUM GLUC 1gm/50ml NACL,iso 100 ML IV ONE (13:55)
--- NOTE | 2021-05-07 13:56 | NUR ---
pt proned per md order, arminda well. rt at bedside.
[2021-05-07] MEDS: insulin glargine (Lantus) pen - multi-dose SQ SCH (20:39)
[2021-05-08] VITALS (34 sets, daily range): BP systolic 102–164; BP diastolic 48–68
[2021-05-08] MEDS: calcium acetate 667mg (PhosLO) capsule OGT SCH ×6 (00:33→20:00)
[2021-05-08] MEDS: midazolam 100mg in NS 100ml 100 ML IV PRN ×2 (00:34→13:49)
[2021-05-08] MEDS: mineral oil/petrolatum ophthal oint EACHEYE SCH ×4 (02:07→20:56)
[2021-05-08] MEDS: insulin regular, human U-100 3ml vial - multi-dose SQ SCH ×4 (02:31→21:13)
[2021-05-08] MEDS: FENTANYL-0.9 % NACL/PF 100 ML IV SCH ×4 (03:02→20:47)
[2021-05-08 03:16] LABS: D-DIMER 3.33 MG/L FEU (0-0.50)
[2021-05-08] MEDS: ipratropium/albuterol 3ml nebule NEB SCH ×6 (03:27→22:43)
[2021-05-08 03:44] LABS: ABG BASE EXCESS 8.7 mmol/L (-2.0-2.0); ABG HCO3 35.6 mmol/L (22.0-26.0); ABG OXYGEN SATURATION 91.6 % (94-97); ABG PCO2 (T) 62.2 mmHg (32.0-45.0); ABG PO2 (T) 61.3 mmHg (75.0-100.0); ALLEN'S TEST POSITIVE; FCOHb 0.8 % (0.0-3.9); FMetHb 0.1 % (0.0-1.5); FO2Hb 90.8 % (94-97); PATIENT TEMPERATURE 36.2; PEEP 12 cm H2O; RESPIRATORY RATE 28 b/min; TIDAL VOLUME 350 mL; TOTAL HEMOGLOBIN 8.7 G/dl (12.0-16.0)
--- NOTE | 2021-05-08 06:12 | NUR ---
Problems reprioritized. Patient report given, questions answered & plan of care reviewed with MAURICE Kapoor.
--- NOTE | 2021-05-08 06:27 | NUR ---
This RN and charge histotechnologistGladys at bedside. Patient on 70% fio2, sating 86%, fio2 increased to 90%. RT paged and notified.
[2021-05-08] MEDS: pantoprazole 40MG/NS 100ML BAG 100 ML IV SCH ×2 (07:20→20:56)
[2021-05-08] MEDS: levoTHYROXINE 112mcg tablet OGT SCH (07:21)
[2021-05-08] MEDS: methylPREDNISolone sod succ/PF 40mg inj. IV SCH ×2 (07:21→20:55)
[2021-05-08] MEDS: lactobacillus rhamnosus 10,000 MMU CELLS/CAPSULE OGT SCH ×2 (07:21→20:56)
[2021-05-08] MEDS: enoxaparin 30mg/0.3ml syringe SUBCUT SCH (07:21)
--- NOTE | 2021-05-08 10:46 | NUR ---
Updated MD Larkin on patient states during MDR. Plan for increase in tidal volumes to 400 at this time- RT notified. Plan for CBC and CMP now.
[2021-05-08 11:36] LABS: BASOPHILS % (AUTO) 0.1 % (0-1); EOSINOPHILS % (AUTO) 0.2 % (0-6); HEMATOCRIT 25.2 % (35.0-45.0); LYMPHOCYTES # (AUTO) 0.2 X10'3 (1.1-4.8); LYMPHOCYTES % (AUTO) 2.6 % (21-51); MEAN CORPUSCULAR HEMOGLOBIN 28.7 PG (27.0-31.0); MEAN CORPUSCULAR HGB CONC 31.7 g/dL (33.0-36.5); MEAN CORPUSCULAR VOLUME 90.4 FL (78-98); MEAN PLATELET VOLUME 9.1 FL (7.4-10.4); MONOCYTES # (AUTO) 0.4 X10'3 (0-0.9); NEUTROPHILS # (AUTO) 6.4 X10'3 (1.8-7.7); NEUTROPHILS % (AUTO) 92.1 % (42-75); PLATELET COUNT 265 X10'3 (140-440); RED BLOOD COUNT 2.78 X10'6 (4.20-5.60); RED CELL DISTRIBUTION WIDTH 22.2 % (11.5-14.5)
[2021-05-08 11:45] LABS: ALBUMIN 1.5 G/DL (3.4-5.0); ANION GAP 5 (8-16); BLOOD UREA NITROGEN 81 MG/DL (7-18); BUN/CREATININE RATIO 84.4 (6.6-38.0); CALCIUM 8.6 MG/DL (8.5-10.1); CHLORIDE 113 MMOL/L (99-107); CREATININE 0.96 MG/DL (0.40-0.90); GLUCOSE 131 MG/DL (70-104); POTASSIUM 5.7 MMOL/L (3.5-5.1); SODIUM 152 MMOL/L (135-145); TOTAL CARBON DIOXIDE 34.2 MMOL/L (24-32); eGFR 57 ML/MIN
--- NOTE | 2021-05-08 13:39 | NUR ---
Fent decreased to 200 at this tiem. IOnfusing at 250 when this Rn took over care. Versed remains infusing at 8.
[2021-05-08] MEDS: insulin glargine (Lantus) pen - multi-dose SQ SCH (21:12)
[2021-05-09] VITALS (43 sets, daily range): BP systolic 115–153; BP diastolic 47–64
[2021-05-09] MEDS: FENTANYL-0.9 % NACL/PF 100 ML IV SCH ×5 (01:04→21:07)
[2021-05-09] MEDS: mineral oil/petrolatum ophthal oint EACHEYE SCH ×4 (01:05→20:03)
[2021-05-09] MEDS: midazolam 100mg in NS 100ml 100 ML IV PRN ×2 (02:22→21:00)
[2021-05-09] MEDS: insulin regular, human U-100 3ml vial - multi-dose SQ SCH ×4 (02:30→20:37)
[2021-05-09] MEDS: ipratropium/albuterol 3ml nebule NEB SCH ×6 (02:47→23:24)
[2021-05-09 03:10] LABS: ABG BASE EXCESS 7.4 mmol/L (-2.0-2.0); ABG HCO3 32.9 mmol/L (22.0-26.0); ABG OXYGEN SATURATION 94.5 % (94-97); ABG PCO2 (T) 51.5 mmHg (32.0-45.0); ALLEN'S TEST POSITIVE; FCOHb 0.9 % (0.0-3.9); FMetHb 0.1 % (0.0-1.5); FO2Hb 93.6 % (94-97); PATIENT TEMPERATURE 36.7; PEEP 12 cm H2O; RESPIRATORY RATE 28 b/min; TIDAL VOLUME 400 mL; TOTAL HEMOGLOBIN 8.5 G/dl (12.0-16.0)
[2021-05-09 03:17] LABS: BASOPHILS % (AUTO) 0.2 % (0-1); EOSINOPHILS % (AUTO) 0.1 % (0-6); HEMATOCRIT 24.8 % (35.0-45.0); HEMOGLOBIN 7.9 g/dl (12.0-16.0); LYMPHOCYTES # (AUTO) 0.1 X10'3 (1.1-4.8); LYMPHOCYTES % (AUTO) 2.4 % (21-51); MEAN CORPUSCULAR HEMOGLOBIN 28.5 PG (27.0-31.0); MEAN CORPUSCULAR HGB CONC 31.8 g/dL (33.0-36.5); MEAN CORPUSCULAR VOLUME 89.8 FL (78-98); MEAN PLATELET VOLUME 9.1 FL (7.4-10.4); MONOCYTES # (AUTO) 0.3 X10'3 (0-0.9); MONOCYTES % (AUTO) 4.2 % (2-12); NEUTROPHILS # (AUTO) 5.8 X10'3 (1.8-7.7); NEUTROPHILS % (AUTO) 93.1 % (42-75); PLATELET COUNT 237 X10'3 (140-440); RED BLOOD COUNT 2.76 X10'6 (4.20-5.60); RED CELL DISTRIBUTION WIDTH 21.7 % (11.5-14.5); WHITE BLOOD COUNT 6.3 X10'3 (4.5-11.0)
[2021-05-09 03:27] LABS: D-DIMER 2.25 MG/L FEU (0-0.50)
[2021-05-09 03:33] LABS: ALANINE AMINOTRANSFERASE 46 U/L (12-78); ALBUMIN 1.4 G/DL (3.4-5.0); ALBUMIN/GLOBULIN RATIO 0.3 (1.1-1.5); ALKALINE PHOSPHATASE 109 IU/L (46-116); ANION GAP 2 (8-16); ASPARTATE AMINO TRANSFERASE 48 U/L (10-37); BILIRUBIN,TOTAL 0.3 MG/DL (0.1-1.0); BLOOD UREA NITROGEN 74 MG/DL (7-18); BUN/CREATININE RATIO 85.1 (6.6-38.0); C-REACTIVE PROTEIN 12.23 MG/DL (0.0-0.5); CALCIUM 8.5 MG/DL (8.5-10.1); CHLORIDE 116 MMOL/L (99-107); CREATININE 0.87 MG/DL (0.40-0.90); GLUCOSE 101 MG/DL (70-104); MAGNESIUM 1.9 MG/DL (1.5-2.4); PHOSPHORUS 3.6 MG/DL (2.3-4.5); PREALBUMIN 18.7 MG/DL (19-36); SODIUM 153 MMOL/L (135-145); TOTAL CARBON DIOXIDE 35.1 MMOL/L (24-32); TOTAL PROTEIN 5.6 G/DL (6.4-8.2); eGFR 64 ML/MIN
[2021-05-09 03:42] LABS: ANISOCYTOSIS 3+; PLATELET ESTIMATE NORMAL
[2021-05-09 03:43] LABS: POLYCHROMASIA FEW
[2021-05-09 03:47] LABS: LARGE PLATELETS FEW
[2021-05-09] MEDS: calcium acetate 667mg (PhosLO) capsule OGT SCH ×7 (04:00→23:36)
[2021-05-09] MEDS: pantoprazole 40MG/NS 100ML BAG 100 ML IV SCH ×2 (07:47→20:03)
[2021-05-09] MEDS: lactobacillus rhamnosus 10,000 MMU CELLS/CAPSULE OGT SCH ×2 (07:48→20:03)
[2021-05-09] MEDS: levoTHYROXINE 112mcg tablet OGT SCH (07:48)
[2021-05-09] MEDS: enoxaparin 30mg/0.3ml syringe SUBCUT SCH (07:48)
[2021-05-09] MEDS: methylPREDNISolone sod succ/PF 40mg inj. IV SCH ×2 (07:48→20:02)
--- NOTE | 2021-05-09 10:59 | NUR ---
Versed stopped at this time per MDR with Md Larkin.
[2021-05-09] MEDS ORDERED: bisacodyl 10mg suppository rectal RC STA (11:04)
[2021-05-09] MEDS ORDERED: polyethylene glycol 3350 17gm powd pack PO ONE (11:05)
[2021-05-09] MEDS ORDERED: bisacodyl 10mg suppository rectal RC PRN (11:05)
--- NOTE | 2021-05-09 12:07 | NUR ---
Corpak advanced to 75cm at this time per KUB
[2021-05-09] MEDS: polyethylene glycol 3350 17gm powd pack PO SCH ×3 (20:02→23:34)
[2021-05-09] MEDS: insulin glargine (Lantus) pen - multi-dose SQ SCH (20:38)
[2021-05-10] VITALS (47 sets, daily range): BP systolic 112–154; BP diastolic 54–73
[2021-05-10] MEDS: mineral oil/petrolatum ophthal oint EACHEYE SCH ×4 (01:06→20:43)
[2021-05-10] MEDS: FENTANYL-0.9 % NACL/PF 100 ML IV SCH ×4 (01:42→16:48)
[2021-05-10] MEDS: insulin regular, human U-100 3ml vial - multi-dose SQ SCH ×4 (02:16→21:00)
[2021-05-10 02:46] LABS: BASOPHILS % (AUTO) 0.1 % (0-1); EOSINOPHILS % (AUTO) 0.1 % (0-6); HEMOGLOBIN 7.2 g/dl (12.0-16.0); LYMPHOCYTES # (AUTO) 0.1 X10'3 (1.1-4.8); LYMPHOCYTES % (AUTO) 2.6 % (21-51); MEAN CORPUSCULAR HEMOGLOBIN 29.5 PG (27.0-31.0); MEAN CORPUSCULAR HGB CONC 32.9 g/dL (33.0-36.5); MEAN CORPUSCULAR VOLUME 89.6 FL (78-98); MEAN PLATELET VOLUME 9.2 FL (7.4-10.4); MONOCYTES # (AUTO) 0.2 X10'3 (0-0.9); MONOCYTES % (AUTO) 3.8 % (2-12); NEUTROPHILS # (AUTO) 4.9 X10'3 (1.8-7.7); NEUTROPHILS % (AUTO) 93.4 % (42-75); PLATELET COUNT 185 X10'3 (140-440); RED BLOOD COUNT 2.44 X10'6 (4.20-5.60); RED CELL DISTRIBUTION WIDTH 21.1 % (11.5-14.5); WHITE BLOOD COUNT 5.3 X10'3 (4.5-11.0)
[2021-05-10 02:51] LABS: ABG BASE EXCESS 8.1 mmol/L (-2.0-2.0); ABG HCO3 33.8 mmol/L (22.0-26.0); ABG OXYGEN SATURATION 89.3 % (94-97); ABG PCO2 (T) 53.7 mmHg (32.0-45.0); ABG PO2 (T) 55.8 mmHg (75.0-100.0); ALLEN'S TEST POSITIVE; FCOHb 0.8 % (0.0-3.9); FMetHb 0.2 % (0.0-1.5); FO2Hb 88.4 % (94-97); PATIENT TEMPERATURE 36.6; PEEP 12 cm H2O; RESPIRATORY RATE 28 b/min; TIDAL VOLUME 400 mL; TOTAL HEMOGLOBIN 8.1 G/dl (12.0-16.0)
[2021-05-10 02:58] LABS: ALANINE AMINOTRANSFERASE 58 U/L (12-78); ALBUMIN 1.2 G/DL (3.4-5.0); ALBUMIN/GLOBULIN RATIO 0.3 (1.1-1.5); ALKALINE PHOSPHATASE 118 IU/L (46-116); ANION GAP 0 (8-16); ASPARTATE AMINO TRANSFERASE 60 U/L (10-37); BILIRUBIN,TOTAL 0.4 MG/DL (0.1-1.0); BLOOD UREA NITROGEN 61 MG/DL (7-18); BUN/CREATININE RATIO 71.8 (6.6-38.0); CHLORIDE 112 MMOL/L (99-107); CREATININE 0.85 MG/DL (0.40-0.90); GLUCOSE 177 MG/DL (70-104); MAGNESIUM 1.9 MG/DL (1.5-2.4); PHOSPHORUS 3.9 MG/DL (2.3-4.5); POTASSIUM 5.2 MMOL/L (3.5-5.1); SODIUM 149 MMOL/L (135-145); TOTAL CARBON DIOXIDE 36.8 MMOL/L (24-32); TOTAL PROTEIN 5.7 G/DL (6.4-8.2); eGFR 66 ML/MIN
[2021-05-10 03:00] LABS: HEMATOCRIT 21.9 % (35.0-45.0)
[2021-05-10] MEDS: ipratropium/albuterol 3ml nebule NEB SCH ×6 (03:35→23:02)
[2021-05-10 03:37] LABS: ANISOCYTOSIS 3+; PLATELET ESTIMATE NORMAL
--- NOTE | 2021-05-10 03:37 | NUR ---
Pt was turned to the supine position from prone. Pt desaturated into the mid seventies. 2 minutes of 100% FiO2 was given. Pt was suctioned via ETT, showing a moderate amount of thick marshall secretions. RT was notified and FiO2 was increased to 100% from 75%. CXR was taken stat. Other vital signs remain unchanged; NSR in the 70s, BP 130s over 60s. With 100% FiO2 oxygen saturations increased to 88-90% after approximately five to ten minutes. Scheduled breathing treatment given. Will continue to assess and intervene and appropriate.
[2021-05-10 03:38] LABS: POLYCHROMASIA FEW
[2021-05-10] MEDS: calcium acetate 667mg (PhosLO) capsule OGT SCH ×5 (04:03→20:43)
[2021-05-10] MEDS: lactobacillus rhamnosus 10,000 MMU CELLS/CAPSULE OGT SCH ×2 (07:45→20:42)
[2021-05-10] MEDS: enoxaparin 30mg/0.3ml syringe SUBCUT SCH (07:45)
[2021-05-10] MEDS: furosemide 20 MG/2 ML vial IV SCH ×2 (07:46→20:42)
[2021-05-10] MEDS: methylPREDNISolone sod succ/PF 40mg inj. IV SCH ×2 (07:46→20:42)
[2021-05-10] MEDS: pantoprazole 40MG/NS 100ML BAG 100 ML IV SCH ×2 (07:46→20:42)
[2021-05-10] MEDS: levoTHYROXINE 112mcg tablet OGT SCH (07:46)
[2021-05-10] MEDS: metolazone 2.5mg tablet PO SCH ×2 (08:00→22:21)
--- NOTE | 2021-05-10 11:34 | NUR ---
Reassessment: Pt remains intubated and tolerating TF at goal rate with GRV WNL. Noted pt now with a Corpak in place per EMR. KUB report states tip resides in the stomach, Corpak advanced per chest pain coordinator. LBM 05/08, documented with diarrhea throughout LOS though KUB report states moderate-large amount of retained stool in the colon. Pt started on routine bowel care 05/09. No changes to nutrition recommendations at this time. Will continue to follow. Recommendations: 1) Continuous TF via Corpak using Vital AF with 65 mL/hr goal. To provide 1560 mL total volume/day, 1872 kcal, 117 g protein, and 1265 mL water 2) Monitor for scaled weight and adjust TF recs as appropriate 3) Additional 150 mL water flush Q2H per MD; monitor serum Na and need to adjust 4) Prealbumin q Thursday/ 5) Daily scaled weights 6) Monitor need to continue Phos binder, currently WNL Addendum: 05/10/21 at [address] Amended: Links added.
[2021-05-10] MEDS: polyethylene glycol 3350 17gm powd pack PO SCH (20:42)
[2021-05-10] MEDS: insulin glargine (Lantus) pen - multi-dose SQ SCH (21:01)
[2021-05-11] VITALS (43 sets, daily range): BP systolic 104–154; BP diastolic 46–76
[2021-05-11] MEDS: calcium acetate 667mg (PhosLO) capsule OGT SCH ×6 (00:25→19:53)
[2021-05-11] MEDS: FENTANYL-0.9 % NACL/PF 100 ML IV SCH ×6 (01:55→23:42)
[2021-05-11] MEDS: mineral oil/petrolatum ophthal oint EACHEYE SCH ×4 (01:55→19:52)
[2021-05-11] MEDS: insulin regular, human U-100 3ml vial - multi-dose SQ SCH ×4 (02:23→21:54)
[2021-05-11 02:33] LABS: BASOPHILS % (AUTO) 0.1 % (0-1); EOSINOPHILS % (AUTO) 0 % (0-6); HEMATOCRIT 24.5 % (35.0-45.0); LYMPHOCYTES # (AUTO) 0.2 X10'3 (1.1-4.8); LYMPHOCYTES % (AUTO) 3.1 % (21-51); MEAN CORPUSCULAR HEMOGLOBIN 29.4 PG (27.0-31.0); MEAN CORPUSCULAR HGB CONC 32.7 g/dL (33.0-36.5); MEAN CORPUSCULAR VOLUME 89.9 FL (78-98); MEAN PLATELET VOLUME 9.1 FL (7.4-10.4); MONOCYTES # (AUTO) 0.2 X10'3 (0-0.9); MONOCYTES % (AUTO) 4.7 % (2-12); NEUTROPHILS # (AUTO) 4.7 X10'3 (1.8-7.7); NEUTROPHILS % (AUTO) 92.1 % (42-75); PLATELET COUNT 168 X10'3 (140-440); RED BLOOD COUNT 2.72 X10'6 (4.20-5.60); RED CELL DISTRIBUTION WIDTH 19.5 % (11.5-14.5); WHITE BLOOD COUNT 5.1 X10'3 (4.5-11.0)
[2021-05-11 02:50] LABS: C-REACTIVE PROTEIN 22.16 MG/DL (0.0-0.5)
[2021-05-11] MEDS: ipratropium/albuterol 3ml nebule NEB SCH ×6 (03:01→23:18)
[2021-05-11 03:23] LABS: ABG BASE EXCESS 9.5 mmol/L (-2.0-2.0); ABG HCO3 35.3 mmol/L (22.0-26.0); ABG OXYGEN SATURATION 91.5 % (94-97); ALLEN'S TEST POSITIVE; FCOHb 0.3 % (0.0-3.9); FMetHb 0.1 % (0.0-1.5); FO2Hb 91.1 % (94-97); PATIENT TEMPERATURE 36.5; PEEP 12 cm H2O; RESPIRATORY RATE 28 b/min; TIDAL VOLUME 400 mL; TOTAL HEMOGLOBIN 9.1 G/dl (12.0-16.0)
[2021-05-11 03:34] LABS: PLATELET ESTIMATE NORMAL
[2021-05-11 03:35] LABS: ANISOCYTOSIS 2+
[2021-05-11] MEDS: pantoprazole 40MG/NS 100ML BAG 100 ML IV SCH ×2 (07:50→19:52)
[2021-05-11] MEDS: methylPREDNISolone sod succ/PF 40mg inj. IV SCH ×2 (07:51→19:53)
[2021-05-11] MEDS: enoxaparin 30mg/0.3ml syringe SUBCUT SCH (07:51)
[2021-05-11] MEDS: furosemide 20 MG/2 ML vial IV SCH ×2 (07:51→19:53)
[2021-05-11] MEDS: levoTHYROXINE 112mcg tablet OGT SCH (07:51)
[2021-05-11] MEDS: lactobacillus rhamnosus 10,000 MMU CELLS/CAPSULE OGT SCH ×2 (07:51→19:53)
[2021-05-11] MEDS: metolazone 2.5mg tablet PO SCH ×2 (07:51→19:54)
[2021-05-11] MEDS: propofol 1000mg/100ml bottle 100 ML IV SCH ×2 (09:30→19:32)
--- NOTE | 2021-05-11 10:09 | NUR ---
MD Haynes at bedside. Expressed concern with patients oxygen saturation of 87% on 100% fio2. Peep increased to 13 at this time per MD verbal order. RT notified.
--- NOTE | 2021-05-11 18:20 | NUR ---
Patient in room CICU 2012. I have received report from MAURICE Vicente and had the opportunity to ask questions and assume patient care. Patient currently in prone position, intubated ventilator setting AC PRVC, FiO2 90%. PEEP 13, rate of 28, tidal volume 400. Current oxygen saturation 89%. Patient is sedated with propofol and fentanyl. Normal sinus on marketing intelligence manager.
[2021-05-11] MEDS: polyethylene glycol 3350 17gm powd pack PO SCH (20:11)
[2021-05-11] MEDS: insulin glargine (Lantus) pen - multi-dose SQ SCH (21:56)
--- NOTE | 2021-05-11 22:00 | NUR ---
Oxygen saturation decreasing to 87-88%. FiO2 increased to 95%. Patients respiratory rate 29-30, sedation increased to maintain compliance with ventilator.
[2021-05-12] VITALS (33 sets, daily range): BP systolic 104–149; BP diastolic 45–67
[2021-05-12] MEDS: mineral oil/petrolatum ophthal oint EACHEYE SCH ×4 (02:00→20:08)
[2021-05-12] MEDS: propofol 1000mg/100ml bottle 100 ML IV SCH ×4 (02:32→20:17)
[2021-05-12] MEDS: FENTANYL-0.9 % NACL/PF 100 ML IV SCH ×5 (02:33→20:16)
[2021-05-12] MEDS: insulin regular, human U-100 3ml vial - multi-dose SQ SCH (02:42)
[2021-05-12 02:53] LABS: BASOPHILS % (AUTO) 0.1 % (0-1); EOSINOPHILS % (AUTO) 0.4 % (0-6); HEMATOCRIT 25.4 % (35.0-45.0); HEMOGLOBIN 8.3 g/dl (12.0-16.0); LYMPHOCYTES # (AUTO) 0.2 X10'3 (1.1-4.8); MEAN CORPUSCULAR HGB CONC 32.5 g/dL (33.0-36.5); MEAN CORPUSCULAR VOLUME 89.5 FL (78-98); MEAN PLATELET VOLUME 9.5 FL (7.4-10.4); MONOCYTES # (AUTO) 0.2 X10'3 (0-0.9); MONOCYTES % (AUTO) 4.5 % (2-12); NEUTROPHILS # (AUTO) 3.8 X10'3 (1.8-7.7); PLATELET COUNT 148 X10'3 (140-440); RED BLOOD COUNT 2.84 X10'6 (4.20-5.60); RED CELL DISTRIBUTION WIDTH 19.8 % (11.5-14.5); WHITE BLOOD COUNT 4.3 X10'3 (4.5-11.0)
[2021-05-12 03:00] LABS: ALANINE AMINOTRANSFERASE 95 U/L (12-78); ALBUMIN 1.2 G/DL (3.4-5.0); ALBUMIN/GLOBULIN RATIO 0.2 (1.1-1.5); ALKALINE PHOSPHATASE 148 IU/L (46-116); ANION GAP 3 (8-16); ASPARTATE AMINO TRANSFERASE 79 U/L (10-37); BILIRUBIN,TOTAL 0.5 MG/DL (0.1-1.0); BLOOD UREA NITROGEN 61 MG/DL (7-18); BUN/CREATININE RATIO 71.8 (6.6-38.0); CALCIUM 8.1 MG/DL (8.5-10.1); CHLORIDE 106 MMOL/L (99-107); CREATININE 0.85 MG/DL (0.40-0.90); GLUCOSE 163 MG/DL (70-104); MAGNESIUM 1.8 MG/DL (1.5-2.4); PHOSPHORUS 4.8 MG/DL (2.3-4.5); POTASSIUM 4.2 MMOL/L (3.5-5.1); SODIUM 144 MMOL/L (135-145); TOTAL CARBON DIOXIDE 35.1 MMOL/L (24-32); TOTAL PROTEIN 6.1 G/DL (6.4-8.2); TRIGLYCERIDES 161 MG/DL (20-135); eGFR 66 ML/MIN
[2021-05-12 03:26] LABS: ABG BASE EXCESS 8.4 mmol/L (-2.0-2.0); ABG HCO3 33.9 mmol/L (22.0-26.0); ABG OXYGEN SATURATION 92.8 % (94-97); ABG PCO2 (T) 51.4 mmHg (32.0-45.0); ABG PO2 (T) 65.5 mmHg (75.0-100.0); ALLEN'S TEST Modified; FCOHb 0.4 % (0.0-3.9); FO2Hb 92.4 % (94-97); PATIENT TEMPERATURE 36.4; PEEP 13 cm H2O; RESPIRATORY RATE 28 b/min; TIDAL VOLUME 400 mL; TOTAL HEMOGLOBIN 9.1 G/dl (12.0-16.0)
[2021-05-12] MEDS: ipratropium/albuterol 3ml nebule NEB SCH ×6 (03:42→23:10)
--- NOTE | 2021-05-12 04:00 | NUR ---
0330: patient placed SUPINE, 3 RN's and 2 RT's at bedside. Patient turned without incident. Oxygen saturation decreased to mid to low 80's Patient taking a long time to recover. Requiring increased sedation patient stacking breaths on ventilator and over breathing the ventilator. Patients left eye noted to be swollen, ice pack applied.
[2021-05-12] MEDS: midazolam 100mg in NS 100ml 100 ML IV PRN ×2 (04:36→20:23)
[2021-05-12] MEDS: calcium acetate 667mg (PhosLO) capsule OGT SCH ×8 (04:37→21:56)
--- NOTE | 2021-05-12 04:45 | NUR ---
Patient placed PRONE, not tolerating supine, FiO2 100%. Oxygen saturation decreasing to the low 80's, dyssynchronous with ventilator with increased sedation. Stat chest x-ray completed. Dr. Singh rounding on patient, plan of care and current chest x-ray and labs reviewed with MD. MD agrees that patient needs to be rolled to Prone position. Patient rolled to prone position with 4 RN's and 2 RT's. Patient with increased oxygen saturation to 89-90% Dr. Singh placed order to have patient prone 16 hours and supine for 8 hours as tolerated.
--- NOTE | 2021-05-12 05:45 | NUR ---
Patient large amount emesis: soaking the bed. Oral suction with large amount of emesis out. Corepak tube was dislodged 60cm advanced back to 75cm. delivery mgr at bedside, OG tube placed and connected to low intermittent suction with an additional 150ml of emesis out.
--- NOTE | 2021-05-12 06:25 | NUR ---
Problems reprioritized. Patient report given, questions answered & plan of care reviewed with MAURICE Jonas.
[2021-05-12] MEDS: methylPREDNISolone sod succ/PF 40mg inj. IV SCH ×2 (07:24→20:09)
[2021-05-12] MEDS: furosemide 20 MG/2 ML vial IV SCH ×2 (07:24→20:08)
[2021-05-12] MEDS: levoTHYROXINE 112mcg tablet OGT SCH (07:24)
[2021-05-12] MEDS: metolazone 2.5mg tablet PO SCH ×2 (07:24→20:11)
[2021-05-12] MEDS: lactobacillus rhamnosus 10,000 MMU CELLS/CAPSULE OGT SCH ×2 (07:24→20:08)
[2021-05-12] MEDS: enoxaparin 30mg/0.3ml syringe SUBCUT SCH (07:25)
[2021-05-12] MEDS: pantoprazole 40MG/NS 100ML BAG 100 ML IV SCH ×2 (07:25→20:11)
[2021-05-12] MEDS ORDERED: metoclopramide 5 mg/ml inj IV PRN (10:30)
[2021-05-12 11:32] LABS: ANISOCYTOSIS 2+; PLATELET ESTIMATE NORMAL; POLYCHROMASIA FEW
[2021-05-12 11:33] LABS: POIKILOCYTOSIS FEW
--- NOTE | 2021-05-12 18:05 | NUR ---
Patient in room CICU 2012. I have received report from MAURICE Jonas and had the opportunity to ask questions and assume patient care. Patient is in prone position. 100% FiO2 PEEP 14 rate 28. Patient is sedated per MD orders - See IV spreadsheet. Lung sounds present and equal bilaterally wheezing.
[2021-05-12] MEDS: dextrose 50%-water 50ml dispensing syringe IV PRN (20:01)
[2021-05-12] MEDS: polyethylene glycol 3350 17gm powd pack PO SCH (20:23)
[2021-05-12] MEDS: insulin glargine (Lantus) pen - multi-dose SQ SCH (21:00)
--- NOTE | 2021-05-12 21:00 | NUR ---
Phone call to Dr. Baron re: Hypoglycemia. Blood glucose 60 with a repeat after treatment of 102 mg/dl. Tube feeding is currently off for tonight secondary to emesis this morning. Plan is to re start tube feeding in the morning. ORDER for D10% Water at a rate of 75 ml/hr IV. HOLD Lantus for tonight.
[2021-05-12] MEDS: Dextrose 10%-water IV solution 1,000 ML IV SCH (21:55)
--- NOTE | 2021-05-12 23:40 | NUR ---
Patient placed SUPINE. 3 RN's and 2 RT's at bedside to turn patient supine. Patient remained on 100% FiO2 with slight decrease in oxygen saturation to 90 %. Skin assessment completed, no new wounds found. Optifoam to coccyx. Pillows in place to off load pressure.
[2021-05-13] VITALS (33 sets, daily range): BP systolic 97–141; BP diastolic 46–71
[2021-05-13] MEDS: FENTANYL-0.9 % NACL/PF 100 ML IV SCH ×7 (00:03→21:56)
--- NOTE | 2021-05-13 02:00 | NUR ---
Patient placed PRONE, patient desaturating to the low 80's and becoming dyssynchronous with ventilator. Versed bolus administered per protocol and order. Once prone oxygen saturation did increase to low 90's.
[2021-05-13] MEDS: ipratropium/albuterol 3ml nebule NEB SCH ×6 (02:12→23:10)
[2021-05-13] MEDS: mineral oil/petrolatum ophthal oint EACHEYE SCH ×4 (02:31→20:29)
[2021-05-13 02:54] LABS: BASOPHILS % (AUTO) 0.3 % (0-1); EOSINOPHILS % (AUTO) 0.3 % (0-6); HEMATOCRIT 25.2 % (35.0-45.0); HEMOGLOBIN 8.3 g/dl (12.0-16.0); LYMPHOCYTES # (AUTO) 0.3 X10'3 (1.1-4.8); LYMPHOCYTES % (AUTO) 5.8 % (21-51); MEAN CORPUSCULAR HEMOGLOBIN 29.3 PG (27.0-31.0); MEAN CORPUSCULAR HGB CONC 32.8 g/dL (33.0-36.5); MEAN CORPUSCULAR VOLUME 89.5 FL (78-98); MEAN PLATELET VOLUME 9.3 FL (7.4-10.4); MONOCYTES # (AUTO) 0.2 X10'3 (0-0.9); MONOCYTES % (AUTO) 3.8 % (2-12); NEUTROPHILS # (AUTO) 4.3 X10'3 (1.8-7.7); NEUTROPHILS % (AUTO) 89.8 % (42-75); PLATELET COUNT 160 X10'3 (140-440); RED BLOOD COUNT 2.81 X10'6 (4.20-5.60); RED CELL DISTRIBUTION WIDTH 19.8 % (11.5-14.5); WHITE BLOOD COUNT 4.7 X10'3 (4.5-11.0)
[2021-05-13 03:22] LABS: ALANINE AMINOTRANSFERASE 80 U/L (12-78); ALBUMIN 1.2 G/DL (3.4-5.0); ALBUMIN/GLOBULIN RATIO 0.2 (1.1-1.5); ALKALINE PHOSPHATASE 146 IU/L (46-116); ANION GAP 5 (8-16); ASPARTATE AMINO TRANSFERASE 62 U/L (10-37); BILIRUBIN,TOTAL 0.5 MG/DL (0.1-1.0); BLOOD UREA NITROGEN 52 MG/DL (7-18); BUN/CREATININE RATIO 61.2 (6.6-38.0); CALCIUM 8.7 MG/DL (8.5-10.1); CHLORIDE 102 MMOL/L (99-107); CREATININE 0.85 MG/DL (0.40-0.90); GLUCOSE 124 MG/DL (70-104); MAGNESIUM 1.7 MG/DL (1.5-2.4); POTASSIUM 3.6 MMOL/L (3.5-5.1); PREALBUMIN 14.2 MG/DL (19-36); SODIUM 141 MMOL/L (135-145); TOTAL CARBON DIOXIDE 33.7 MMOL/L (24-32); TOTAL PROTEIN 6.2 G/DL (6.4-8.2); eGFR 66 ML/MIN
[2021-05-13] MEDS: propofol 1000mg/100ml bottle 100 ML IV SCH ×4 (04:11→21:57)
[2021-05-13 04:39] LABS: ABG BASE EXCESS 9.7 mmol/L (-2.0-2.0); ABG HCO3 35.2 mmol/L (22.0-26.0); ABG OXYGEN SATURATION 90.1 % (94-97); ABG PCO2 (T) 51.6 mmHg (32.0-45.0); ABG PO2 (T) 57.5 mmHg (75.0-100.0); ALLEN'S TEST POSITIVE; FCOHb 0.3 % (0.0-3.9); FMetHb 0.1 % (0.0-1.5); FO2Hb 89.7 % (94-97); PATIENT TEMPERATURE 36.3; PEEP 13 cm H2O; RESPIRATORY RATE 28 b/min; TIDAL VOLUME 400 mL; TOTAL HEMOGLOBIN 9.3 G/dl (12.0-16.0)
--- NOTE | 2021-05-13 06:30 | NUR ---
Patient in room CICU 2013. I have received report from Lashay RICHARDS and had the opportunity to ask questions and assume patient care.
--- NOTE | 2021-05-13 06:31 | NUR ---
Problems reprioritized. Patient report given, questions answered & plan of care reviewed with MAURICE Domingo.
[2021-05-13] MEDS: enoxaparin 30mg/0.3ml syringe SUBCUT SCH (07:12)
[2021-05-13] MEDS: levoTHYROXINE 112mcg tablet OGT SCH (07:12)
[2021-05-13] MEDS: methylPREDNISolone sod succ/PF 40mg inj. IV SCH ×2 (07:12→20:28)
[2021-05-13] MEDS: pantoprazole 40MG/NS 100ML BAG 100 ML IV SCH ×2 (07:12→20:28)
[2021-05-13] MEDS: lactobacillus rhamnosus 10,000 MMU CELLS/CAPSULE OGT SCH ×2 (07:12→20:29)
[2021-05-13] MEDS: furosemide 20 MG/2 ML vial IV SCH ×2 (07:12→20:28)
[2021-05-13] MEDS: calcium acetate 667mg (PhosLO) capsule OGT SCH ×4 (07:13→20:29)
[2021-05-13] MEDS: metolazone 2.5mg tablet PO SCH (07:14)
[2021-05-13] MEDS: insulin regular, human U-100 3ml vial - multi-dose SQ SCH ×2 (09:25→14:28)
[2021-05-13 10:00] LABS: ANISOCYTOSIS 2+; GIANT PLATELET FEW; LARGE PLATELETS MODERATE; PLATELET ESTIMATE NORMAL; POIKILOCYTOSIS FEW; POLYCHROMASIA FEW; TOTAL CELLS COUNTED 100
[2021-05-13 10:01] LABS: TOXIC GRANULATION 1+
[2021-05-13 10:02] LABS: HYPOCHROMASIA 1+
[2021-05-13] MEDS: Dextrose 10%-water IV solution 1,000 ML IV SCH ×2 (11:18→23:45)
--- NOTE | 2021-05-13 11:25 | NUR ---
F/u 05/13: Pt TF held yesterday following large emesis episode w/ corpak dislodged and returned to 75cm per EMR. Noted pt corpak in gastric fundus never post-pyloric; air cargo ground operations supervisor agreeable for advancement post-pylorically and restarting TF at 10ml/hr in meantime. LBM 05/07 6 days constipation w/ reglan Q6H to start today per air cargo ground operations supervisor. Pt started on D10 at 75ml/hr for hypoglycemia while TF off; to wean as EN advances per MD. PALB 14.2 down from 18.7 prior likely impacting by holding feeds. Serum Na 141 down from 157 one week prior receiving 150ml Q2H free water flushes to change to 150ml Q6H free water per air cargo ground operations supervisor at rounds. Pt also started on propofol currently at 11.25ml/hr providing additional 297 kcals/day. IF propofol remains will need to adjust EN goal to avoid overfeeding. Will continue to monitor for nutrition support adjustment needs. Recommendations: 1) Continuous TF via Corpak using Vital AF with 65 mL/hr goal. To provide 1560 mL total volume/day, 1872 kcal, 117 g protein, and 1265 mL water 2) Monitor Propofol rate for TF adjustment needs; if remains at 11.25ml/hr; adjust TF to 56ml/hr goal using Vital AF 3) Monitor for scaled weight and adjust TF recs as appropriate 4) Additional 150 mL water flush Q6H per air cargo ground operations supervisor 5) Prealbumin q Thursday/; Daily scaled weights 6) Phos binder per Addendum: 05/13/21 at [address] Amended: Links added.
[2021-05-13 12:47] LABS: D-DIMER 2.95 MG/L FEU (0-0.50)
[2021-05-13] MEDS: midazolam 100mg in NS 100ml 100 ML IV PRN (13:45)
[2021-05-13] MEDS: metoclopramide 5 mg/ml inj IV SCH ×2 (13:45→20:28)
--- NOTE | 2021-05-13 16:07 | NUR ---
Discussed with Dr. Haynes about advancing corpak, unable to advance, need to place new corpak when supine, informed that pt wont be supined until noc shift, okay with corpak being replaced then. Also informed MD that current corpak is in stomach according to xray and that pt has been tolerating trickle Tube feed since 1200. stated he still wants a new corpak placed post pyloric.
--- NOTE | 2021-05-13 18:18 | NUR ---
Problems reprioritized. Patient report given, questions answered & plan of care reviewed with Lashay RICHARDS.
[2021-05-13] MEDS: enoxaparin 40mg/0.4ml syringe SQ SCH (20:30)
[2021-05-13] MEDS: insulin glargine (Lantus) pen - multi-dose SQ SCH (20:30)
[2021-05-13] MEDS: polyethylene glycol 3350 17gm powd pack PO SCH (20:30)
--- NOTE | 2021-05-13 22:00 | NUR ---
Patients sister/ ROBBIE Lyle called for an update. She related that the patients adult children are aware of their mothers condition and may be calling. She would like "basic" information to be given to them and that she would update the remainder as necessary. Several live out of the state. Luanne and David are two of their names. She relates that she attempted to call and speak with case management today. She is wanting a family meeting to discuss the plan of care for her sister.
[2021-05-14] VITALS (33 sets, daily range): BP systolic 86–170; BP diastolic 39–72
[2021-05-14] MEDS: calcium acetate 667mg (PhosLO) capsule OGT SCH ×6 (00:57→20:19)
[2021-05-14] MEDS: FENTANYL-0.9 % NACL/PF 100 ML IV SCH ×6 (01:50→21:30)
[2021-05-14] MEDS: mineral oil/petrolatum ophthal oint EACHEYE SCH ×4 (01:51→20:19)
[2021-05-14] MEDS: metoclopramide 5 mg/ml inj IV SCH ×4 (02:23→20:10)
[2021-05-14] MEDS: ipratropium/albuterol 3ml nebule NEB SCH ×6 (02:37→23:17)
[2021-05-14 02:48] LABS: ABG BASE EXCESS 9.1 mmol/L (-2.0-2.0); ABG HCO3 34.7 mmol/L (22.0-26.0); ABG OXYGEN SATURATION 90.8 % (94-97); ABG PCO2 (T) 54.2 mmHg (32.0-45.0); ABG PO2 (T) 63.2 mmHg (75.0-100.0); ALLEN'S TEST POSITIVE; FCOHb 0.6 % (0.0-3.9); FO2Hb 90.3 % (94-97); PEEP 13 cm H2O; RESPIRATORY RATE 28 b/min; TIDAL VOLUME 400 mL; TOTAL HEMOGLOBIN 9.1 G/dl (12.0-16.0)
[2021-05-14 03:14] LABS: BASOPHILS % (AUTO) 0.2 % (0-1); EOSINOPHILS % (AUTO) 0.2 % (0-6); HEMATOCRIT 24.8 % (35.0-45.0); HEMOGLOBIN 8.1 g/dl (12.0-16.0); LYMPHOCYTES # (AUTO) 0.2 X10'3 (1.1-4.8); LYMPHOCYTES % (AUTO) 3.2 % (21-51); MEAN CORPUSCULAR HGB CONC 32.5 g/dL (33.0-36.5); MEAN CORPUSCULAR VOLUME 89.1 FL (78-98); MEAN PLATELET VOLUME 9.6 FL (7.4-10.4); MONOCYTES # (AUTO) 0.1 X10'3 (0-0.9); MONOCYTES % (AUTO) 2.1 % (2-12); NEUTROPHILS # (AUTO) 6.1 X10'3 (1.8-7.7); NEUTROPHILS % (AUTO) 94.3 % (42-75); PLATELET COUNT 154 X10'3 (140-440); RED BLOOD COUNT 2.78 X10'6 (4.20-5.60); RED CELL DISTRIBUTION WIDTH 19.5 % (11.5-14.5); WHITE BLOOD COUNT 6.5 X10'3 (4.5-11.0)
[2021-05-14 03:29] LABS: ALANINE AMINOTRANSFERASE 64 U/L (12-78); ALBUMIN 1.1 G/DL (3.4-5.0); ALBUMIN/GLOBULIN RATIO 0.2 (1.1-1.5); ALKALINE PHOSPHATASE 145 IU/L (46-116); ANION GAP 2 (8-16); ASPARTATE AMINO TRANSFERASE 54 U/L (10-37); BILIRUBIN,TOTAL 0.4 MG/DL (0.1-1.0); BLOOD UREA NITROGEN 43 MG/DL (7-18); BUN/CREATININE RATIO 58.1 (6.6-38.0); CALCIUM 8.1 MG/DL (8.5-10.1); CHLORIDE 100 MMOL/L (99-107); CREATININE 0.74 MG/DL (0.40-0.90); GLUCOSE 147 MG/DL (70-104); MAGNESIUM 1.6 MG/DL (1.5-2.4); PHOSPHORUS 4.3 MG/DL (2.3-4.5); POTASSIUM 3.3 MMOL/L (3.5-5.1); SODIUM 138 MMOL/L (135-145); TOTAL PROTEIN 6.3 G/DL (6.4-8.2); eGFR 77 ML/MIN
[2021-05-14 04:16] LABS: ANISOCYTOSIS 2+; PLATELET ESTIMATE NORMAL; TOTAL CELLS COUNTED 100
[2021-05-14 04:17] LABS: HYPOCHROMASIA 1+; LARGE PLATELETS FEW; POLYCHROMASIA FEW
[2021-05-14] MEDS: propofol 1000mg/100ml bottle 100 ML IV SCH ×2 (04:28→20:26)
--- NOTE | 2021-05-14 05:00 | NUR ---
Rounds with Dr. Linares, Reviewed current lab work, and events of the night. MD agreed with keeping patient prone troughout the night with the increase in oxygen requirements to maintain saturation of 88%.
[2021-05-14] MEDS: potassium Cl 20 mEq/100mL bag IV SCH ×2 (05:30→05:55)
[2021-05-14] MEDS: midazolam 100mg in NS 100ml 100 ML IV PRN ×2 (05:36→20:24)
--- NOTE | 2021-05-14 06:37 | NUR ---
Patients right toes and bottom of her foot his mottled and purple. Extremity is cold. Positive pulses with doppler.
--- NOTE | 2021-05-14 06:39 | NUR ---
Problems reprioritized. Patient report given, questions answered & plan of care reviewed with MAURICE Graham.
[2021-05-14] MEDS: enoxaparin 40mg/0.4ml syringe SQ SCH ×2 (08:00→20:09)
[2021-05-14] MEDS: pantoprazole 40MG/NS 100ML BAG 100 ML IV SCH ×2 (09:14→20:09)
[2021-05-14] MEDS: lactobacillus rhamnosus 10,000 MMU CELLS/CAPSULE OGT SCH ×2 (09:15→20:11)
[2021-05-14] MEDS: methylPREDNISolone sod succ/PF 40mg inj. IV SCH ×2 (09:15→20:10)
[2021-05-14] MEDS: furosemide 20 MG/2 ML vial IV SCH ×2 (09:15→20:10)
[2021-05-14] MEDS: levoTHYROXINE 112mcg tablet OGT SCH (09:15)
[2021-05-14] MEDS: Dextrose 10%-water IV solution 1,000 ML IV SCH (13:05)
[2021-05-14] MEDS ORDERED: albumin (Human) 5% 250ml 250 ML IV ONE ×4 (18:00)
[2021-05-14] MEDS ORDERED: NORepinephrine 8mg/ 250ml NS 250 ML IV ONE (18:00)
[2021-05-14] MEDS ORDERED: albumin (Human) 5% 250ml 750 ML IV ONE (18:06)
[2021-05-14] MEDS: NORepinephrine 8mg/ 250ml NS 250 ML IV SCH (18:08)
--- NOTE | 2021-05-14 18:30 | NUR ---
Patient in room CICU 2013. I have received report from Gladys RICHARDS and had the opportunity to ask questions and assume patient care.
[2021-05-14] MEDS: polyethylene glycol 3350 17gm powd pack PO SCH (20:11)
[2021-05-14] MEDS: insulin glargine (Lantus) pen - multi-dose SQ SCH (21:00)
[2021-05-15] VITALS (36 sets, daily range): BP systolic 90–223; BP diastolic 39–69
[2021-05-15] MEDS: FENTANYL-0.9 % NACL/PF 100 ML IV SCH ×3 (01:55→11:51)
[2021-05-15] MEDS: calcium acetate 667mg (PhosLO) capsule OGT SCH ×6 (02:00→20:26)
[2021-05-15] MEDS: mineral oil/petrolatum ophthal oint EACHEYE SCH ×4 (02:07→20:21)
[2021-05-15] MEDS: metoclopramide 5 mg/ml inj IV SCH ×4 (02:07→20:26)
[2021-05-15] MEDS: Dextrose 10%-water IV solution 1,000 ML IV SCH ×2 (02:25→15:45)
[2021-05-15 02:44] LABS: BASOPHILS % (AUTO) 0.2 % (0-1); EOSINOPHILS % (AUTO) 0.3 % (0-6); HEMATOCRIT 23.3 % (35.0-45.0); HEMOGLOBIN 7.5 g/dl (12.0-16.0); LYMPHOCYTES # (AUTO) 0.2 X10'3 (1.1-4.8); LYMPHOCYTES % (AUTO) 1.9 % (21-51); MEAN CORPUSCULAR HEMOGLOBIN 28.9 PG (27.0-31.0); MEAN CORPUSCULAR VOLUME 90.1 FL (78-98); MEAN PLATELET VOLUME 9.6 FL (7.4-10.4); MONOCYTES # (AUTO) 0.1 X10'3 (0-0.9); MONOCYTES % (AUTO) 1.5 % (2-12); NEUTROPHILS # (AUTO) 8.4 X10'3 (1.8-7.7); NEUTROPHILS % (AUTO) 96.1 % (42-75); PLATELET COUNT 146 X10'3 (140-440); RED BLOOD COUNT 2.58 X10'6 (4.20-5.60); RED CELL DISTRIBUTION WIDTH 20.1 % (11.5-14.5); WHITE BLOOD COUNT 8.8 X10'3 (4.5-11.0)
[2021-05-15 03:17] LABS: ALANINE AMINOTRANSFERASE 95 U/L (12-78); ALBUMIN/GLOBULIN RATIO 0.6 (1.1-1.5); ALKALINE PHOSPHATASE 172 IU/L (46-116); ANION GAP 3 (8-16); ASPARTATE AMINO TRANSFERASE 88 U/L (10-37); BILIRUBIN,TOTAL 1.8 MG/DL (0.1-1.0); BLOOD UREA NITROGEN 45 MG/DL (7-18); BUN/CREATININE RATIO 62.5 (6.6-38.0); CALCIUM 7.6 MG/DL (8.5-10.1); CHLORIDE 100 MMOL/L (99-107); CREATININE 0.72 MG/DL (0.40-0.90); GLUCOSE 196 MG/DL (70-104); POTASSIUM 3.5 MMOL/L (3.5-5.1); SODIUM 137 MMOL/L (135-145); TOTAL CARBON DIOXIDE 33.9 MMOL/L (24-32); TOTAL PROTEIN 5.6 G/DL (6.4-8.2); eGFR 79 ML/MIN
[2021-05-15] MEDS: propofol 1000mg/100ml bottle 100 ML IV SCH ×6 (03:22→22:53)
[2021-05-15 03:35] LABS: ANISOCYTOSIS 3+; HYPOCHROMASIA 1+; PLATELET ESTIMATE NORMAL; TOTAL CELLS COUNTED 100
[2021-05-15 03:36] LABS: POLYCHROMASIA 1+; ROULEAUX 1+
[2021-05-15 03:37] LABS: LARGE PLATELETS FEW
[2021-05-15] MEDS: ipratropium/albuterol 3ml nebule NEB SCH ×6 (03:41→23:46)
[2021-05-15 03:51] LABS: ABG HCO3 33.6 mmol/L (22.0-26.0); ABG OXYGEN SATURATION 88.9 % (94-97); ABG PCO2 (T) 60.7 mmHg (32.0-45.0); ABG PO2 (T) 56.6 mmHg (75.0-100.0); ALLEN'S TEST POSITIVE; FCOHb 0.4 % (0.0-3.9); FMetHb 0.2 % (0.0-1.5); FO2Hb 88.4 % (94-97); PATIENT TEMPERATURE 36.5; PEEP 13 cm H2O; RESPIRATORY RATE 28 b/min; TIDAL VOLUME 400 mL; TOTAL HEMOGLOBIN 8.2 G/dl (12.0-16.0)
--- NOTE | 2021-05-15 06:44 | NUR ---
Problems reprioritized. Patient report given, questions answered & plan of care reviewed with Gladys RICHARDS.
[2021-05-15] MEDS: furosemide 20 MG/2 ML vial IV SCH ×4 (07:01→23:00)
[2021-05-15] MEDS: enoxaparin 40mg/0.4ml syringe SQ SCH ×2 (08:59→20:25)
[2021-05-15] MEDS: methylPREDNISolone sod succ/PF 40mg inj. IV SCH (08:59)
[2021-05-15] MEDS: cefepime 2g/NS 100ml ADVANTAGE 100 ML IV SCH ×2 (09:00→20:26)
[2021-05-15] MEDS: VANCOmycin 1250MG/NS 250ml Bag 250 ML IV SCH ×2 (09:00→20:27)
[2021-05-15] MEDS: pantoprazole 40MG/NS 100ML BAG 100 ML IV SCH ×2 (09:00→20:26)
[2021-05-15] MEDS: lactobacillus rhamnosus 10,000 MMU CELLS/CAPSULE OGT SCH ×2 (09:00→20:26)
[2021-05-15] MEDS: levoTHYROXINE 112mcg tablet OGT SCH (09:00)
[2021-05-15] MEDS: midazolam 100mg in NS 100ml 100 ML IV PRN ×3 (09:03→20:02)
[2021-05-15] MEDS: CISatracurium besylate inj. 100 MG in normal saline 100ml IV soln 90 ML IV PRN ×2 (10:57→13:11)
[2021-05-15] MEDS ORDERED: magnesium citrate 296ml oral solution PO ONE (11:20)
[2021-05-15] MEDS ORDERED: albumin (Human) 5% 250ml 250 ML IV ONE ×2 (11:30)
[2021-05-15] MEDS: NORepinephrine 8mg/ 250ml NS 250 ML IV SCH (11:47)
--- NOTE | 2021-05-15 11:57 | NUR ---
F/u: Per RN at critical care rounds Propofol rate has increased to 35 mcg/kg/min (15.75 mL/hr) providing 416 kcal/day. Recommend decreased TF goal rate to 50 mL/hr as to not overfeed on the vent, EMR updated and d/w RN. Will continue to follow closely. Recommendations: 1) Given Propofol at 15.75 mL/hr (416 kcal/day), continuous Vital AF at 50 mL/hr to provide 1200 mL/hr, 1440 kcal, 90 g protein, and 973 mL water. Will meet 100% estimated energy needs with kcal combined from Propofol and 95% minimum estimated protein needs 2) If Propofol discontinued, resume continuous TF via Corpak using Vital AF with 65 mL/hr goal. To provide 1560 mL total volume/day, 1872 kcal, 117 g protein, and 1265 mL water 3) Monitor Propofol rate for TF adjustment needs 4) Monitor for scaled weight and adjust TF recs as appropriate 5) Additional 150 mL water flush Q6H per tear down matcher 6) Prealbumin q Thursday/ 7) Daily scaled weights 8) Phos binder per Addendum: 05/15/21 at [address] Amended: Links added. Addendum: 05/15/21 at [address] F/u: Per RN at critical care rounds Propofol rate has increased to 35 mcg/kg/min (15.75 mL/hr) providing 416 kcal/day. Recommend decreased TF goal rate to 50 mL/hr as to not overfeed on the vent, EMR updated and d/w RN. LBM 05/09, receiving routine bowel care and prokinetic agent, pt to receive one time dose of Mag Citrate per MD. Will continue to follow closely.
[2021-05-15] MEDS: FENTANYL IV SCH ×2 (14:57→22:55)
[2021-05-15] MEDS: SODIUM CHLORIDE IV SCH ×2 (14:57→22:55)
[2021-05-15] MEDS: CISatracurium besylate inj. 200 MG in normal saline 250ml IV soln 180 ML IV PRN ×2 (15:28→22:54)
--- NOTE | 2021-05-15 18:14 | NUR ---
Problems reprioritized. Patient report given, questions answered & plan of care reviewed with Huyen RICHARDS.
--- NOTE | 2021-05-15 18:30 | NUR ---
Patient in room CICU 2013. I have received report from Gladys RICHARDS and had the opportunity to ask questions and assume patient care.
[2021-05-15] MEDS: polyethylene glycol 3350 17gm powd pack PO SCH (20:26)
[2021-05-15] MEDS: insulin glargine (Lantus) pen - multi-dose SQ SCH (21:00)
[2021-05-16] VITALS (30 sets, daily range): BP systolic 106–136; BP diastolic 48–76
[2021-05-16] MEDS: calcium acetate 667mg (PhosLO) capsule OGT SCH ×6 (00:05→20:00)
[2021-05-16] MEDS: midazolam 100mg in NS 100ml 100 ML IV PRN ×5 (01:19→22:37)
[2021-05-16] MEDS: fentaNYL/PF inj 2,500 MCG in normal saline 250ml IV soln 200 ML IV SCH (02:34)
[2021-05-16] MEDS: metoclopramide 5 mg/ml inj IV SCH ×4 (02:46→21:19)
[2021-05-16] MEDS: mineral oil/petrolatum ophthal oint EACHEYE SCH ×4 (02:46→20:00)
[2021-05-16] MEDS: propofol 1000mg/100ml bottle 100 ML IV SCH ×4 (02:47→14:59)
[2021-05-16 03:07] LABS: EOSINOPHILS # (AUTO) 0.1 X10'3 (0-0.9); MONOCYTES # (AUTO) 0.2 X10'3 (0-0.9)
[2021-05-16 03:09] LABS: BASOPHILS % (AUTO) 0.2 % (0-1); EOSINOPHILS % (AUTO) 0.7 % (0-6); HEMOGLOBIN 7.5 g/dl (12.0-16.0); LYMPHOCYTES # (AUTO) 0.4 X10'3 (1.1-4.8); LYMPHOCYTES % (AUTO) 3.5 % (21-51); MEAN CORPUSCULAR HEMOGLOBIN 29.3 PG (27.0-31.0); MEAN CORPUSCULAR HGB CONC 32.7 g/dL (33.0-36.5); MEAN CORPUSCULAR VOLUME 89.5 FL (78-98); MEAN PLATELET VOLUME 9.4 FL (7.4-10.4); NEUTROPHILS # (AUTO) 10.7 X10'3 (1.8-7.7); NEUTROPHILS % (AUTO) 93.6 % (42-75); PLATELET COUNT 151 X10'3 (140-440); RED BLOOD COUNT 2.57 X10'6 (4.20-5.60); RED CELL DISTRIBUTION WIDTH 19.9 % (11.5-14.5); WHITE BLOOD COUNT 11.4 X10'3 (4.5-11.0)
[2021-05-16 03:31] LABS: ALANINE AMINOTRANSFERASE 75 U/L (12-78); ALBUMIN 1.8 G/DL (3.4-5.0); ALBUMIN/GLOBULIN RATIO 0.5 (1.1-1.5); ALKALINE PHOSPHATASE 177 IU/L (46-116); ANION GAP 5 (8-16); ASPARTATE AMINO TRANSFERASE 61 U/L (10-37); BLOOD UREA NITROGEN 43 MG/DL (7-18); BUN/CREATININE RATIO 58.1 (6.6-38.0); CHLORIDE 103 MMOL/L (99-107); CREATININE 0.74 MG/DL (0.40-0.90); GLUCOSE 122 MG/DL (70-104); MAGNESIUM 1.8 MG/DL (1.5-2.4); PHOSPHORUS 3.9 MG/DL (2.3-4.5); PREALBUMIN 11.7 MG/DL (19-36); SODIUM 140 MMOL/L (135-145); TOTAL CARBON DIOXIDE 32.5 MMOL/L (24-32); TOTAL PROTEIN 5.4 G/DL (6.4-8.2); eGFR 77 ML/MIN
[2021-05-16] MEDS: ipratropium/albuterol 3ml nebule NEB SCH ×6 (03:38→23:18)
[2021-05-16] MEDS ORDERED: magnesium 2GM in 50ml NS 50 ML IV PRN (03:40)
[2021-05-16] MEDS ORDERED: magnesium 4gm in 100ml NS 100 ML IV PRN (03:40)
[2021-05-16 03:51] LABS: TOTAL CELLS COUNTED 100
[2021-05-16] MEDS: potassium Cl 20mEq/100mL bag 100 ML IV PRN ×4 (03:51→16:58)
[2021-05-16 03:52] LABS: ANISOCYTOSIS 2+; PLATELET ESTIMATE NORMAL
[2021-05-16 03:52] LABS: ABG BASE EXCESS 10.2 mmol/L (-2.0-2.0); ABG OXYGEN SATURATION 93.4 % (94-97); ABG PCO2 (T) 64.5 mmHg (32.0-45.0); ABG PO2 (T) 68.2 mmHg (75.0-100.0); ALLEN'S TEST POSITIVE; FCOHb 0.1 % (0.0-3.9); FMetHb 0.4 % (0.0-1.5); FO2Hb 92.9 % (94-97); PATIENT TEMPERATURE 36.6; PEEP 15 cm H2O; RESPIRATORY RATE 28 b/min; TIDAL VOLUME 400 mL; TOTAL HEMOGLOBIN 8.4 G/dl (12.0-16.0)
[2021-05-16 03:53] LABS: HYPOCHROMASIA 1+; POLYCHROMASIA 1+; TEAR DROP CELLS FEW
[2021-05-16 03:54] LABS: TOXIC GRANULATION 1+
[2021-05-16] MEDS: Dextrose 10%-water IV solution 1,000 ML IV SCH (05:05)
[2021-05-16] MEDS: NORepinephrine 8mg/ 250ml NS 250 ML IV SCH ×2 (05:34→23:21)
--- NOTE | 2021-05-16 06:31 | NUR ---
Problems reprioritized. Patient report given, questions answered & plan of care reviewed with Obi RICHARDS.
[2021-05-16] MEDS: VANCOmycin 1250MG/NS 250ml Bag 250 ML IV SCH (08:44)
[2021-05-16] MEDS: pantoprazole 40MG/NS 100ML BAG 100 ML IV SCH ×2 (08:45→21:19)
[2021-05-16] MEDS: cefepime 2g/NS 100ml ADVANTAGE 100 ML IV SCH ×2 (08:45→21:24)
[2021-05-16] MEDS: methylPREDNISolone sod succ/PF 40mg inj. IV SCH (08:46)
[2021-05-16] MEDS: enoxaparin 40mg/0.4ml syringe SQ SCH ×2 (08:46→21:23)
[2021-05-16] MEDS: levoTHYROXINE 112mcg tablet OGT SCH (08:47)
[2021-05-16] MEDS: furosemide 20 MG/2 ML vial IV SCH ×2 (08:47→15:04)
[2021-05-16] MEDS: lactobacillus rhamnosus 10,000 MMU CELLS/CAPSULE OGT SCH ×2 (08:47→21:31)
[2021-05-16] MEDS ORDERED: VANCOMYCIN LEVEL IV ONE (19:30)
[2021-05-16] MEDS: insulin glargine (Lantus) pen - multi-dose SQ SCH (21:00)
[2021-05-16] MEDS: polyethylene glycol 3350 17gm powd pack PO SCH (21:22)
[2021-05-16] MEDS: insulin regular, human U-100 3ml vial - multi-dose SQ SCH (22:30)
[2021-05-16] MEDS: CISatracurium besylate inj. 200 MG in normal saline 250ml IV soln 180 ML IV PRN (22:38)
[2021-05-17] VITALS (16 sets, daily range): BP systolic 94–131; BP diastolic 40–65
[2021-05-17] MEDS: mineral oil/petrolatum ophthal oint EACHEYE SCH ×2 (02:00→08:00)
[2021-05-17] MEDS: metoclopramide 5 mg/ml inj IV SCH ×2 (02:00→08:00)
[2021-05-17] MEDS: midazolam 100mg in NS 100ml 100 ML IV PRN ×2 (02:52→12:25)
[2021-05-17] MEDS: ipratropium/albuterol 3ml nebule NEB SCH ×2 (02:53→07:19)
[2021-05-17] MEDS: insulin regular, human U-100 3ml vial - multi-dose SQ SCH (02:57)
[2021-05-17 03:10] LABS: ABG BASE EXCESS 0.6 mmol/L (-2.0-2.0); ABG HCO3 28.7 mmol/L (22.0-26.0); ABG OXYGEN SATURATION 90.8 % (94-97); ABG PCO2 (T) 63.3 mmHg (32.0-45.0); ABG PO2 (T) 64.5 mmHg (75.0-100.0); ALLEN'S TEST POSITIVE; FCOHb 0.5 % (0.0-3.9); FMetHb 0.1 % (0.0-1.5); FO2Hb 90.3 % (94-97); PATIENT TEMPERATURE 35.7; PEEP 15 cm H2O; RESPIRATORY RATE 28 b/min; TIDAL VOLUME 400 mL; TOTAL HEMOGLOBIN 9.3 G/dl (12.0-16.0)
[2021-05-17 03:11] LABS: D-DIMER 3.09 MG/L FEU (0-0.50)
[2021-05-17 03:14] LABS: MAGNESIUM 2.1 MG/DL (1.5-2.4)
[2021-05-17] MEDS: propofol 1000mg/100ml bottle 100 ML IV SCH ×3 (03:15→12:19)
[2021-05-17 03:16] LABS: PHOSPHORUS 3.8 MG/DL (2.3-4.5)
[2021-05-17] MEDS: calcium acetate 667mg (PhosLO) capsule OGT SCH ×3 (04:00→08:00)
[2021-05-17] MEDS: Dextrose 10%-water IV solution 1,000 ML IV SCH ×2 (07:45→09:12)
[2021-05-17] MEDS: furosemide 20 MG/2 ML vial IV SCH ×2 (08:00)
[2021-05-17] MEDS: levoTHYROXINE 112mcg tablet OGT SCH (08:00)
[2021-05-17] MEDS: pantoprazole 40MG/NS 100ML BAG 100 ML IV SCH (08:00)
[2021-05-17] MEDS: enoxaparin 40mg/0.4ml syringe SQ SCH (08:00)
[2021-05-17] MEDS: cefepime 2g/NS 100ml ADVANTAGE 100 ML IV SCH (08:00)
[2021-05-17] MEDS ORDERED: methylPREDNISolone sod succ/PF 40mg inj. IV SCH (08:00)
[2021-05-17] MEDS: lactobacillus rhamnosus 10,000 MMU CELLS/CAPSULE OGT SCH (08:00)
[2021-05-17] MEDS: fentaNYL/PF inj 2,500 MCG in normal saline 250ml IV soln 200 ML IV SCH (11:00)
--- NOTE | 2021-05-17 12:28 | NUR ---
F/u: Noted pt has been made DNR with comfort care. TF off at this time per RN at critical care rounds. Will continue to follow per LOS. Recommendations: 1) Bowel care per comfort care measures Addendum: 05/17/21 at [address] Amended: Links added.
--- NOTE | 2021-05-17 14:47 | NUR ---
Patient placed on comfort care. At 1230 patient supined from prone position. At 1340 patient is extubated. Patient at 1357, May 17, 2021. Family at the bedside. [facility] called, referral number [id number]. Patient has been released. home Justin called for arrangements.
== END 2021-05-17 15:59 | DRG 870 ==
LOC: ER 12:35 → ED HOLD 19:51 → CICU 2S 20:55 → ORTHO 4S 04-19 13:11 → CICU 2S 04-25 04:03
PROVIDERS: ADMIT Surgery; ATTEND Surgery
PROC: 02HV33Z Insertion of Infusion Device into Superior Vena Cava, Percutaneous Approach (ICD-10-PCS; 2021-04-18)
PROC: 5A0935A Assistance with Respiratory Ventilation, Less than 24 Consecutive Hours, High Flow/Velocity Cannula (ICD-10-PCS; 2021-04-21)
PROC: 5A0935A Assistance with Respiratory Ventilation, Less than 24 Consecutive Hours, High Flow/Velocity Cannula (ICD-10-PCS; 2021-04-22)
PROC: 5A09457 Assistance with Respiratory Ventilation, 24-96 Consecutive Hours, Continuous Positive Airway Pressure (ICD-10-PCS; 2021-04-23)
PROC: 5A0935A Assistance with Respiratory Ventilation, Less than 24 Consecutive Hours, High Flow/Velocity Cannula (ICD-10-PCS; 2021-04-23)
PROC: 02HV33Z Insertion of Infusion Device into Superior Vena Cava, Percutaneous Approach (ICD-10-PCS; 2021-04-23)
PROC: B548ZZA Ultrasonography of Superior Vena Cava, Guidance (ICD-10-PCS; 2021-04-23)
PROC: 5A1955Z Respiratory Ventilation, Greater than 96 Consecutive Hours (ICD-10-PCS; principal; 2021-04-25)
PROC: 0BH17EZ Insertion of Endotracheal Airway into Trachea, Via Natural or Artificial Opening (ICD-10-PCS; 2021-04-25)
PROC: 30233N1 Transfusion of Nonautologous Red Blood Cells into Peripheral Vein, Percutaneous Approach (ICD-10-PCS; 2021-04-27)
DX: A41.89 Other specified sepsis (principal); U07.1 COVID-19; J12.82 Pneumonia due to coronavirus disease 2019; I21.4 Non-ST elevation (NSTEMI) myocardial infarction; J80 Acute respiratory distress syndrome; E43 Unspecified severe protein-calorie malnutrition; R65.21 Severe sepsis with septic shock; N17.9 Acute kidney failure, unspecified; M62.82 Rhabdomyolysis; I42.9 Cardiomyopathy, unspecified; D84.9 Immunodeficiency, unspecified; E23.0 Hypopituitarism; E87.0 Hyperosmolality and hypernatremia; G93.40 Encephalopathy, unspecified; I13.0 Hypertensive heart and chronic kidney disease with heart failure and stage 1 through stage 4 chronic kidney disease, or unspecified chronic kidney disease; E03.9 Hypothyroidism, unspecified; N18.30 Chronic kidney disease, stage 3 unspecified; I50.9 Heart failure, unspecified; D64.9 Anemia, unspecified; K52.9 Noninfective gastroenteritis and colitis, unspecified; Z66 Do not resuscitate; E66.9 Obesity, unspecified; M54.50 Low back pain, unspecified; R74.01 Elevation of levels of liver transaminase levels; I25.10 Atherosclerotic heart disease of native coronary artery without angina pectoris; E16.2 Hypoglycemia, unspecified; Z88.1 Allergy status to other antibiotic agents; K59.00 Constipation, unspecified; I46.9 Cardiac arrest, cause unspecified; Z68.29 Body mass index [BMI] 29.0-29.9, adult; Z79.899 Other long term (current) drug therapy; E87.6 Hypokalemia; R19.5 Other fecal abnormalities; E87.5 Hyperkalemia; Z78.1 Physical restraint status; Z51.5 Encounter for palliative care
CPT/HCPCS: 36410; 36415; 36430; 36569; 36573; 36600; 70450; 71045; 71250; 74018; 74176; 80048; 80053; 80074; 80076; 81001; 82150; 82272; 82550; 82803; 82948; 83605; 83615; 83690; 83735; 83880; 83935; 84100; 84132; 84134; 84145; 84300; 84443; 84478; 84484; 85007; 85008; 85018; 85025; 85379; 85610; 85730; 86140; 86885; 86900; 86901; 86920; 86922; 87040; 87070; 87077; 87081; 87186; 87324; 87449; 87502; 87503; 87635; 93005; 93306; 93925; 93926; 93970; 94002; 94003; 94640; 94660; 94760; 99285; A7015; C1751; C9113; C9803; G0378; J0131; J0610; J0692; J1100; J1644; J1650; J1720; J1815; J1940; J2250; J2310; J2405; J2543; J2704; J2765; J2920; J2930; J3010; J3370; J3475; J3480; J3490; J7030; J7050; J7060; J7070; J7120; P9016; P9045